=== PATIENT | female | born 1990 | race Asian ===

== ENCOUNTER 2023-07-17 08:00 | Outpatient (CLI) | payer OTHER, SELFPAY ==
--- NOTE | 2023-07-17 08:15 | CRLHL7_ITS ---
For Patients: As a result of the Century Cures Act, medical imaging exams and procedure reports are released immediately into your electronic medical record. You may view this report before your referring provider. If you have questions, please contact your health care provider. INDICATION: First trimester scan, establish dates. COMPARISON: None. TECHNIQUE: Real-time cornelius-scale imaging of the pelvis was performed. FINDINGS: Sonographic imaging demonstrates a single living intrauterine gestation. The embryo demonstrates a regular cardiac rate measuring 167 beats per minute. The embryo`s crown-rump length measurement of 1.9 cm corresponds to a gestational age of 8 weeks 3 days with a sonographic due date of 02/23/2024. There is a normal-appearing yolk sac. There are no gross abnormalities noted within the embryo at this early state of development. The gestational sac has a normal appearance. There is no evidence of a perigestational hemorrhage. The amount of fluid within the sac appears appropriate for gestational age. The cervix is closed. The myometrium appears normal. The ovaries are of normal size. Corpus luteal cyst right ovary. There are no suspicious fluid collections noted in the cul-de-sac. IMPRESSION: Normal first trimester OB ultrasound exam. Gestational age calculated at 8 weeks 3 days with a sonographic due date of 02/23/2024. Dictated by Nick Cabrera MD @ 07/17/2023 10:04:11 AM (Electronically Signed)
== END 2023-07-17 08:01 | disposition home or self-care (01) ==
LOC: US 08:02
PROVIDERS: PCP Nurse Practitioner Family; Visit Provider Advanced Practice Midwife
DX: Z34.91 Encounter for supervision of normal pregnancy, unspecified, first trimester (principal); Z3A.08 8 weeks gestation of pregnancy
CPT/HCPCS: 76817; 86592; 86703; 86704; 86706; 86762; 86787; 86803; 86850; 86900; 86901; 87086; 87340; 87491; 87591

== ENCOUNTER 2023-10-10 08:56 | Outpatient (CLI) | payer OTHER, SELFPAY ==
--- NOTE | 2023-10-10 09:15 | CRLHL7_ITS ---
For Patients: As a result of the Century Cures Act, medical imaging exams and procedure reports are released immediately into your electronic medical record. You may view this report before your referring provider. If you have questions, please contact your health care provider. INDICATION: Evaluate anatomy. COMPARISON: 07/17/2023 TECHNIQUE: Real time cornelius scale imaging of the fetus was performed as well as color Doppler analysis of the umbilical vessels. FINDINGS: Sonographic imaging demonstrates a single living intrauterine gestation. Fetus demonstrates a regular cardiac rate of 157 beats per minute. Fetus has a variable position. The placenta lies left posterior without evidence of placenta previa. Edge of the placenta is located 5.4 cm from the internal cervical os. Amniotic fluid volume appears normal. Single deepest vertical pocket: 4.9 cm. The cervix is closed and measures 4.1 cm in length. The composite ultrasound gestational age is calculated at 20 weeks 5 days with an estimated sonographic due date of 02/22/2024. The estimated weight is 408 grams which lies at the 57th %. The following biometric measurements were obtained: Biparietal diameter: 4.9 cm/20 weeks 6 days 40th% Head circumference: 18.3 cm/20 weeks 4 days 25th% Abdominal circumference: 17.0 cm/22 weeks 0 days 75th% Femur length: 3.3 cm/20 weeks 3 days 23rd% The HC/AC ratio measures: 1.07 range (1.06-1.25) On anatomic survey, there is a normal appearance of the cerebral ventricles, cavum septi pellucidi, cisterna magna and cerebellum. The nose, lips, and facial profile appear normal. The cervical, thoracic and lumbar spine are well visualized and appear normal. There is a normal four-chamber heart view and the left and right ventricular outflow tracts appear normal. The diaphragm and stomach appear normal. The kidneys and bladder also appear normal. There is a normal three-vessel cord and there is an eccentric cord insertion site. The four extremities appear normal. IMPRESSION: Normal OB ultrasound exam with concordance of clinical and sonographic dating. No intrinsic abnormalities noted on anatomic survey. Dictated by Nick Cabrera MD @ 10/10/2023 11:48:47 AM (Electronically Signed)
== END 2023-10-10 08:57 | disposition home or self-care (01) ==
LOC: US 08:57
PROVIDERS: PCP Nurse Practitioner Family; Visit Provider Advanced Practice Midwife
DX: Z34.92 Encounter for supervision of normal pregnancy, unspecified, second trimester (principal); Z3A.20 20 weeks gestation of pregnancy
CPT/HCPCS: 76805

== ENCOUNTER 2023-12-05 10:05 | Outpatient (CLI) | payer OTHER, SELFPAY | END 2023-12-05 10:06 | disposition home or self-care (01) | LOC: NFLDREF 10:06 | PROVIDERS: PCP Nurse Practitioner Family; Visit Provider Advanced Practice Midwife | DX: Z34.83 Encounter for supervision of other normal pregnancy, third trimester (principal) | CPT/HCPCS: 86592 ==

== ENCOUNTER 2023-12-30 16:40 | Outpatient (CLI) | payer OTHER, SELFPAY ==
--- NOTE | 2023-12-30 17:00 | US_ITS ---
Patient: CARRIE MACK Facility:?[facility] Patient ID:?[id number] Site Patient ID:?[id number]. Site :?1990 Study:?US-OB Pelvis OB F/U GROWTH-12/30/2023 6:08:12 PM Ordering Physician:?HEDY TRUJILLO CNM Final Report: OB ULTRASOUND TRANSABDOMINAL LMP: 05/16/2023. GABE by LMP: 02/20/2024. GA: 32w, 4d. Single. INDICATION: Gestational diabetes mellitus Follow-up growth COMPARISON: 10/10/2023. CERVIX: Not visualized. POSITIONING: Vertex. AMNIOTIC FLUID: 7.8 cm. PLACENTA: Technique: Transabdominal. PLACENTA POSITION: Posterior. DOPPLER: heart rate: 141 bpm. Biometry: BPD: 8.4 cm. 33w, 5d, 76 percent. HC: 31.1 cm. 34w, 5d, 71 percent. AC: 28.7 cm. 32w, 5d, 53 percent. FL: 6.0 cm. 31w, 2d, 10 percent. FL/AC ratio: 20.94 percent. HC/AC ratio: 1.08. EFW: 1998 g. Weight: 4 lbs, 6 oz. age by this US: 33w, 1d. GABE by this US: 02/16/2024. Percentile by GABE: 39 percent. IMPRESSION: Estimated weight is at the 39th percentile. KIRA TOMAS M.D. OSCARG:stanley [email or web address] be/Dictated by: Kira Tomas MD @ 12/31/2023 11:00:00 AM Signed by:?Kira Tomas MD @12/31/2023 4:46:00 PM (Electronic Signature)
== END 2023-12-30 16:41 | disposition home or self-care (01) ==
LOC: US 16:41
PROVIDERS: PCP Nurse Practitioner Family; Visit Provider Advanced Practice Midwife
DX: O24.419 Gestational diabetes mellitus in pregnancy, unspecified control (principal); Z3A.32 32 weeks gestation of pregnancy
CPT/HCPCS: 76816

== ENCOUNTER 2024-01-21 00:27 | Outpatient (CLI) | payer OTHER, SELFPAY ==
[2024-01-21 02:09] VITALS: BP 107/59; PULSE 73
[2024-01-21 02:13] VITALS: TEMP 36.8
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
== END 2024-01-21 02:50 | disposition home or self-care (01) ==
LOC: OB OUT 00:29 → OB 00:30
PROVIDERS: PCP Nurse Practitioner Family; Visit Provider Advanced Practice Midwife
DX: O24.419 Gestational diabetes mellitus in pregnancy, unspecified control (principal); Z3A.35 35 weeks gestation of pregnancy
CPT/HCPCS: 59025; G0463

== ENCOUNTER 2024-01-23 10:43 | Outpatient (CLI) | payer OTHER, SELFPAY ==
--- NOTE | 2024-01-23 11:00 | US_ITS ---
Patient: CARRIE MACK Facility:?[facility] Patient ID:?[id number] Site Patient ID:?[id number]. Site :?1990 Study:?US-OB Pelvis growth-01/23/2024 11:21:19 AM Ordering Physician:Dian Aguiar Final Report: INDICATION: gestational diabetes mellitus COMPARISON: 12.30.23 TECHNIQUE: Real time cornelius scale imaging of the fetus was performed. FINDINGS: Sonographic imaging demonstrates a single living intrauterine gestation. Fetus demonstrates a regular cardiac rate of 138 beats per minute. Fetus has a vertex position. The placenta lies posteriorly. Amniotic fluid volume appears normal and there is a single deepest vertical pocket: 6.4 cm. The estimated weight is 3168gm which lies at the 84th %. On the prior OB ultrasound exam dated 12/30/2023 the estimated weight was at the 39th%. BPD 72nd percentile. HC is 68th percentile. AC greater than 97th percentile. FL 8th percentile. The HC/AC ratio measures 0.96 range (0.92-1.05). IMPRESSION: Sonographic gestational age 36 weeks 6 days and sonographic due date of 02/14/2024. Sonographic age 6 days ahead of the clinical age. Estimated weight 84th percentile. Abdominal circumference greater than 97th percentile. Dictated by Nick Cabrera MD @ 01/23/2024 1:10:19 PM Signed by:?Nick Cabrera MD @01/23/2024 1:10:19 PM (Electronic Signature)
== END 2024-01-23 10:44 | disposition home or self-care (01) ==
LOC: US 10:44
PROVIDERS: PCP Nurse Practitioner Family; Visit Provider Advanced Practice Midwife
DX: O24.419 Gestational diabetes mellitus in pregnancy, unspecified control (principal); Z3A.36 36 weeks gestation of pregnancy
CPT/HCPCS: 76816

== ENCOUNTER 2024-01-23 16:15 | Outpatient (CLI) | payer OTHER, SELFPAY ==
[2024-01-24 14:07] LABS: Strep B DNA Probe Negative (Negative)
[2024-01-24 14:50] LABS: Strep B Susceptibility Needed? No
== END 2024-01-23 16:16 | disposition home or self-care (01) ==
LOC: NFLDREF 16:15
PROVIDERS: PCP Nurse Practitioner Family; Visit Provider Advanced Practice Midwife
DX: Z34.93 Encounter for supervision of normal pregnancy, unspecified, third trimester (principal); Z3A.36 36 weeks gestation of pregnancy
CPT/HCPCS: 76816; 87081; 87653

== ENCOUNTER 2024-01-30 14:33 | Outpatient (CLI) | payer OTHER, SELFPAY ==
[2024-01-30 14:44] VITALS: BP 117/81; PULSE 85; PULSE 90; O2SAT 97
[2024-01-30 14:45] VITALS: TEMP 36.6
--- NOTE | 2024-01-30 17:34 | PC.OBNST ---
NST Note NST Note Start: 01/30/24 14:47 Freq: ONCE Status: Active Protocol: Document 01/30/24 17:32 GNOSTICIST (Rec: 01/30/24 17:34 GNOSTICIST [id number]) NST Note 3 Para (# of births) 2 EDC 02/20/24 Gestational Age In Weeks & Days 37 Weeks & 0 Days High Risk Factors Diabetes - Gestational Diet Controlled Patient Presented with Complaint(s) of Other Reactive Yes Appropriate for Gestational Age Yes MAGGIE Velez Date 01/30/24 Reactive Yes Appropriate for Gestational Age Yes MAGGIE Davis Date 01/30/24 OB NST charge Yes Complete NST Note via Write Note Yes The provider's electronic signature indicates the NST is reactive/appropriate for gestational age. *Note to provider: If an addendum is required, open the patient's chart and click on the note under the Nurse/Allied Health tab.
== END 2024-01-30 15:30 | disposition home or self-care (01) ==
LOC: OB OUT 14:35 → OB 14:36
PROVIDERS: PCP Nurse Practitioner Family; Visit Provider Advanced Practice Midwife
DX: O24.419 Gestational diabetes mellitus in pregnancy, unspecified control (principal); Z3A.37 37 weeks gestation of pregnancy
CPT/HCPCS: 59025; G0463

== ENCOUNTER 2024-02-13 07:07 | Inpatient (IN) | payer OTHER, SELFPAY ==
[2024-02-13] VITALS (9 sets, daily range): BP systolic 118–143; BP diastolic 75–85; PULSE 75–89; RESP 14–16; TEMP 36.7–37; BMI 35.0
--- NOTE | 2024-02-13 08:56 | P.LDBA_ITS ---
Documented by User: Tiffanie Lance CNM 02/13/24 10:16 Subjective History of Present Illness Time Seen by Provider: 08:50 Date Seen: 02/13/24 Narrative: Patient is being admitted to Labor and Delivery for IOL due to GDMA1. She is a 33 year old at 39 0/7 weeks gestation. Her full history and physical was dictated by Chanda SAAVEDRA on 01/30/2024. Please see this for details. She has had two previous uncomplicated vaginal births, both with pregnancies with GDM. She has maintained good control of her gdm this . Last US findings below. Specific Issues/Plans : Vee H&P done by Erwin Avila CNM on 01/30/24 1. Gestational Diabetes- Pt accepts dx of GDM for this at 31wks Growth at 33.0 wks: 39% Growth at 36wks: 83%ile, AC 97%ile BID testing currently, continues with diet changes Hx of gestational diabetes X 2. -diet controlled w/ first, insulin w/ second. Encouraged diabetic diet and exercise now. -HgbA1C at NOB: 5.3 -Consider 20 week early GCT: wants to test sugars instead. Normal numbers. OK to stop and begin testing again at 28 -29 wks had spotty testing results, pt to continue and send numbers by portal -additional testing all normal numbers IOL at 39 weeks on 02/12; consent done and sched form filled out 2. 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 Likely somewhat situational, partner deployed shortly after 3. NOB lab results show past infection of Hep B with current immunity. Hep B antigen neg Hep B antibody positive Hep B core positive Covid: vaccinated, not boosted Flu: 07/17 tdap: 12/05/2023 OB - Problem Based A/P Additional Plan (1) Encounter for induction of labor: Status: Acute (2) Gestational diabetes: Status: Acute (3) Supervision of other normal : Status: Acute Plan Glucose checks morning fastings and 2 hr postprandial as assessed at home until in active labor. Then to follow intrapartum glucose monitoring policy when in active labor. Delivery/Labor/Induction Plan Plan: induction Induction method: per misoprostol protocol OB Result Labs Blood Type: AB (+) positive Rubella: immune RPR/VDLR: nonreactive GBS Status: negative HBsAG: negative OB Exam Physical Exam Vital signs: Vitals Reviewed Constitutional:? Alert and oriented x3 HEENT:? Normocephalic, atraumatic Neck:? Supple Lungs:? Clear to auscultation bilaterally Heart:? Regular rate and rhythm, no murmur, rub or gallop Abdomen:? Soft, nontender, and gravid. Vertex by Hero's, confirmed with cervical exam. Extremities:? No edema or erythema Cervix: 1 cm/20%/ballotable/vertex NST: 135 bpm/moderate variability/+accelerations/No decelerations/irregular contractions with some irritability Temp 98.1 F 02/13/24 07:34 Fetus A position: Right Occiput Posterior Documented by User: Morenita Vega CNM 02/13/24 16:11 Subjective History of Present Illness Specific Issues/Plans : Vee H&P done by Erwin Avila CNM on 01/30/24 1. Gestational Diabetes- Pt accepts dx of GDM for this at 31wks Growth at 33.0 wks: 39% Growth at 36wks: 83%ile, AC 97%ile BID testing currently, continues with diet changes Hx of gestational diabetes X 2. -diet controlled w/ first, insulin w/ second. Encouraged diabetic diet and exercise now. -HgbA1C at NOB: 5.3 -Consider 20 week early GCT: wants to test sugars instead. Normal numbers. OK to stop and begin testing again at 28 -29 wks had spotty testing results, pt to continue and send numbers by portal -additional testing all normal numbers IOL at 39 weeks on 02/12; consent done and sched form filled out 2. 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 Likely somewhat situational, partner deployed shortly after 3. NOB lab results show past infection of Hep B with current immunity. Hep B antigen neg Hep B antibody positive Hep B core positive Covid: vaccinated, not boosted Flu: 07/17 tdap: 12/05/2023 OB - Problem Based A/P Additional Plan (1) Encounter for induction of labor: Status: Acute (2) Gestational diabetes: Status: Acute (3) Supervision of other normal : Status: Acute Plan ASSESSMENT:? 33 at 39 0/7 weeks gestation? complicated by:?GDM, Hx of Heb B with immunity Labor type: Induced, not in labor? Category 1 FHR pattern.?? Labor complicated by: None? GBS negative? ? PLAN:? 1. Routine intrapartum cares as ordered. Discussed options and recommend cytotec per protocol every 4 hours. Patient agrees with plan. 2. Monitoring per policy, continuous with induction agent? 3. Planning unmedicated . Desires water . Consent signed. Hep C negative. Candidate for analgesia of choice, if desired.?? 4. Patient encouraged to reposition and ambulate to promote physiologic labor an d .? 5. Glucose checks morning fastings and 2 hr postprandial as assessed at home until in active labor. Then to follow intrapartum glucose monitoring policy when in active labor. 6. Anticipate ? OB Exam Physical Exam Vital signs: Vitals Reviewed Constitutional:? Alert and oriented x3 HEENT:? Normocephalic, atraumatic Neck:? Supple Lungs:? Clear to auscultation bilaterally Heart:? Regular rate and rhythm, no murmur, rub or gallop Abdomen:? Soft, nontender, and gravid. Vertex by Hero's, confirmed with cervical exam. Extremities:? No edema or erythema Cervix: 1 cm/20%/ballotable/vertex NST: 135 bpm/moderate variability/+accelerations/No decelerations/irregular contractions with some irritability Temperature 98.5 F 02/13/24 14:14 Pulse Rate 83 02/13/24 14:14 Blood Pressure 121/75 02/13/24 14:14 Blood Pressure Mean 92 02/13/24 14:14
[2024-02-13] MEDS: miSOPROStoL 25 MCG/0.25 TABLET VAGINAL ×2 (09:33→13:44)
[2024-02-13] MEDS: LACTATED RINGERS 1000 ML 1,000 ML 125 ML IV (21:20)
[2024-02-13] MEDS: OXYTOCIN 30 unit/500 ML in NS 30 UNIT/500 ML BAG IVPB (21:23)
--- NOTE | 2024-02-13 21:32 | PM.OBPNL ---
Subjective Date Seen: 02/13/24 Narrative: Sweta is a 33 yo at 39 0/7 weeks gestation here for IOL for GDM diet controlled. Patient is supported in labor by her partner. Objective Exam: Objective: Constitutional: Alert and oriented x3, moderate distress, coping well Vital signs stable, see nurse documentation Abdomen: gravid, contractions palpate moderate with contractions and soft between Cervix: 3 cm/50%/-3 station/vertex NST: 145 bpm/moderate variability/15x15 accelerations/occasional early decelerations/contractions every 2-5 minutes Vital Signs: Last Vital Signs Temp 98.1 F 02/13/24 17:48 Pulse 83 02/13/24 21:24 BP 128/83 02/13/24 21:24 Plan Plan: ASSESSMENT:? 33 at 39 0/7 weeks gestation? complicated by:?GDM, Hx of Heb B with immunity Labor type: Induced, not in labor? Category 1 FHR pattern.?? Labor complicated by: None? GBS negative? ? PLAN:? 1. Routine intrapartum cares as ordered. Discussed options and recommend cytotec per protocol every 4 hours. Patient agrees with plan. 2. Monitoring per policy, continuous with induction agent? 3. Planning unmedicated . Desires water . Consent signed. Hep C negative. Candidate for analgesia of choice, if desired.?? 4. Patient encouraged to reposition and ambulate to promote physiologic labor and .? 5. Glucose checks 2 hr postprandial as assessed at home until in active labor. Then to follow intrapartum glucose monitoring policy when in active labor. 6. Anticipate ?
[2024-02-14] VITALS (99 sets, daily range): BP systolic 105–149; BP diastolic 58–87; PULSE 71–139; RESP 16; TEMP 36.7–37.4; O2SAT 90–100
[2024-02-14] MEDS: LACTATED RINGERS 1000 ML 1,000 ML 125 ML IV ×3 (05:03→13:35)
--- NOTE | 2024-02-14 07:12 | PM.OBPNL ---
Subjective Time Seen by Provider: 06:00 Date Seen: 02/14/24 Narrative: Sweta is a 33 yo at 39 1/7 weeks gestation here for IOL for GDM diet controlled. Her induction was started with 2 doses of cytotec then IV pitocin. She is feeling painful regular contractions. She desires to discuss AROM. is here for labor support. Objective Exam: Objective: Constitutional: Alert and oriented x3, moderate distress, coping well Vital signs stable, see nurse documentation Abdomen: gravid, contractions palpate strong with contractions and soft between Cervix: 4 cm/60%/-2 station/vertex. AROM of clear fluid NST: 130 bpm/moderate variability/15x15 accelerations/no decelerations/contractions every 3 minutes Vital Signs: Last Vital Signs Temp 98.4 F 02/14/24 05:01 Pulse 74 02/14/24 06:01 Resp 16 02/14/24 05:01 BP 119/77 02/14/24 06:01 Plan Plan: ASSESSMENT:? 33 at 39 1/7 weeks gestation? complicated by:?GDM, Hx of Heb B with immunity Labor type: Induced, active labor Category 1 FHR pattern.?? Labor complicated by: None? GBS negative? ? PLAN:? 1. Routine intrapartum cares as ordered. Discussed options and recommend cytotec per protocol every 4 hours. Patient agrees with plan. 2. Monitoring per policy, continuous with induction agent? 3. Planning unmedicated . Desires water . Consent signed. Hep C negative. Candidate for analgesia of choice, if desired.?? 4. Patient encouraged to reposition and ambulate to promote physiologic labor and .? 5. Glucose checks 2 hr postprandial as assessed at home until in active labor. Then to follow intrapartum glucose monitoring policy when in active labor. 6. Anticipate ?
--- NOTE | 2024-02-14 08:20 | PM.OBPNL ---
Subjective Time Seen by Provider: 08:20 Date Seen: 02/14/24 Narrative: Sweta is laboring and doing well with contractions. She was feeling pushy and had entered the waterbirth tub around 0730. Began to push with some contractions about 0750 then about 15 minutes later wanted to get out of the tub as she felt like she was too buoyant. Began to ask for an epidural as she feels very tired, she got out of the tub into bed and was examined with next contraction found to be . She would like to move forward with and epidural at this time. Objective Exam: VSS, afebrile General Appearance:? Calm, cooperative. ?No acute distress. ? Psychiatric Exam: Alert and oriented, appropriate affect Abdomen: Gravid Ctx: ?Q 3 min apart. ? ? ?Strong FHTs: ?Baseline: 130. ? ? Variability: moderate. ?Accels: -. ? ?Decels: ?early. SVE: Membranes: ?AROM clear Vital Signs: Last Vital Signs Temp 98.1 F 02/14/24 07:18 Pulse 87 02/14/24 07:21 Resp 16 02/14/24 05:01 BP 124/68 02/14/24 07:21 Plan Plan: Assessment:?? at 39.1 weeks gestation?? GBS negative Patient is coping well with challenges of labor.?? Labor type: induced, Active labor? Category 2 FHR pattern.? complicated by: GDM, history of Heb B with immunity Labor complicated by: NA Plan:?? Epidural placement now per pt request Continue with routine intrapartum cares as ordered.?? Patient encouraged to move and change positions to promote physiologic labor and .?? Reassess status once more comfortable Anticipate progress to NVD. ?
[2024-02-14] MEDS: LIDOCAINE 2% (PF) 5 ML VIAL EPIDURAL (08:55)
[2024-02-14] MEDS: ROPIVACAINE 0.2% 100 ml 100 ML 10 MG EPIDURAL (08:55)
--- NOTE | 2024-02-14 09:00 | P.ANBPRC_ITS ---
[facility] Medical History (Updated 02/13/24 @ 09:18 by Tiffanie Lance CNM) History of depression ?Z87.59 - Personal history of other complications of , childbirth and the puerperium (ICD-10) ?Z86.59 - Personal history of other mental and behavioral disorders (ICD-10) Hx gestational diabetes ?Z86.32 - Personal history of gestational diabetes (ICD-10) Surgical History (Updated 01/27/23 @ 08:49 by Monika Blackman APRN, LOULOU) History of wisdom tooth extraction ?K08.409 - Partial loss of teeth, unspecified cause, unspecified class (ICD- 10) Family History (Updated 01/27/23 @ 08:54 by Monika Blackman APRN, LOULOU) Maternal Grandmother Diabetes Father Diabetes Mother Diabetes Social History (Updated 07/17/23 @ 10:23 by Rajni Louise CNM) Narrative: SOCIAL? ? 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 ? 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 ? Partner: Vee, , electronics technician? ? Lives with: Vee, 2 kids? ? Pets: denies? ? Abuse: Denies past Safe at home with current partner ? ? Special Diet: Denies? ? Ok with a blood transfusion: yes? ? Culture or anglican beliefs: Does do a specific diet PP, partner will bring. ? RISK FACTORS? ? Exercise Times/wk: walking and stretches. ? ? Depression/Anxiety: PP depression after first - somewhat situational, partner was deployed just after delivery.? ? Previous Treatments: none Therapy: 2 sessions after first RAJENDRA: 2 PHQ 9: 1? ? Seat Belt Use: Routinely ? Smoking: Denies past/present? ? Alcohol/day: Denies while ? ? Caffeine: occ? ? Drug Use: Denies past/present? ? . 2 children. Works for [employer] No formal exercise. Non-smoker. No alcohol. No illicit drug use. What is your current living situation?: I presently have a place to live Problems where you live: no known problems In the past 12 months, utilities in danger of being shut off: no In past 12 months, lack of transportation kept you from medical appts, meetings, work, or getting things needed for daily living: no In the past 12 mos, have been you worried that your food would run out before you had money to buy more?: never true In the past 12 mos, the food you bought just didn't last and you didn't have money to buy more?: never true Smoking Status: Never smoker How often does anyone, including family, friends and others, physically hurt you : never How often does anyone, including family, friends and others, insult or talk down to you: never How often does anyone, including family, friends and others, threaten you with harm: never How often does anyone, including family, friends and others, scream or curse at you: never Little interest or pleasure in doing things: several days Feeling down, depressed, or hopeless: not at all Meds Home Medications and Allergies Home Medications ?Medication ?Instructions ?Recorded ?Confirmed ?Type vitamin #56-iron 35 mg 1 cap PO QDAY 07/17/23 02/13/24 History and 5 mg-folic acid 1 mg-dha capsule Allergies Allergy/AdvReac Type Severity Reaction Status Date / Time No Known Drug Allergies Allergy Verified 02/13/24 07:46 Results Vital Signs Vital Signs: Last Vital Signs Temp 98.1 F 02/14/24 07:18 Pulse 104 H 02/14/24 08:59 Resp 16 02/14/24 05:01 BP 109/67 02/14/24 08:59 Pulse Ox 100 02/14/24 08:56 Weight: 81.465 kg Height: 152.4 cm Anesthesia Procedures Epidural Insertion Patient Location: OB Start Time: 08:30 Stop Time: 09:05 Start Date: 02/14/24 Stop Date: 02/14/24 Reason for Block: primary anesthetic Patient Position: sitting Performed By: Erik Wharton Preanesthetic Checklist: IV checked, risks and benefits discussed, surgical consent, monitors and equipment checked, pre-op evaluation, timeout performed and anesthesia consent Prep: chlorhexidine gluconate Monitoring: blood pressure monitoring, night monitor, continuous pulse oximetry and heart rate Approach: midline Vertebral Space: lumbar (1-5) Needle Type: Tuohy needle Injection Technique: continuous catheter (catheter) Needle gauge: 17 Needle Length (cm): 10 cm Needle Insertion Depth (cm): 5 Catheter Gauge: 19 Catheter Type: multi-orifice Catheter at skin depth (cm): 10 Test Dose Result: negative and lidocaine 1.5% with epinephrine 1 to 200,000
--- NOTE | 2024-02-14 11:14 | P.OBPN_ITS ---
Subjective Date Seen: 02/14/24 Narrative: ?Sweta is coping well with labor pain/contractions. ?Anai is with her for support. ?She would like to continue with her epidural for comfort and pain management.?She is now comfortable and only feeling some pressure with contractions. Discussed plan going forward, would like to check for dilation and position, if not complete will plan to place IUPC for better assessment of contractions. Pt agrees with the plan. Objective Exam: VSS, afebrile General Appearance:? Calm, cooperative. ?No acute distress. ? Psychiatric Exam: Alert and oriented, appropriate affect Abdomen: Gravid Ctx: ?Q 3-5 min apart. ? ? ?Moderate palpation FHTs: ?Baseline: 140. ? ? Variability: moderate. ?Accels: +. ? ?Decels: ?-. SVE: 9cm/90/-1 Membranes: ?AROM clear Vital Signs: Last Vital Signs Temp 98.1 F 02/14/24 07:18 Pulse 85 02/14/24 11:04 Resp 16 02/14/24 05:01 BP 123/75 02/14/24 11:04 Pulse Ox 90 02/14/24 09:13 Plan Plan: Assessment:?? at 39.1 weeks gestation?? GBS neg Patient is coping well with challenges of labor.?? Labor type: induced, active labor? Category 1 FHR pattern.? complicated by: Diet controlled GDM, Hx Hep B with immunity Labor complicated by: slow progression from 9cm, not complete at this time? Plan:?? IUPC placed for assessment of contraction strength. Continue with routine intrapartum cares as ordered.?? Patient encouraged to move and change positions to promote physiologic labor and .?staff genetic counselor helping with position changes. Epidural now infusing per anesthesia for pain. Increase IV Pitocin per protocol for adequate MVU's. Titrate per patient and response. Anticipate progress to NVD. ?
[2024-02-14 13:49] LABS: Basophils Percent Auto 0.1 % (0.0-3.0); Eosinophils Percent Auto 0.1 % (0.0-7.0); Hematocrit 39.2 % (33.0-51.0); Hemoglobin* 12.6 gm/dL (12.0-16.0); Immature Granulocytes Pct Auto 0.4 %; Mean Corpuscular HGB Conc 32 gm/dL (32-36); Mean Corpuscular Hemoglobin 26 pg (26-34); Mean Corpuscular Volume 82 fL (80-100); Monocytes Percent Auto 5.5 % (0.0-11.0); Neutrophils Percent Auto 85.9 % (42.0-72.0); Platelet Count* 242 K/uL (140-440); RDW Coefficient of Variation % 13.3 % (11.5-15.5); Red Blood Count 4.77 m/uL (4.00-5.20); White Blood Count* 13.92 K/uL (4.50-11.00)
[2024-02-14 13:54] LABS: Slide Review Reflex No
[2024-02-14] MEDS: ACETAMINOPHEN 500 MG TABLET 1000 MG PO (14:57)
--- NOTE | 2024-02-14 15:03 | PM.OBPNL ---
Subjective Time Seen by Provider: 15:05 Date Seen: 02/14/24 Narrative: Sweta has been complete and pushing since 1350. She has strong effort but baby has not made decent with pushing. By vaginal exam baby feels OP, Dr. Watson is requested to come try help turn baby. Will do side-lying release and an inversion to try help change position while waiting for her to arrive. Maternal temp is slightly higher at 99.4 F and Maternal Heart rate is increased in 120-130 range, she is complaining of a head ache. FHR has increased now 160's, still have moderate variability. Encouraged Sweta to rest while waiting for OB provider to arrive. Objective Exam: VSS, afebrile General Appearance:? Calm, cooperative. ?No acute distress. ? Psychiatric Exam: Alert and oriented, appropriate affect Abdomen: Gravid Ctx: ?Q 2-3 min apart. ? ? ? FHTs: ?Baseline: 150. ? ? Variability: moderate. ?Accels: +. ? ?Decels: ?variables. SVE: 10/100/0 Membranes: ?AROM clear Vital Signs: Last Vital Signs Temp 98.8 F 02/14/24 13:15 Pulse 126 H 02/14/24 14:34 Resp 16 02/14/24 05:01 BP 125/64 02/14/24 14:34 Pulse Ox 100 02/14/24 14:58 Contractions Pitocin Rate (mU/min): 15 Assessment Assessment: induction ongoing Station: 0 Amniotic Membrane Status: AROM Status: Category l Plan Plan: Assessment:?? at 39.1 gestation?? GBS neg Patient is coping well with challenges of labor.?? Labor type: induced, Active labor? Category 1 FHR pattern.? complicated by: DC GDM, Hep B infection with immunity Labor complicated by: Slow progression in second stage? Plan:?? consult OB for assessment of position Continue with routine intrapartum cares as ordered.?? Patient encouraged to move and change positions to promote physiologic labor and .?? Epidural infusing for pain management Anticipate progress to NVD. ?
--- NOTE | 2024-02-14 15:40 | P.OBCN_ITS ---
OB - CN: HPI Date of Consult Time Seen by Provider: 15:42 Date Seen: 02/14/24 Patient: [facility] Patient Consult date: 02/14/24 Requesting Physician: Ousmane Avila CNM Primary Care Provider: Monika Blackman APRN, TRAUMA THERAPIST Consult Narrative Narrative: The patient is a 33 year old G 3 P 2 at 39w1d weeks gestation that was admitted to the [facility] on 02/13/24 for induction of labor for GDM A1. is otherwise complicated by a history of GDM and 2 uncomplicated SVDs. Patient was admitted on 02/13/24, s/p Cytotec for cervical ripening with Pitocin and AROM for augmentation. She has had a labor dystocia in the active phase, making slow change but ultimately achieving complete cervical dilation at 1340. After 1 hour of pushing, the consultation was requested by primary provider given suspected OT or OP position. heart rate through the 2nd stage has been primarily category 1. Most recently baseline of 150 beats per minute with moderate variability and accelerations present, decelerations absent. I presented the bedside where Sweta affirms the above history. She notes some ongoing pain with contractions and headache, making it hard to push. We discussed assessment for position and potential interventions, patient agreed to proceed. History History 3 Elective abortions 0 Para 2 Spontaneous abortions 0 Hx # Term Pregnancies 2 Ectopic pregnancies Hx # Pregnancies 0 Multiple births Number of Living Children 2 Past Pregnancies Del. Date GA/Weeks Outcome Route wt Inf Gender Labor Lgth Anesthesia Location Provider Compli 10/27/17 39 live - full term 7 lb 5 oz Male gestational diabetes 06/04/19 39 live - full term 7 lb 5 oz Male gestational diabetes Delivery Date: 10/27/17 Last Updated by: Rajni Louise CNM gestational diabetes, diet controlled Delivery Date: 06/04/19 Last Updated by: Rajni Louise CNM gestational diabetes, insulin controlled Labs Blood type: AB (+) positive Rubella: immune RPR/VDLR: nonreactive GBS status: negative HBsAG: negative OB Labs: Lab Assessment Start: 02/13/24 07:18 Freq: ONCE Status: Complete Protocol: PC.OBGBS Activity Type Activity Date Activity User E-sign Co-sign Detail Recorded Client Recorded Date Recorded By Document 02/13/24 07:30 HCR Desktop 02/13/24 07:46 HCR 02/13/24 07:30 Lab Assessment GBS Status negative GBS Additional Criteria None No Treatment Needed OK Are Labs Available Yes Maternal Blood Type B Maternal RH Factor Positive Evaluate Maternal Rubella Immune Status Immune Hepatitis B Surface Antigen Negative Maternal HIV Status Negative Maternal Syphillis (RPR) Status Negative PFSH PFSH Medical History (Updated 02/13/24 @ 09:18 by Tiffanie Lance CNM) History of depression ?Z87.59 - Personal history of other complications of , childbirth and the puerperium (ICD-10) ?Z86.59 - Personal history of other mental and behavioral disorders (ICD-10) Hx gestational diabetes ?Z86.32 - Personal history of gestational diabetes (ICD-10) Surgical History (Updated 01/27/23 @ 08:49 by Monika Blackman APRN, LOULOU) History of wisdom tooth extraction ?K08.409 - Partial loss of teeth, unspecified cause, unspecified class (ICD- 10) Family History (Updated 01/27/23 @ 08:54 by Monika Blackman APRN, LOULOU) Maternal Grandmother Diabetes Father Diabetes Mother Diabetes Social History (Updated 07/17/23 @ 10:23 by Rajni Louise CNM) Narrative: SOCIAL? ? 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 ? 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 ? Partner: Vee, , microbiological laboratory technician? ? Lives with: Vee, 2 kids? ? Pets: denies? ? Abuse: Denies past Safe at home with current partner ? ? Special Diet: Denies? ? Ok with a blood transfusion: yes? ? Culture or episcopalian beliefs: Does do a specific diet PP, partner will bring. ? RISK FACTORS? ? Exercise Times/wk: walking and stretches. ? ? Depression/Anxiety: PP depression after first - somewhat situational, partner was deployed just after delivery.? ? Previous Treatments: none Therapy: 2 sessions after first RAJENDRA: 2 PHQ 9: 1? ? Seat Belt Use: Routinely ? Smoking: Denies past/present? ? Alcohol/day: Denies while ? ? Caffeine: occ? ? Drug Use: Denies past/present? ? . 2 children. Works for [employer]. No formal exercise. Non-smoker. No alcohol. No illicit drug use. What is your current living situation?: I presently have a place to live Problems where you live: no known problems In the past 12 months, utilities in danger of being shut off: no In past 12 months, lack of transportation kept you from medical appts, meetings, work, or getting things needed for daily living: no In the past 12 mos, have been you worried that your food would run out before you had money to buy more?: never true In the past 12 mos, the food you bought just didn't last and you didn't have money to buy more?: never true Smoking Status: Never smoker How often does anyone, including family, friends and others, physically hurt you : never How often does anyone, including family, friends and others, insult or talk down to you: never How often does anyone, including family, friends and others, threaten you with harm: never How often does anyone, including family, friends and others, scream or curse at you: never Little interest or pleasure in doing things: several days Feeling down, depressed, or hopeless: not at all Meds Home Medications and Allergies Home Medications ?Medication ?Instructions ?Recorded ?Confirmed ?Type vitamin #56-iron 35 mg 1 cap PO QDAY 07/17/23 02/13/24 History and 5 mg-folic acid 1 mg-dha capsule Allergies Allergy/AdvReac Type Severity Reaction Status Date / Time No Known Drug Allergies Allergy Verified 02/13/24 07:46 OB - H&P: Exam Physical Exam: Vital signs: Temp Pulse Resp BP Pulse Ox 99.4 F 109 H 16 116/75 100 02/14/24 14:57 02/14/24 15:35 02/14/24 05:01 02/14/24 15:35 02/14/24 15:38 Narrative: General: Alert and oriented. Breasts are contractions. Abdomen: Gravid. EFW 3600g by [employer]. EFW by last ultrasound on 3168g at the 84%ile with AC >97%ile on 01/22. Cervix: Complete cervical dilation. 0 station. position palpates between ROP and ROT, anterior fontanelle at 2 o'clock. Transabdominal ultrasound: spine noted to maternal right. OB - Results Labs Labs: Short CBC 02/14/24 Range/Units 13:35 WBC 13.92 H (4.50-11.00) K/uL Hgb 12.6 (12.0-16.0) gm/dL Hct 39.2 (33.0-51.0) % Plt Count 242 (140-440) K/uL OB - CN: A/P Assessment and Plan (1) Encounter for induction of labor: Status: Acute (2) Gestational diabetes: Status: Acute (3) Supervision of other normal : Status: Acute Plan Sweta is a 33yo at 39w1d GA ongoing IOL for GDMA1. Labor progress notable for slow progress through the active phase, now complete and pushing for 1 hour without descent. Ob consultation was requested by QUENTIN Romeo given suspected malposition. On my exam, anterior fontanelle palpates at approximately 2 o'clock consistent with suspected ROP position. TAUS confirms spine to the maternal right. We discussed options for management OP, including expected management with cont inued expulsive efforts for a total of 3 hours (multip with epidural) versus manual rotation. We reviewed potential benefit of manual rotation would be to shorten the second stage but risks include that we may not be successful, fetus could convert back to ROP, heart rate changes and cord accident. Sweta notes her energy is low and feels like she can't push any longer. Explained is always an option but I would not medically recommend it at this time. Reviewed risks of including difficulty with extraction (possibly impacted head), bleeding, infection, damage to surrounding structures such as the uterus, tubes, ovaries, bowel, bladder or blood vessels. Sweta and her considered their options further. Upon return to the room, she expresses a desire of manual rotation followed by pushing. Repeat exam was performed, where the head was gently grasped from ROP position and elevated. Clockwise rotation of the head was attempted slowly, where position was easily revised to ROT. A second rotation effort was completed where digital exam and by TAUS direct OA position was confirmed. head was gently guided back into pelvis along with maternal expulsive efforts, ultimately at 0 station. Continuous heart rate monitoring was completed, category 1 throughout. Plan to continue maternal expulsive efforts with primary Ob provider. I will reassess shortly. Recommend trial of at least one hour of pushing before medically indicated delivery, could consider C/S sooner by maternal request.
--- NOTE | 2024-02-14 18:34 | W.PM.VAGDE_ITS ---
OB Procedure Vag Delivery Mother Details Mother Details: The patient is a 33 year-old, 3, Para 2, admitted on 02/13/24 at 39.0 weeks gestation for induction of labor for diet controlled GDM. : 3 Para: 2 Weeks Gestation: 39.1 Admission Date: 02/13/24 Additional Details Amniotic Membrane Status: AROM Amniotic Membrane Rupture Date: 02/14/24 Amniotic Membrane Rupture Time: 05:58 Amniotic Membrane Fluid Description: Clear Analgesia/Anesthesia Type: Epidural Waterbirth: No Pitcoin: Yes Intrapartal Events: Labor Induction Induction Method: per misoprostol protocol and per pitocin protocol Delivery augmentation: rupture of membranes Labor Onset: 06:00 Complete: 13:39 Pushin:50 Heart: heart tones during second stage were Category 2, continuously monitored with occasional variables. Delivery Details Delivery Date: 02/14/24 Delivery Time: 18:10 Route of delivery: Gender: Male Infant Viability: Alive; Heart Rate Present Position at Delivery: OA Delivery Details: 33?y.o?at 39.1 weeks.? Sweta was admitted on 02/13/24 for induction of labor, she was started on Cytotec for cervical ripening and slept overnight. She was then switched to IV Pitocin once she had a more favorable cervix. Was AROM'd this morning at 0558 for clear fluid and then was feeling pushy so entered the waterbirth tub and was pushing spontaneously with some contractions. After a short time she desired to get out of the tub and was requesting an epidural. Prior to placement she was found to be 9 cm. She was progressing slowly and was checked approximately an hour after epidural placement and had not made cervical change. An IUPC was placed for better monitoring of contractions and noted to be inadequate. IV Pitocin was titrated up per protocol to max dose of 15mu/hr then she progressed to complete at 1339. She began pushing at 1350 but was not moving baby after one hour. OB tar and ammonia pump operator was consulted, Dr. Watson came to the bedside and manually turned baby to OA position, see her note for details. Sweta then started pushing again at 1615 and made good progress. ?She pushed in multiple positions effectively, total time of pushing was approximately 3 hours. ?Contactions were spaced out considerably after head was repositioned and needed IV Pitocin which had been turned down during repositioning to be titrated back up to 14 mu/hr done per protocol. ? ? Spontaneous vaginal delivery at 1810 of?a viable?male infant.??Delivered in vertex OA position.??Shoulders delivered easily.? Spontaneous cry noted.?? placed on maternal abdomen.??Cord?was clamped and cut after a 5+ minute delay.??Nose and mouth were bulb suctioned.? Shoulder dystocia: no? Nuchal cord: no? Meconium stained?fluid: no? Water : no? ? ? 7 at 1 minute and 8 at 5 minutes.? Weight is pending. ? Placenta delivered spontaneously and?complete?at 1820 with a?3 vessel?cord.?? Bleeding controlled with fundal massage and?pitocin?for AMTSL.? ? Mother and were stable after delivery.? ? Lacerations:? No tears observed, small abrasions to labia and perineum. Swollen perineal tissue. ? Bleeding?post delivery?was: minimal. ?The fundus was firm to palpation.? Blood loss: 100?mL.? Blood loss measurement type: QBL? ? ? Sponge,?lap?and needles counts are correct.? Mother and were stable after delivery.? 1 Minute Interval Total Score: 7 5 Minute Interval Total Score: 8 Additional Details Shoulder Dystocia: No Placenta Delivery Time: 18:20 Placental Delivery Description: Spontaneous Procedure Done: Global Blood Loss: 100 Laceration: Superficial Blood Loss Measurement Type: QBL Bakri Used: No Sponge/Need Count Correct: Yes Cord Vessel Description: 3 Vessels Event Summary Status: Mother and were stable after delivery. Disposition: floor
[2024-02-14 19:15] LABS: Hematocrit 37.9 % (33.0-51.0); Hemoglobin* 12.3 gm/dL (12.0-16.0); Mean Corpuscular HGB Conc 33 gm/dL (32-36); Mean Corpuscular Hemoglobin 27 pg (26-34); Mean Corpuscular Volume 82 fL (80-100); Platelet Count* 238 K/uL (140-440); Red Blood Count 4.65 m/uL (4.00-5.20); White Blood Count* 19.61 K/uL (4.50-11.00)
[2024-02-14 19:17] LABS: Slide Review Reflex No
[2024-02-14 19:33] LABS: Aspartate Amino Transferase* 21 U/L (12-35); Blood Urea Nitrogen* 12 mg/dL (5-24); Creatinine* 0.7 mg/dL (0.5-1.5); Est. Creatinine Clearance* 82.88; Estimated Glomerular Filt Rate 118 ml/min
[2024-02-14 19:34] LABS: Alanine Aminotransferase* 14 U/L (4-35)
[2024-02-14] MEDS: IBUPROFEN 600 MG TABLET PO (22:00)
[2024-02-15 00:17] VITALS: BP 99/67; PULSE 114; RESP 18; TEMP 37.1; O2SAT 99
[2024-02-15 03:38] VITALS: BP 92/61; PULSE 80; RESP 16; TEMP 36.6; O2SAT 98
[2024-02-15] MEDS: IBUPROFEN 600 MG TABLET PO ×2 (06:21→18:02)
[2024-02-15 07:10] LABS: Glucose Fasting 89 mg/dl (70-95)
--- NOTE | 2024-02-15 07:26 | PM.OBDSVD1 ---
DS: Providers Provider Date Seen: 02/15/24 Date of admission: 02/13/24 07:07 Primary care physician: Monika Blackman, MULTI PURPOSE MACHINE OPERATOR, AUDITING MANAGER Admitting Clinician: Morenita Vega CNM Consults: 02/14/24 15:39 Consult to Physician [CONS] Routine Comment: Consulting Provider: Xiomara Watson Has provider been notified: Yes Attending Physician on discharge: Ousmane Avila CNM Date of Discharge: 02/15/24 DS: Diagnosis Discharge Diagnosis (1) care and examination immediately after delivery: Status: Acute (2) Lactating mother: Status: Acute (3) Gestational [-induced] hypertension without significant proteinuria, complicating childbirth: Status: Acute Exam Narrative: Exam Narrative: VSS, afebrile GENERAL APPEARANCE: ?normal affect, alert, no distress MOOD: ?appropriate HEENT: normocephalic, neck supple, full ROM CHEST: ?Symmetrical chest wall movement. ?Normal respiratory effort. ?Clear to auscultation HEART: ?regular rate and rhythm ABDOMEN: ?soft, non-tender. Uterine fundus is firm, at Umbilicus, Midline and is appropriate for the stage of recovery. ?Bowel sounds present. PERINEUM: ?mild edema of the perineum, there is no tear. EXTREMITIES: ?normal and no edema Const: Vital Signs, click to edit/add: Vital Signs - 24 hr 02/14/24 08:23 02/14/24 08:26 02/14/24 08:36 Temperature Pulse Rate Pulse Rate [Blood Pressure Cuff] Respiratory Rate Blood Pressure Blood Pressure [Ri ght Arm] Pulse Oximetry 100 91 [facility] 02[facility] 08:41 02/14/24 08:46 02/14/24 08:50 Temperature Pulse Rate 103 H Pulse Rate [Blood Pressure Cuff] Respiratory Rate Blood Pressure 144/74 H Blood Pressure [Ri ght Arm] Pulse Oximetry 100 100 [facility] 02/14/24 08:51 02/14/24 08:52 02/14/24 08:54 Temperature Pulse Rate 92 121 H Pulse Rate [Blood Pressure Cuff] Respiratory Rate Blood Pressure 132/69 137/81 Blood Pressure [Ri ght Arm] Pulse Oximetry 100 [facility] 02/14/24 08:56 02/14/24 08:59 02/14/24 09:00 Temperature Pulse Rate 85 104 H 92 Pulse Rate [Blood Pressure Cuff] Respiratory Rate Blood Pressure 107/69 109/67 109/61 Blood Pressure [Ri ght Arm] Pulse Oximetry 100 Oxygen Delivery Co thod 02/14/24 09:01 02/14/24 09:06 02/14/24 09:11 Temperature Pulse Rate 89 Pulse Rate [Blood Pressure Cuff] Respiratory Rate Blood Pressure 109/58 L Blood Pressure [Ri ght Arm] Pulse Oximetry 100 99 97 [facility] 02/14/24 09:13 02/14/24 09:16 02/14/24 09:21 Temperature Pulse Rate 82 85 Pulse Rate [Blood Pressure Cuff] Respiratory Rate Blood Pressure 107/67 105/65 Blood Pressure [Ri ght Arm] Pulse Oximetry 90 [facility] 02/14/24 09:27 02/14/24 09:32 02/14/24 09:49 Temperature Pulse Rate 88 91 85 Pulse Rate [Blood Pressure Cuff] Respiratory Rate Blood Pressure 120/69 135/73 111/71 Blood Pressure [Ri ght Arm] Pulse Oximetry [facility] 02/14/24 10:04 02/14/24 10:19 02/14/24 10:24 Temperature 98.3 F Pulse Rate 102 H 90 Pulse Rate [Blood Pressure Cuff] Respiratory Rate Blood Pressure 110/73 124/65 Blood Pressure [Ri ght Arm] Pulse Oximetry [facility] 02/14/24 10:34 02/14/24 10:50 02/14/24 11:04 Temperature Pulse Rate 78 76 85 Pulse Rate [Blood Pressure Cuff] Respiratory Rate Blood Pressure 120/75 120/74 123/75 Blood Pressure [Ri ght Arm] Pulse Oximetry [facility] 02/14/24 11:20 02/14/24 11:34 02/14/24 11:49 Temperature Pulse Rate 89 102 H 98 Pulse Rate [Blood Pressure Cuff] Respiratory Rate Blood Pressure 112/68 106/66 113/65 Blood Pressure [Ri ght Arm] Pulse Oximetry Oxygen Delivery Co thod 02/14/24 12:00 02/14/24 12:19 02/14/24 12:34 Temperature 98.4 F Pulse Rate 83 94 Pulse Rate [Blood Pressure Cuff] Respiratory Rate Blood Pressure 108/63 108/63 Blood Pressure [Ri ght Arm] Pulse Oximetry [facility] 02/14/24 12:50 02/14/24 13:05 02/14/24 13:15 Temperature 98.8 F Pulse Rate 80 83 Pulse Rate [Blood Pressure Cuff] Respiratory Rate Blood Pressure 106/63 107/62 Blood Pressure [Ri ght Arm] Pulse Oximetry Oxygen Delivery Co thod 02/14/24 13:19 02/14/24 13:49 02/14/24 14:01 Temperature 99.1 F Pulse Rate 83 114 H Pulse Rate [Blood Pressure Cuff] Respiratory Rate Blood Pressure 134/86 123/80 Blood Pressure [Ri ght Arm] Pulse Oximetry [facility] 02/14/24 14:04 02/14/24 14:34 02/14/24 14:48 Temperature Pulse Rate 107 H 126 H Pulse Rate [Blood Pressure Cuff] Respiratory Rate Blood Pressure 149/83 H 125/64 Blood Pressure [Ri ght Arm] Pulse Oximetry 100 [facility] 02/14/24 14:53 02/14/24 14:57 02/14/24 14:58 Temperature 99.4 F Pulse Rate Pulse Rate [Blood Pressure Cuff] Respiratory Rate Blood Pressure Blood Pressure [Ri ght Arm] Pulse Oximetry 100 100 [facility] 02/14/24 15:03 02/14/24 15:04 02/14/24 15:08 Temperature Pulse Rate 127 H Pulse Rate [Blood Pressure Cuff] Respiratory Rate Blood Pressure 122/78 Blood Pressure [Ri ght Arm] Pulse Oximetry 100 100 Oxygen Delivery Co thod 02/14/24 15:13 02/14/24 15:18 02/14/24 15:20 Temperature Pulse Rate 113 H Pulse Rate [Blood Pressure Cuff] Respiratory Rate Blood Pressure 131/77 Blood Pressure [Ri ght Arm] Pulse Oximetry 99 100 [facility] 02/14/24 15:23 02/14/24 15:28 02/14/24 15:33 Temperature Pulse Rate Pulse Rate [Blood Pressure Cuff] Respiratory Rate Blood Pressure Blood Pressure [Ri ght Arm] Pulse Oximetry 100 100 99 Oxygen Delivery Co thod 02/14/24 15:35 02/14/24 15:38 02/14/24 15:49 Temperature Pulse Rate 109 H 102 H Pulse Rate [Blood Pressure Cuff] Respiratory Rate Blood Pressure 116/75 134/87 Blood Pressure [Ri ght Arm] Pulse Oximetry 100 Oxygen Delivery Me thod 02/14/24 15:50 02/14/24 15:50 02/14/24 15:55 Temperature 99.4 F Pulse Rate Pulse Rate [Blood Pressure Cuff] Respiratory Rate Blood Pressure Blood Pressure [Ri ght Arm] Pulse Oximetry 93 93 100 Oxygen Delivery Me thod 02/14/24 16:00 02/14/24 16:04 02/14/24 16:05 Temperature Pulse Rate 91 Pulse Rate [Blood Pressure Cuff] Respiratory Rate Blood Pressure 140/74 H Blood Pressure [Ri ght Arm] Pulse Oximetry 99 100 Oxygen Delivery Co thod 02/14/24 16:10 02/14/24 16:15 02/14/24 16:19 Temperature Pulse Rate 86 Pulse Rate [Blood Pressure Cuff] Respiratory Rate Blood Pressure 124/69 Blood Pressure [Ri ght Arm] Pulse Oximetry 100 100 Oxygen Delivery Co thod 02/14/24 16:20 02/14/24 16:25 02/14/24 16:30 Temperature Pulse Rate Pulse Rate [Blood Pressure Cuff] Respiratory Rate Blood Pressure Blood Pressure [Ri ght Arm] Pulse Oximetry 100 100 99 Oxygen Delivery Co thod 02/14/24 16:35 02/14/24 16:36 02/14/24 16:40 Temperature Pulse Rate 95 Pulse Rate [Blood Pressure Cuff] Respiratory Rate Blood Pressure 120/68 Blood Pressure [Ri ght Arm] Pulse Oximetry 99 100 Oxygen Delivery Co thod 02/14/24 16:45 02/14/24 16:49 02/14/24 16:50 Temperature Pulse Rate 108 H Pulse Rate [Blood Pressure Cuff] Respiratory Rate Blood Pressure 135/70 Blood Pressure [Ri ght Arm] Pulse Oximetry 98 99 Oxygen Delivery Co thod 02/14/24 16:55 02/14/24 17:01 02/14/24 17:04 Temperature 99.1 F Pulse Rate 117 H Pulse Rate [Blood Pressure Cuff] Respiratory Rate Blood Pressure 129/69 Blood Pressure [Ri ght Arm] Pulse Oximetry 99 Oxygen Delivery Co thod 02/14/24 17:19 02/14/24 17:34 02/14/24 17:49 Temperature Pulse Rate 123 H 130 H 111 H Pulse Rate [Blood Pressure Cuff] Respiratory Rate Blood Pressure 128/73 139/76 118/64 Blood Pressure [Ri ght Arm] Pulse Oximetry Oxygen Delivery Co thod 02/14/24 18:04 02/14/24 18:19 02/14/24 18:21 Temperature Pulse Rate 122 H 104 H 108 H Pulse Rate [Blood Pressure Cuff] Respiratory Rate Blood Pressure 129/79 123/60 126/61 Blood Pressure [Ri ght Arm] Pulse Oximetry Oxygen Delivery Me thod 02/14/24 18:36 02/14/24 18:51 02/14/24 19:09 Temperature Pulse Rate 97 85 83 Pulse Rate [Blood Pressure Cuff] Respiratory Rate Blood Pressure 114/60 112/59 L 114/66 Blood Pressure [Ri ght Arm] Pulse Oximetry Oxygen Delivery Me thod 02/14/24 19:21 02/14/24 19:36 02/14/24 19:51 Temperature Pulse Rate 75 84 85 Pulse Rate [Blood Pressure Cuff] Respiratory Rate Blood Pressure 111/68 108/69 112/69 Blood Pressure [Ri ght Arm] Pulse Oximetry Oxygen Delivery Me thod 02/14/24 20:06 02/14/24 20:21 02/15/24 00:17 Temperature 98.8 F Pulse Rate 90 86 Pulse Rate [Blood Pressure Cuff] 114 H Respiratory Rate 18 Blood Pressure 112/67 124/79 Blood Pressure [Ri ght Arm] 99/67 Pulse Oximetry 99 Oxygen Delivery Me thod Room Air 02/15/24 03:38 Temperature 97.8 F Pulse Rate Pulse Rate [Blood Pressure Cuff] 80 Respiratory Rate 16 Blood Pressure Blood Pressure [Ri ght Arm] 92/61 Pulse Oximetry 98 Oxygen Delivery Me thod Room Air Documenting provider has reviewed patient's vital signs: yes OB - DS: Summary Hospital Course Hospital Course: Sweta is a 33 y.o. who was admitted to [facility] for induction of labor for diet controlled GDM. ?She had an uncomplicated NVD.?The patient feels well. ?The pain is well controlled with current medications. ?She has no new complaints. ?She is breast feeding and reports things are going well.? the patient has done well.? Vitals have been stable.? She has remained afebrile.? Has a good appetite, is tolerating a general diet. ?She is voiding without difficulty.? She is passing gas and has not had a bowel movement.? She is ambulating and denies any dizziness.? Has Small amount of rubra lochia. ?She is planning the mini pill for prevention. Peripartum Data delivery method: Vaginal Laceration description: Superficial complications: none Gender: Male Infant Discharge Plan: Home Status at Discharge Functional status at discharge: independent ambulation Overall status at discharge: patient is progressing back to baseline Time Spent with Patient Time attestation: Total time spent providing and/or coordinating discharge services: Time spent: Less than 30 minutes Discharge Plan Discharge Disposition: Home, Self-Care Date of Admission: 02/13/24 07:07 Consulting Providers: Xiomara Watson Primary Care Provider: Monika Blackman Condition: Stable Anticipated Discharge Date/Time: 02/15/24 19:00 Discharge Medications: New docusate sodium 100 mg Capsule 100 mg PO DAILY Qty: 90 1RF ibuprofen 600 mg Tablet 600 mg PO Q6H PRNQty: 60 0RF acetaminophen 500 mg Tablet 1,000 mg PO Q6H PRNQty: 0 0RF Continued PNV #[id number] acid-dha 35 mg iron-5 mg iron-1 mg capsule 1 cap PO QDAY Discontinued (DME) Test Strips Misc See Rx Instructions .MEDSUPPLY Qty: 280 3RF Rx Instructions: Test blood sugar 4 times daily. (DME) lancets Misc See Rx Instructions .MEDSUPPLY Qty: 200 3RF Rx Instructions: Test blood sugar 4 times daily. Discharge Orders: Discharge Order (Routine); Ordered 02/15/24 Ordered By: Ousmane Avila Patient Education: OB High Blood Pressure DC, OB Over the Counter Medication Information, OB Vaginal/Breast Feeding Additional Instructions: Discharge instructions were reviewed with the patient including signs and symptoms of infection and home going medications Nothing vaginally for 6 weeks: no tampons or intercourse Off Work or School for 6 weeks [facility] a [facility]?on 02/18/24. Call with BP greater than or equal to 150/100 2-week visit: discuss feeding concerns, review control options and screen for anxiety/depression. 6-week visit for an annual exam. consultation services are available to all mothers and babies for the first year after delivery.? To make an appointment, please call [phone]. Activity Level: Activity as Tolerated Discharge Diet: Regular Follow Up Appointments: Monika Blackman APRN, AUDITING MANAGER [Primary Care Provider] - [facility] [Provider Group] Forms: [facility] Info Instructions
[2024-02-15 07:44] VITALS: BP 91/58; PULSE 69; RESP 16; TEMP 36.5; O2SAT 95
--- NOTE | 2024-02-15 08:36 | PM.ANPOST ---
Post Anesthesia Note Post Anesthesia Note Patient seen: Inpatient Respiratory Status: adequate Cardiovascular Status: adequate Mental Status: baseline Pain: adequate Temp: baseline Anesthetic awareness: N/A Complications: none Follow care: none
[2024-02-15 09:21] LABS: Glucose 2 Hour 190 mg/dl (70-155)
[2024-02-15 10:07] LABS: Glucose Fasting Check 99 mg/dl (60-115)
[2024-02-15] MEDS: ACETAMINOPHEN 500 MG TABLET 1000 MG PO (12:54)
[2024-02-15] MEDS: DOCUSATE SODIUM 100 MG CAPSULE PO (12:54)
[2024-02-15 12:56] VITALS: BP 96/67; PULSE 83; RESP 16; TEMP 36.6
[2024-02-15 17:55] VITALS: BP 86/56; PULSE 75; RESP 16; TEMP 36.7; O2SAT 97
[2024-02-17 16:59] LABS: Rapid Plasma Reagin (RPR) Non Reactive (Non Reactive)
== END 2024-02-15 20:00 | disposition home or self-care (01) | DRG 807 ==
PROVIDERS: Advanced Practice Midwife; Admitting Provider Advanced Practice Midwife; PCP Nurse Practitioner Family; Visit Provider Advanced Practice Midwife
DX: O24.420 Gestational diabetes mellitus in childbirth, diet controlled (principal); Z37.0 Single live birth; O63.1 Prolonged second stage (of labor); O13.4 Gestational [pregnancy-induced] hypertension without significant proteinuria, complicating childbirth; Z3A.39 39 weeks gestation of pregnancy; Z86.59 Personal history of other mental and behavioral disorders
CPT/HCPCS: 01967; 36415; 59200; 82565; 82947; 82950; 82962; 84450; 84460; 84520; 85025; 85027; 86592; 86850; 86900; 86901; A9270; J2371; J2795; J7120

== ENCOUNTER 2024-08-27 09:56 | Outpatient (CLI) | payer OTHER, SELFPAY ==
--- NOTE | 2024-08-27 10:15 | CRLHL7_ITS ---
For Patients: As a result of the Cures Act, medical imaging exams and procedure reports are released immediately into your electronic medical record. You may view this report before your referring provider. If you have questions, please contact your health care provider. INDICATION: First trimester scan, establish dates. COMPARISON: None. TECHNIQUE: Real-time cornelius-scale imaging of the pelvis was performed. FINDINGS: Sonographic imaging demonstrates a single living intrauterine gestation. The embryo demonstrates a regular cardiac rate measuring 176 beats per minute. The embryo`s crown-rump length measurement of 2.4 cm corresponds to a gestational age of 9 weeks 0 days with a sonographic due date of 04/01/2025. There is a normal-appearing yolk sac. There are no gross abnormalities noted within the embryo at this early state of development. The gestational sac has a normal appearance. There is no evidence of a perigestational hemorrhage. The amount of fluid within the sac appears appropriate for gestational age. The cervix is closed. The myometrium appears normal. Normal left ovary. Right ovary not visualized. There are no suspicious fluid collections noted in the cul-de-sac. IMPRESSION: Single living intrauterine with sonographic gestational age 9 weeks 0 days and a sonographic due date of 04/01/2025. Dictated by Nick Cabrera MD @ 08/27/2024 10:56:27 AM (Electronically Signed)
== END 2024-08-27 09:57 | disposition home or self-care (01) ==
LOC: US 09:56
PROVIDERS: PCP Nurse Practitioner Family; Visit Provider Advanced Practice Midwife
DX: Z34.91 Encounter for supervision of normal pregnancy, unspecified, first trimester (principal); Z3A.09 9 weeks gestation of pregnancy
CPT/HCPCS: 76817

== ENCOUNTER 2024-08-27 10:53 | Outpatient (CLI) | payer OTHER, SELFPAY | END 2024-08-27 10:54 | disposition home or self-care (01) | PROVIDERS: PCP Nurse Practitioner Family; Visit Provider Advanced Practice Midwife | DX: Z34.81 Encounter for supervision of other normal pregnancy, first trimester (principal) | CPT/HCPCS: 82565; 82570; 83020; 83021; 84156; 84450; 84460; 84550; 85660; 86592; 86703; 86704; 86706; 86762; 86787; 86803; 87086; 87340 ==

== ENCOUNTER 2024-09-10 12:10 | Outpatient (CLI) | payer OTHER, SELFPAY | END 2024-09-10 12:11 | disposition home or self-care (01) | LOC: NFLDREF 09-12 04:18 | PROVIDERS: PCP Nurse Practitioner Family; Referring Provider Nurse Practitioner Family; Visit Provider Advanced Practice Midwife | DX: Z34.90 Encounter for supervision of normal pregnancy, unspecified, unspecified trimester (principal); Z87.59 Personal history of other complications of pregnancy, childbirth and the puerperium | CPT/HCPCS: 82570; 84156 ==

== ENCOUNTER 2024-11-12 11:10 | Outpatient (CLI) | payer OTHER, SELFPAY | END 2024-11-12 11:11 | disposition home or self-care (01) | PROVIDERS: PCP Nurse Practitioner Family; Visit Provider Advanced Practice Midwife | DX: Z34.92 Encounter for supervision of normal pregnancy, unspecified, second trimester (principal); Z3A.20 20 weeks gestation of pregnancy | CPT/HCPCS: 76805 ==

== ENCOUNTER 2024-11-16 16:23 | Outpatient (CLI) | payer OTHER, SELFPAY | END 2024-11-16 16:24 | disposition home or self-care (01) | PROVIDERS: PCP Nurse Practitioner Family; Visit Provider Advanced Practice Midwife | DX: Q82.6 Congenital sacral dimple (principal) | CPT/HCPCS: 81511; 82105 ==

== ENCOUNTER 2024-12-10 11:39 | Outpatient (CLI) | payer OTHER, SELFPAY | END 2024-12-10 11:40 | disposition home or self-care (01) | LOC: NFLDREF 11:40 | PROVIDERS: PCP Nurse Practitioner Family; Visit Provider Advanced Practice Midwife | DX: Z34.92 Encounter for supervision of normal pregnancy, unspecified, second trimester (principal); R04.0 Epistaxis; Z3A.24 24 weeks gestation of pregnancy | CPT/HCPCS: 82728 ==

== ENCOUNTER 2025-01-07 11:44 | Outpatient (CLI) | payer OTHER, SELFPAY | END 2025-01-07 11:45 | disposition home or self-care (01) | LOC: NFLDREF 01-13 18:39 | PROVIDERS: PCP Nurse Practitioner Family; Referring Provider Nurse Practitioner Family; Visit Provider Midwife | DX: Z34.83 Encounter for supervision of other normal pregnancy, third trimester (principal) | CPT/HCPCS: 86592 ==

== ENCOUNTER 2025-02-17 11:12 | Outpatient (CLI) | payer OTHER, SELFPAY | END 2025-02-17 11:13 | disposition home or self-care (01) | LOC: NFLDREF 11:13 | PROVIDERS: PCP Nurse Practitioner Family; Visit Provider Advanced Practice Midwife | DX: R04.0 Epistaxis (principal) | CPT/HCPCS: 82728 ==

== ENCOUNTER 2025-02-25 07:15 | Outpatient (CLI) | payer OTHER, SELFPAY ==
--- OUTSIDE RECORDS SUMMARY | 2025-01-19 15:30 | XMS_ITS | Encounter Summary ---
Author Organization [facility] Address [address] [place] [id number] Care Team Providers Care Cake Wringer Name Role Phone Elsewhere, Pcp Primary Care Provider Unavailabl e Reason for Visit * Appointment Request (Routine) - Authorized Specialty Diagnoses / Procedures Referred By Contac t Referred To Contact Otorhinolaryngology Referral ID Status Reason Start Date Expiration Date V isits Requested Visits Authorized [id number] Authorized 12/31/2024 04/02/2026 1 1 Encounter Details Date Type Department Care Team (Latest Contact Info) Description 01/19/2025 3:30 PM CDT Clinical Communication Virtual Review in [place], [place] [address] [place] [address] Social History Tobacco Use Types Packs/Day Years Used Date Smoking Tobacco: Never Smokeless Tobacco: Never Alcohol Use Standard Drinks/Week Comments Never 0 (1 standard drink = 0.6 oz pur e alcohol) Estimated Date of Delivery Comme nts Yes 03/28/2025 Date entered savanna or to episode creation Sex and Gender Information Value Date Recorded Sex Assigned at Female 01/24/2025 1:12 PM CDT Legal Sex Female 1:22 PM SHIP/REC/DOC CONTROL Gender Identity Female 01/24/2025 1:12 PM CDT Sexual Orientation Straight 01/24/2025 1: 12 PM CDT documented as of this encounter Plan of Treatment Upcoming Encounters Date Type Department Care Team ( st Contact Info) Description 04/11/2025 10:15 AM CDT Office Visit Department of Otorhinolaryngology in [place], [place] [address] [place] [phone] Kwame Pugh M.D. [address] [place] [address] documented as of this encounter Visit Diagnoses Not on filedocumented in this encounter Care Teams Cake Wringer Relationship Specialty Start Date End Date Elsewhere, Pcp PCP - General Internal Medicine 09/25/22 02/02/25 documented as of this encounter
--- OUTSIDE RECORDS SUMMARY | 2025-01-24 13:00 | XMS_ITS | Encounter Summary ---
Author Organization [facility] Address [address] [place] [address] Care Team Providers Care Plaster Pattern Caster Name Role Phone Elsewhere, Pcp Primary Care Provider Unavailabl e Reason for Referral * Outpatient (Routine) - Authorized Specialty Diagnoses / Procedures Referred By Liz snyder Referred To Contact Otorhinolaryngology Kwame Pugh M.D. [address] [place] [address] Phone: tel: fax: [facility] Referral ID Status Reason Start Date Expiration Date V isits Requested Visits Authorized [id number] Authorized 01/24/2025 07/26/2026 1 1 Scheduling Instructions 2-3 months Reason for Visit * Outpatient (Routine) - Closed Specialty Diagnoses / Procedures Referred By Liz snyder Referred To Contact Otorhinolaryngology Diagnoses Epistaxis Lesion Intranasal Granuloma Pyogenic Timur, Chantal Shaw, P.A.-C. [address] [place] [phone] Phone: tel: fax: [facility] Referral ID Status Reason Start Date Expiration Date Visits Re quested Visits Authorized [id number] Closed 12/15/2024 06/16/2026 1 1 Encounter Details Date Type Department Care Team (Latest Contact Info) Description 01/24/2025 1:00 PM CDT Comprehensive Visit Department of Otorhinolaryngology in [place], [place] [address] [place] [address] Kwame Pugh M.D. 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 - 01/24/2025 1:00 PM CDT CHIEF COMPLAINT: No chief complaint on file. HPI: Sweta Pierre is a 34 y.o. female who presents with left sided nasal mass and left sided epistaxis She is currently 31 weeks . She began having left-sided nosebleeds at the very end of her 1st trimester. Sometimes the nosebleeds are just spotting, but sometimes they can last up to 10-15 minutes. They resolve with pressure. She was seen in the emergency department for a nosebleed and a mass was seen in her nose. She was then referred to ENT. She was seen by BAR Arellano in the health system. At that time, a mass was seen in her nose and she was diagnosed with a pyogenic granuloma. Since then, she reports that she has nosebleeds wanted to times per week. Again, they resolve with pressure. She has increasing left-sided nasal obstruction, and feels that the mass has grown. She has been using Afrin for nasal obstruction. She is a nonsmoker. No prior nasal surgery. She is not on a blood thinner. No new lumps or bumps inthe neck PAST MEDICAL HISTORY Medical History[1] SURGICAL HISTORY Surgical History[2] ALLERGIES Allergies[3] FAMILY HISTORY Family History[4] SOCIAL HISTORY Social History Socioeconomic History Marital status: Spouse name: Not on file Number of children: Not on file Years of education: Not on file Highest education level: Not on file Occupational History Not on file Tobacco Use Smoking status: Never Smokeless tobacco: Never Vaping Use Vaping status: never used Substance and Sexual Activity Alcohol use: Never Drug use: Not on file Sexual activity: Not on file Other Topics Concern Not on file Social History Narrative Not on file Social Drivers of Health Food Insecurity: Not on file Transportation Needs: Not on file Physical Activity: Not on file Intimate Partner Violence: Not on file Housing Stability: Not on file PHYSICAL EXAM VITAL SIGNS: There were no vitals taken for this visit. General: Awake, alert, oriented. Patient in no apparent distress. Face: Symmetric, No gross facial deformity or lesions. Eyes: Pupils equal, round, reactive to light. Extraocular movements intact without gaze restrictions or nystagmus. Sclera are clear without injection. Ears: No external deformities. Nose: External appearance within normal distribution. On anterior rhinoscopy nasal mucosa pink and moist. Left anterior mass, completely obstructive Neck: Supple, normal range of motion. Trachea midline. No palpable cervical lymphadenopathy or masses bilaterally. Thyroid and parotid glands without palpable masses. Pulmonary: Patient breathing comfortably and quietly on room air. No stridor or respiratory distress. PROCEDURE NOTE: Procedure: Rigid nasal endoscopy Indication: Nasal mass Informed Consent: After explaining the risks, benefits and alternatives of nasal endoscopy, the patient confirmed understanding verbally and did wish to proceed. Findings: After topical anesthesia and decongestion with Lidocaine and Afrin spray, rigid endoscopywas performed using a 0 degree endoscope. Right Inferior turbinates was normal. Right middle turbinate in good position. Right middle meatus free of polyps, purulent drainage, edema, masses. Left nasal cavity completely obstructed by erythematous mass. No active bleeding. There were no complications and the patient tolerated the procedure well. ASSESSMENT & PLAN #1 Epistaxis #2 Lesion Intranasal #3 Granuloma Pyogenic ASSESSMENT/PLAN: Sweta Pierre is a 34-year-old female who is currently 31 weeks who presents with recurrent left-sided epistaxis and a now completely obstructive left-sided mass which is consistent with a pyogenic granuloma. Currently, her symptoms include left-sided nasal obstruction and 1-2 nosebleeds per week. Her nosebleeds have been of indicating resolved with holding pressure on the nose. Wediscussed that these lesions typically do get better after delivery, but given the size of her pyogenic granuloma, she will likely need surgical removal after delivery. We would like to follow up with her around 2 weeks . We also discussed that if she bleeds more severely or if these symptoms become more bothersome to her, we could consider taking out in the operating room prior to delivery. She was wondering about the possibility of a nosebleed during delivery, which is certainly possible. Instructed her to spray copious Afrin and place a nose clamp to hold pressure if she has any acute nosebleeds. All questions were answered to the best of our ability [1] No past medical history on file. [2] No past surgical history on file. [3] No Known Allergies [4] No family history on file. Cosigned by Kwame Pugh M.D. at 01/25/2025 11:31 AM CDT Associated attestation - Kwame Pugh M.D. - 01/25/2025 11:31 AM CDT It was a pleasure to meet Sweta Pierre who is a 31 week female with left nasal mass that developed her on the 2nd trimester. Endoscopy shows vascular lesion arising from the left nasal septum and filling the entire nasal cavity. Right side is clear with clear middle meatus and sphenoethmoidalrecess. Discussed that this is almost certainly a pyogenic granuloma, discussed that it is thin bleeding is manageable we would typically wait until after she delivers to manage this lesion surgically. Of course, we can not be fully certain that the lesion is a pyogenic granuloma without pathology although it appears very consistent with this. If the bleeding becomes more frequent she will let usknow and we will excise the lesion, if possible we will try to wait until after she delivers and then remove the lesion at that point. She understands that she can call at any point if symptoms worsen. Otherwise follow up in 2-3 months. Lyle Pugh MD Rhinology and Skull Base Surgery [place], [place] documented in this encounter Plan of Treatment Upcoming Encounters Date Type Department Care Team (Late st Contact Info) Description 04/11/2025 10:15 AM CDT Office Visit Department of Otorhinolaryngology in [place], [place] [address] [place] [address] Kwame Pugh M.D. [address] [place] [address] Scheduled Referrals Name Type Priority Associated Diagnoses Order Schedule Otorhinolaryngology office visit (clinic) Outpatient Referral Routine Expected: 04/11/2025, Expires: 04/26/2026 documented as of this encounter Visit Diagnoses Diagnosis Epistaxis Lesion Intranasal Granuloma Pyogenic documented in this encounter Care Teams Plaster Pattern Caster Relationship Specialty Start Date End Date Elsewhere, Pcp PCP - General Internal Medicine 09/25/22 02/02/25 documented as of this encounter
--- OUTSIDE RECORDS SUMMARY | 2025-01-24 13:25 | XMS_ITS | Encounter Summary ---
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 [address] [place] [phone] documented as of this encounter Procedures Procedure Name Priority Date/Time Associated Diagnosis Comments OTORHINOLARYNGOLOGY IMAGE EXAM Routine 01/24/2025 1:25 PM CDT documented in this encounter Results * Nasal Endoscopy-Otorhinolaryngology Image Exam (01/24/2025 1:25 PM CDT) 01/24/2025 1:22 PM CDT Narrative IIMS - 01/24/2025 1:46 PM CDT This order has been created and auto-finalized to support the import of images acquired without order. The clinical documentation to support these images can be found on the encounter that produced images. us Provider Not In System IMG NON RAD IMAGING PROCE DURES Final Result IIMS NA documented in this encounter Visit Diagnoses Not on filedocumented in this encounter Care Teams Assembly Person Relationship Specialty Start Date End Date Elsewhere, Pcp PCP - General Internal Medicine 09/25/22 02/02/25 documented as of this encounter
--- OUTSIDE RECORDS SUMMARY | 2025-02-03 05:50 | XMS_ITS | Encounter Summary ---
Author Organization [facility] Address [address] [place] [address] Care Team Providers Care Wire Spinner Name Role Phone None Reported, Pcp Primary Care Provider Unavail able Reason for Referral * Outpatient (Routine) - Authorized Specialty Diagnoses / Procedures Referred By Contac t Referred To Contact Diagnoses 33 Weeks Gestation (HCC) Procedures Miscellaneous FBC Procedures Jaclyn Lynch M.D. [address] [place] [address] Phone: tel: fax: [facility] Referral ID Status Reason Start Date Expiration Date V isits Requested Visits Authorized [id number] Authorized 02/03/2025 05/06/2026 1 1 Reason for Visit * Reason Comments Epistaxis (Nose Bleed) Encounter Details Date Type Department Care Team (Late st Contact Info) Description 02/03/2025 5:50 AM CDT - 02/03/2025 11:28 AM CDT Emergency [facility] Emergency Department [address] [place] [phone] New Guevara M.D. [address] [place] [phone] Epistaxis (Primary Dx); 33 Weeks Gestation (HCC) Discharge Disposition: Home or Self Care Social History Tobacco Use Types Packs/Day Years [...] PM CDT Legal Sex Female 1:[address] V[address]OR Gender Identity Female 01/24/2025 1:12 PM CDT Sexual Orientation Straight 01/24/2025 1: 12 PM CDT documented as of this encounter Last Filed Vital Signs Vital Sign Reading Time Taken Comments Blood Pressure 124/88 02/03/2025 11:25 AM CDT Pulse 100 02/03/2025 11:25 AM CDT Temperature 37 C (98.6 F) 02/03/2025 5:54 AM CDT Respiratory Rate 16 02/03/2025 11:25 AM CDT Oxygen Saturation 96% 02/03/2025 11:25 AM CDT Inhaled Oxygen Concentration - - Weight 84 kg (185 lb 3 oz) 02/03/2025 5:52 AM CD T Height 152.4 cm (5') 02/03/2025 5:52 AM CDT Body Mass Index 36.17 02/03/2025 5:52 AM CDT documented in this encounter Discharge Instructions * Discharge Instructions* Hina Menon M.D. - 02/03/2025 11:20 AM CDT You were seen in the [facility] Emergency Department for nosebleed. You were seen by ENT,who has arranged for an outpatient procedure with you tomorrow. Please return to the ED if you experience further episodes of nosebleed, especially with lightheadedness, difficulty breathing, vomiting, or other worrisome symptoms. This emergency visit to the hospital is not a substitute for comprehensive and ongoing medical care. In most cases, you must let your primary care provider evaluate you again. Call your primary care provider today to advise them of your ED visit and arrange for outpatient follow up. Tell your provider about any new or lasting problems. documented in this encounter Medications at Time of Discharge freestyle 28 gauge lancets 4 (four) times a day. 12/25/2024 FreeStyle Lite Strips 4 test daily. 12/21/2024 multivitamin-iron tablet Take 1 tablet by mouth daily. oxyCODONE (Roxicodone) 5 mg immediate release tabletIndications :Acute Pain Take 1 tablet (5 mg total) by mouth every 3 (three) hours as needed for pain Indication: Acute Pain. 5 tablet 02/04/2025 oxymetazoline (Afrin) 0.05 % nasal sprayIndications: Epistaxis,Lesion Intranasal Administer 2 sprays into each nostril 2 (two) times a day as needed (epistaxis). May apply on tissue to help stop bleeds. Avoid use more than 5 days. 11/30/2024 PNV no.95/ferrous fum/folic ac ( ORAL) Take 1 tablet by mouth daily. sodium chloride ([place]) 0.65 % nasal sprayIndications: Epistaxis,Lesion Intranasal Administer 1 spray into each nostril 4 (four) times a day. 11/30/2024 sodium chloride-sodium bicarbonate (Neilmed Sinus Rinse Complete) nasal rinseIndications: Epistaxis,Lesion Intranasal Administer 1 Application into each nostril 2 (two) times a day. 11/30/2024 documented as of this encounter Consult Notes * Felicity Rosario M.D. - 02/03/2025 9:54 AM CDTAssociated Order(s): IP CONSULT TO OTORHINOLARYNGOLOGY OTORHINOLARYNGOLOGY ED CONSULT Chief Complaint: Epistaxis History of Present Illness: Sweta Pierre is a 34 y.o. female currently 33 weeks presenting to the ED with epistaxis since 4:00 a.m. 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 She was previouslyseen by Dr. Pugh on 01/24/25 for recurrent epistaxis secondary to the mass. At that time, it was discussed that patient would likely require surgical removal of the mass after delivery with the possib ility of excision sooner if bleeding became more severe or consistent. I saw Ms. Pierre in ED. She was not actively bleeding on my arrival. She states she has had 4 episodes of epistaxis since her visit with Dr. Pugh. They have been controlled with pressure and Afrin. However, this most recent one was more difficult to control, leading her to present to the ED. She hasswallowed some blood, but denies difficulty breathing or choking. Past Medical History: Medical History[1] Family History: Family History[2] Physical Exam: Vital Signs: Vitals: 02/03/25 0800 BP: 121/79 Pulse: 105 Resp: Temp: SpO2: 96% General: Awake, alert, oriented, in no acute distress Face: Symmetric. House-Brackmann 1/6 bilaterally. Eyes: EOMI Nose: Normal external appearance. Nasal mucosa pink and moist. On anterior rhinoscopy, large left-sided obstructive mass with minimal oozing of blood. No active epistaxis. No purulence. Neck: Normal range of motion. Trachea is midline. No lymphadenopathy palpable in any of the neck levels on either side. Thyroid was normal in size and there were no palpable nodules. Pulmonary: Non-labored breathing, no wheezing or stridor noted. Cardiac: [place], well-perfused extremities, no signs of cyanosis. Assessment/Plan: Problem List[3] Sweta Pierre is a 34 y.o. female female who is presenting with epistaxis with known left-sided obstructive nasal mass. She is 33 weeks . We discussed that given the repeated epistaxis episodes, that the nasal mass can be removed prior to delivery, and as soon as tomorrow with Dr. Pugh. We would need to consult with her OB team to discuss the operating room plan. Patient can either stay overnight in preparation for OR, or discharge and return tomorrow. I will discuss this with her and let her decide. 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 Pugh 02/04/25 [1] History reviewed. No pertinent past medical history. [2] History reviewed. No pertinent family history. [3] There is no problem list on file for this patient. Cosigned by Waylon Castro M.D., Ph.D. at 02/04/2025 11:51 AM CDT documented in this encounter ED Notes * New Guevara M.D. - 02/03/2025 8:56 AM CDT I have personally seen and examined this patient. I have fully participated in the care of this patient. I have reviewed all clinical information including history, physical exam, orders, and plan. Tk with the note of the resident. 34-year-old female who is approximately 33 weeks presents with a nosebleed out of the leftnostril that has started this morning. She arrived to the ED and a nose clamp was placed. She has been known follow up in the left side of the nose that has been seen by ENT previously. On review of d ocumentation from ENT there is concern this is pyogenic granuloma. When I evaluate the patient, she is hemodynamically stable and the bleeding had been controlled at this time. We will has been Afrin at bedside and discuss with the ENT with regards to potential future interventions that has that has suggested potential operative intervention in the future post delivery however may consider intervention prior to delivery if they become more frequent. ED Course as of 02/04/25 075 Marnie February 03, 2025 0905 CBC and BMP without significant anemia or significant electrolyte derangement. 0943 ENT as with the patient we will plan for operative intervention tomorrow as an outpatient. They request that has to be be consulted for optimization for preoperative care. Final Diagnoses: as of 02/04/25 0753 Epistaxis 33 Weeks Gestation (HCC) New Guevara M.D. 02/04/25752 * Hina Menon M.D. - 02/03/2025 8:37 AM CDT CHIEF COMPLAINT/REASON FOR VISIT Epistaxis (Nose Bleed) ASSESSMENT / PLAN Ms. Pierre is a very pleasant 34 y.o. female who presents to the ED for evaluation of epistaxis thatbegan at approximately 4:00 a.m. this morning and lasted approximately half an hour. Patient is being followed by ENT, has a known polyp in the left naris. Polyp is large and will likely require surgery per patient. Patient has been having more frequent bleeding in the last week. Last prolonged bleed was in November before today. Patient complaining of mild headache. No nausea, no vomiting, no fever, no chills, no dyspnea. Patient does have congestion right now. At the time of interview, the nose is not bleeding. Patient denies any abdominal pain or cramping, vaginal bleeding or abnormal vaginaldischarge, changes in vision, lower extremity edema, or changes in urination. Endorses good movement. Patient is normotensive, tachycardic, and afebrile. On exam, patient is overall well-appearing. Polyp visible in the left nares with fresh blood, but not actively bleeding. No blood in the oral cavity or posterior oropharynx. FHR 130 bpm via doppler. Known pyogenic granuloma. Afrin. Will discuss with ENT as patient's bleeding has become more frequent, though it is currently controlled. ED Course as of 02/03/251749 Marnie February 03, 2025 0846 Hemoglobin: 12.8 1007 Seen by ENT. We will touch base with OB as will ENT to discuss procedure to remove pyogenic granuloma. 1025 Discussed patient with the [place]. [place] [phone]. Will have ENT reach out. 1029 Connected ENT with MFM. 1100 ENT and MFM discussed patient, who will have outpatient intervention tomorrow. Patient appropriate for discharge at this time. All patient questions answered to the best of my ability. 1136 Work note provided. Final Diagnoses: as of 02/03/251749 Epistaxis 33 Weeks Gestation (HCC) Hina Menon M.D. Resident 02/03/251749 * Gabrielle Lagos, R.N. - 02/03/2025 5:52 AM CDT Pt presents for concern of nose bleed out of L nostril that began around 0300 and has not stopped since. Pt states she has had nosebleeds more frequently lately. Normally pt states she can get the blood under control within 15 min. Pt tried using Afrin this evening without much relief. Pt does haveknown polyp on L side of nose. Has been seen by ENT previously. Bleeding is controlled with clamp in place. Of note, pt is also 33 wks . Denies any concerns regarding . Pt endorses normal movement. Gabrielle Lagos R.N. 02/03/25 0559 Gabrielle Lagos R.N. 02/03/25 0600 documented in this encounter Plan of Treatment Upcoming Encounters Date Type Department Care Team (Late st Contact Info) Description 04/11/2025 10:15 AM CDT Office Visit Department of Otorhinolaryngology in [place], [place] [address] [place] [phone] Kwame Pugh M.D. [address] [place] [phone] Scheduled Orders Name Type Priority Associated Diagnoses Orde r Schedule Miscellaneous FBC Procedures OB Routine 33 Weeks Gestation (HCC) Expected: 02/04/2025, Expires: 05/06/2026 documented as of this encounter Procedures Procedure Name Priority Date/Time Associated Diagnosis Comments CBC WITH DIFFERENTIAL, B STAT 02/03/2025 6:05 AM CDT BASIC METABOLIC PANEL, S/P STAT 02/03/2025 6:05 AM CDT documented in this encounter Results * (ABNORMAL) Basic Metabolic Panel (02/03/2025 6:05 AM CDT) Potassium, P 3.9 3.6 - 5.2 mmol/L 02/03/2025 6:24 AM CDT ST[facility] Sodium, P 137 135 - 145 mmol/L 02/03/2025 6:24 AM CDT ST[facility] Chloride, P 105 98 - 107 mmol/L 02/03/2025 6:24 AM CDT ST[facility] Bicarbonate, P 20(L) 22 - 29 mmol/L 02/03/2025 6:24 AM CDT ST[facility] Anion Gap, P 12 7 - 15 02/03/2025 6:24 AM CDT [facility] BUN (Blood Urea Nitrogen), P 9 6 - 21 mg/dL 02/03/2025 6:24 AM CDT ST[facility] Creatinine 0.48(L) 0.59 - 1.04 mg/dL 02/03/2025 6:24 AM CDT [facility] Estimated GFR (eGFR) >90 >=60 mL/min/BSA 02/03/2025 6:24 AM CDT ST[facility] Comment: Estimated GFR calculated using the 2020 CKD_EPI creatinine equation. Calcium, Total, P 8.9 8.6 - 10.0 mg/dL 02/03/2025 6:24 AM CDT ST[facility] Glucose, P 130 70 - 140 mg/dL 02/03/2025 6:24 AM CDT ST[facility] Blood (Blood, Venous) 02/03/2025 6:05 AM CDT 02/03/2025 6:09 AM CDT New Guevara M.D. LAB [place] [address], [facility] [address] [place] [address] * (ABNORMAL) CBC with Differential, Blood (02/03/2025 6:05 AM CDT) Hemoglobin 12.8 11.6 - 15.0 g/dL 02/03/2025 6:11 AM CDT [facility] Hematocrit 38.3 35.5 - 44.9 % 02/03/2025 6:11 AM CDT [facility] Erythrocytes 4.35 3.92 - 5.13 x10(12)/L 02/03/2025 6:11 AM CDT [facility] MCV 88.0 78.2 - 97.9 fL 02/03/2025 6:11 AM CDT [facility] RBC Distrib Width 12.7 12.2 - 16.1 % 02/03/2025 6:11 AM CDT [facility] Platelet Count 247 157 - 371 x10(9)/L 02/03/2025 6:11 AM CDT [facility] Leukocytes 12.1(H) 3.4 - 9.6 x10(9)/L 02/03/2025 6:11 AM CDT [facility] Neutrophils 8.25(H) 1.56 - 6.45 x10(9)/L 02/03/2025 6:11 AM CDT [facility] Lymphocytes 2.69 0.95 - 3.07 x10(9)/L 02/03/2025 6:11 AM CDT [facility] Monocytes 0.98(H) 0.26 - 0.81 x10(9)/L 02/03/2025 6:11 AM CDT [facility] Eosinophils 0.09 0.03 - 0.48 x10(9)/L 02/03/2025 6:11 AM CDT [facility] Basophils 0.07 0.01 - 0.08 x10(9)/L 02/03/2025 6:11 AM CDT [facility] Blood (Blood, Venous) 02/03/2025 6:05 AM CDT 02/03/2025 6:09 AM CDT New Guevara M.D. LAB BLOOD ADD-ON Final Resul t [facility] [address] [place] [address], [facility] STMA [facility] [address] [place] [address] [facility] [address] [place] [address] documented in this encounter Visit Diagnoses Diagnosis Epistaxis- Primary 33 Weeks Gestation (HCC) documented in this encounter Administered Medications Inactive Administered Medications - up to 3 most recent administrations Medication Order MAR Action Action Date Dose Rate Site oxymetazoline 0.05 % nasal spray 2 spray (Afrin) 2 spray, each nostril, Once, On Marnie 02/03/25 at 0847, For 1 dose, Do not use for more than 3 days. Given 02/03/2025 8:49 AM CDT 2 sprays documented in this encounter Active and Recently Administered Medications Times are shown in CDT. Scheduled Medication Order 02/01/2025 02/02/2025 02/03/2025 oxymetazoline 0.05 % nasal spray 2 spray (Afrin) (COMPLETED) 2 spray, each nostril, Once, On Marnie 02/03/25 at 0847, For 1 dose, Do not use for more than 3 days. 0849 (Given - Provid er: Nai Hwang R.N.) documented in this encounter Care Teams Wire Spinner Relationship Specialty Start Date End Date None Reported, Pcp PCP - General Family Medicine 02/03/25 documented as of this encounter
--- OUTSIDE RECORDS SUMMARY | 2025-02-04 06:11 | XMS_ITS | Encounter Summary ---
Author Organization [facility] Address [address] [place] [address] Care Team Providers Care Edi Programmer Analyst Name Role Phone None Reported, Pcp Primary Care Provider Unavail able Reason for Referral * Outpatient (Routine) - Closed Specialty Diagnoses / Procedures Referred By Contac t Referred To Contact Diagnoses 33 Weeks Gestation (HCC) Procedures Miscellaneous FBC Procedures Jaclyn Lynch M.D. [address] [place] [phone] Phone: tel: fax: [facility] Referral ID Status Reason Start Date Expiration Date Visits Re quested Visits Authorized [id number] Closed 02/03/2025 05/06/2026 1 1 Reason for Visit * Reason Comments Other NST prior to procedu re today * Auth/Cert (Routine) Specialty Diagnoses / Procedures Referred By Contac t Referred To Contact Diagnoses Mass Nose Mass Nose [J34.89] Procedures MI EXCISN/DEST INTNASAL LESN INT APPR Left nasal cavity mass excision Kwame Pugh M.D. [address] [place] [phone] Phone: tel: fax: Referral ID Status Reason Start Date Expiration Date Visits Re quested Visits Authorized [id number] 1 1 Encounter Details Date Type Department Care Team (Latest Contact Info) Description 02/04/2025 6:11 AM CDT - 02/04/2025 6:50 AM CDT Hospital Encounter [facility], [facility], [facility], Third Floor [address] [place] [address] Josef Nichols M.D., Ph.D. 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 sodium chloride ([place]) 0.65 % nasal sprayIndications: Epistaxis,Lesion Intranasal Administer 1 spray into each nostril 4 (four) times a day. 11/30/2024 sodium chloride-sodium bicarbonate (Neilmed Sinus Rinse Complete) nasal rinseIndications: Epistaxis,Lesion Intranasal Administer 1 Application into each nostril 2 (two) times a day. 11/30/2024 documented as of this encounter Procedure Notes * Hina Shine R.N. - 02/04/2025 6:50 AM CDTAssociated Order(s): NONSTRESS TEST - ROBB SUBJECTIVE Sweta Pierre, a at 32w4d with an Estimated Date of Delivery: 03/28/25, was seen for a nonstress test. OBJECTIVE Nonstress test findings: Reason for NST: Other Other Reason for NST: NST prior to procedure at [facility] Baseline Rate (BR): 140 bpm Variability: Moderate Acceleration Pattern: 15x15 Deceleration Pattern: None Acoustic Stimulator: No Contractions: Not present Nonstress Test Interpretation: Reactive Duration of NST (minutes): >20 Blood Pressure: 113/73 Heart Rate: 94 ASSESSMENT / PLAN Patient is dismissed to home. To [facility] for procedure. Will return after for another NST Hina Shine R.N. Cosigned by Josef Nichols M.D., Ph.D. at 02/07/2025 8:31 PM CDT Associated attestation - Josef Nichols M.D., Ph.D. - 02/07/2025 8:31 PM CDT An NST was performed for the following indication: Pre/Post surgical. I have reviewed the NST and Iinterpret the tracing as Reactive with a baseline of 135 bpm. Patient is remaining in triage statusfor further evaluation. documented in this encounter Plan of Treatment Upcoming Encounters Date Type Department Care Team (Late st Contact Info) Description 04/11/2025 10:15 AM CDT Office Visit Department of Otorhinolaryngology in [place], [place] [address] [place] [address] Kwame Pugh M.D. [address] [place] [phone] Scheduled Orders Name Type Priority Associated Diagnoses Orde r Schedule Miscellaneous FBC Procedures OB Routine 33 Weeks Gestation (HCC) Once for 1 Occurrences starting 02/04/2025 until 02/04/2025 documented as of this encounter Procedures Procedure Name Priority Date/Time Associated Diagnosis Comments NONSTRESS TEST - ROBB Routine 02/04/2025 6:50 AM CDT documented in this encounter Results * nonstress test - robb (02/04/2025 6:50 AM CDT) Narrative Josef Nichols M.D., Ph.D. - 02/04/2025 6:50 AM CDT Josef Nichols M.D., Ph.D. 02/07/2025 8:31 PM SUBJECTIVE Sweta Pierre, a at 32w4d with an Estimated Date of Delivery: 03/28/25, was seen for a nonstress test. OBJECTIVE Nonstress test findings: Reason for NST: Other Other Reason for NST: NST prior to procedure at [facility] Baseline Rate (BR): 140 bpm Variability: Moderate Acceleration Pattern: 15x15 Deceleration Pattern: None Acoustic Stimulator: No Contractions: Not present Nonstress Test Interpretation: Reactive Duration of NST (minutes): >20 Blood Pressure: 113/73 Heart Rate: 94 ASSESSMENT / PLAN Patient is dismissed to home. To [facility] for procedure. Will return after for another NST Hina Shine R.N. us Josef Nichols M.D., Ph.D. OB GYNE ORDERABLES F inal Result documented in this encounter Visit Diagnoses Diagnosis 33 Weeks Gestation (HCC) documented in this encounter Care Teams Edi Programmer Analyst Relationship Specialty Start Date End Date None Reported, Pcp PCP - General Family Medicine 02/03/25 documented as of this encounter
--- OUTSIDE RECORDS SUMMARY | 2025-02-04 07:04 | XMS_ITS | Encounter Summary ---
Author Organization [facility] Address [address] [place] [id number] Care Team Providers [facility] Name Role Phone None Reported, Pcp Primary Care Provider Unavail able Reason for Visit * Auth/Cert (Routine) Specialty Diagnoses / Procedures Referred By Contac t Referred To Contact Diagnoses Mass Nose Mass Nose [J34.89] Procedures UT EXCISN/DEST INTNASAL LESN INT APPR Left nasal cavity mass excision Kwame Pugh M.D. [address] [place] [phone] Phone: tel: fax: Referral ID Status Reason Start Date Expiration Date Visits Re quested Visits Authorized [id number] 1 1 Encounter Details Date Type Department Care Team (Latest Contact Info) Description 02/04/2025 7:04 AM CDT - 02/04/2025 2:19 PM CDT Hospital Encounter [facility] OR [address] [place] [phone] Kwame Pugh M.D. [address] [place] [phone] Mass Nose Discharge Disposition: Home or Self Care Social [...] PM CDT Legal Sex Female 1:22 PM SOLE [employer]KER Gender Identity Female 01/24/2025 1:12 PM CDT Sexual Orientation Straight 01/24/2025 1: 12 PM CDT documented as of this encounter Last Filed Vital Signs Vital Sign Reading Time Taken Comments Blood Pressure 102/56 02/04/2025 2:00 PM CDT Pulse 105 02/04/2025 2:00 PM CDT Temperature 36.7 C (98.1 F) 02/04/2025 12:57 PM CDT Respiratory Rate 20 02/04/2025 2:00 PM CDT Oxygen Saturation 93% 02/04/2025 2:00 PM CDT Inhaled Oxygen Concentration - - Weight 82.5 kg (181 lb 14.8 oz) 02/04/2025 7:33 AM CDT Height 152.4 cm (5') 02/04/2025 7:33 AM CDT Body Mass Index 35.53 02/04/2025 7:33 AM CDT documented in this encounter Medications at Time [...] 1 tablet by mouth daily. sodium chloride ([place]) 0.65 % nasal sprayIndications: Epistaxis,Lesion Intranasal Administer 1 spray into each nostril 4 (four) times a day. 11/30/2024 sodium chloride-sodium bicarbonate (Neilmed Sinus Rinse Complete) nasal rinseIndications: Epistaxis,Lesion Intranasal Administer 1 Application into each nostril 2 (two) times a day. 11/30/2024 documented as of this encounter OR Notes * Op Note - Kwame Pugh M.D. - 02/04/2025 11:48 AM CDT Pre-op Diagnosis Mass Nose Post-op Diagnosis Mass Nose Musical Therapist A first cook actively participated and was necessary for one or more of the following: opening, exposure and visualization, maintaining hemostasis, wound closure resulting in its safe and expeditious completion. Findings Complications Operative Note Narrative .PATIENT NAME: Sweta Pierre DATE OF SURGERY: 02/04/25 ATTENDING SURGEON: Kwame Pugh MD HR ANALYST SURGEON(S): Jackie Dean MD PRE-OPERATIVE DIAGNOSIS Left nasal mass POST-OPERATIVE DIAGNOSIS: Same PROCEDURES PERFORMED: 1. Excision of left nasal mass ANESTHESIA: GETA. EBL: <10 cc. SPECIMENS: left nasal mass CULTURES: none COMPLICATIONS: None. 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 We had initially planned for observation but she had recurrent epistaxis and option of surgical excision was made. Maternal- Medicine was consulted who agreed with the timing of surgery. heart monitoring was used both before and after the procedure with reassuring results. Discussed the risks and benefits which include bleeding and septal perforation as well as need for postoperative care. She was given opportunity to ask questionsand elected to proceed. Written consent was obtained. FINDINGS: Vascular mass arising from the left superior septum which was fully excised. This was consistent with a pyogenic granuloma and sent for permanent pathology. DESCRIPTION OF PROCEDURE PROCEDURE: After informed consent was given, the patient was placed under satisfactory anesthesia by the anesthesiologist. A formal timeout was completed and the patient identified. The bed was pulled away fromthe anesthesia cart, and the patient was prepped and draped in the usual fashion. The nose was examined with a 0 degree endoscope. The nose was then topically decongested with pledgets moistened withafrin only. The nose was then re-examined and the response to decongestion was noted. There was a pedunculated mass eminating from the anterior superior septum. This stalk was dissectedaway from underlying normal mucosa via bipolar cautery. The bulk of the mass was resected in this manner and the mass was sent for permanent pathology. A small focus of abnormal tissue remained at the septal attachment point. This was dissected away from normal mucosa using a caudal elevator, and the rest of the mass was removed with bipolar cautery. Hemostasis was achieved via topical surgiflow and with cautery. Valsalva was performed. A nasopore was placed at the end of the case. All counts were correct and an orogastric tube was passed. The patient was returned to the anesthesiologist for awakening. The patient was brought to the PACU in excellent condition, there were no intraoperative complications. Lyle Pugh MD Rhinology and Skull Base Surgery [place], [place] documented in this encounter Miscellaneous Notes * Pre-Procedure Note - Jackie Dean M.D. - 02/03/2025 7:08 PM CDT OTORHINOLARYNGOLOGY - HEAD AND NECK SURGERY BRIEFING NOTE Sweat Pierre is a 34 y.o. female who is 33 weeks for whom we plan to form excision of left sided nasal mass d/t persistent epistaxis. ANESTHESIA - ETT: taped off the the left with tape on the lower lip (no tape on upper lip please) - Fio2: per anesthesia - Sedation: TIVA sinus protocol; aim for MAP of 65 - Paralysis: per anesthesia - Pressors: per anesthesia - Abx: ancef - Decadron: 10 mg unless contraindication with - Pt position: supine; please place BP cuff on any limb other than right arm (surgeons lean on right arm during case) - Arm tuck: left arm out - Bed position: 90 degree turn with left arm adjacent to anesthesia machine - Estimated Time: 1-1.5 hours NURSING - Rodrigez: none - Patient postop status/disposition: Outpatient - Meds: 1:1000 epi pledgets - Special equipment: sinus campbell, suction cautery - Closure: posicep x unopened - Other concerns: going monitoring prior to surgery. Padmini [facility] [phone] at end ofcase for post op monitoring Jackie Dean M.D. Dr. Pugh Service [phone] documented in this encounter Plan of Treatment Upcoming Encounters Date Type Department Care Team (Late st Contact Info) Description 04/11/2025 10:15 AM CDT Office Visit Department of Otorhinolaryngology in [place], [place] [address] [place] [phone] Kwame Pugh M.D. [address] [place] [phone] documented as of this encounter Procedures Procedure Name Priority Date/Time Associated Diagnosis Comments ADULT OXYGEN THERAPY Routine 02/04/2025 12:53 PM CDT SURGICAL PATHOLOGY, FROZEN LAB Routine 02/04/2025 12:14 PM CDT Mass Nose EXCISION LESION NOSE 02/04/2025 11:01 AM CDT Mass Nose Case Notes VP COMMUNICATIONS at 7:11- Alone GLUCOSE POCT, B Routine 02/04/2025 10:47 AM CDT documented in this encounter Results * Surgical Pathology, Frozen Lab (02/04/2025 12:14 PM CDT) 02/09/2025 9:54 AM CDT STMA Report electronically signed by Nick abad M.D. I verify that I have examined all relevant slides/materi als for the specimen(s) and rendered or confirmed the diagnosis. 02/09/2025 9:54 AM CDT STMA Gross Description A. Received fresh labeled left nasal mass is a 1.2 x 1.1 x 0.8 cm polypoid portion of pink mucosal tissue. All submitted for permanent sections. Grossed by Daniel Knight, PA([facility]). 02/09/2025 9:54 AM CDT STMA Block Summary A Left nasal mass A1 Nasal mass 02/09/2025 9:54 AM CDT STMA Interpretation FINAL DIAGNOSIS A. 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 Digital imaging was used in the diagnostic assessment of this case. 02/09/2025 9:54 AM CDT STMA Tissue (Nose) 02/04/2025 12: 14 PM CDT us Kwame Puhg M.D. LAB SURG PATH ORDERABLES Final Result Performing Organization Address City/[facility]/ZIP Co de Phone Number [facility] [address] [place] [address], [facility] STMA 200 [facility] [address] [place] [address] * Glucose, POCT (02/04/2025 10:47 AM CDT) Glucose, POCT, B 110 70 - 140 mg/dL 02/04/2025 10:56 AM CDT PCLX Blood 02/04/2025 10:4 7 AM CDT 02/04/2025 10:57 AM CDT us Unknown Provider LAB POCT ORDERABLES-MANUAL Davina l Result Performing Organization Address City/[facility]/ZIP Co de Phone Number [facility] [address] [place] [address], [facility] PCLX [facility] [address] [place] [address] documented in this encounter Visit Diagnoses Diagnosis Mass Nose documented in this encounter Administered Medications Inactive Administered Medications - up to 3 most recent administrations Medication Order MAR Action Action Date Dose Rate Site acetaminophen injection 1,000 mg 1,000 mg, intravenous, at 400 mL/hr, Administer over 15 Minutes, Once as needed, other, If patient has not received in previous 6 hours, Starting on Fri02/04/25 at 1253, For 1 dose, PACU (only), Oral unless RASS less than -1 or nausea/vomiting. Do not use if given in last 6 hours, Restriction Criteria (Pharmacy will review and approve if criteria met): Unable to take or tolerate medications administered via the enteral route or orally (not just NPO) New Bag 02/04/2025 12:57 PM CDT 1,000 mg 400 mL/hr chlorhexidine 0.12 % mouthwash 15 mL (Peridex) 15 mL, swish & spit, Once as needed, Chlorhexidine mouthwash (Peridex) should be given if patient did not complete oral care, if completion is greater than 4 hours prior to surgery or procedure start time and they do not have the opportunity to brush their teeth now (or at this time)., Starting on Fri02/04/25 at 1026, For 1 dose, Pre-Op, Instruct patient to swish entire content of Chlorhexidine 0.12% mouthwash (Peridex) 15 mL cup for 30 seconds, then spit, swish & spit. If patient is at risk for aspiration, apply Chlorhexidine 0.12% mouthwash to a swab and gently swab the patient's teeth and gums. Ensure swab is not oversaturated. EPINEPHrine injection 30 mg (Adrenalin) 30 mg, topical, Once in surgery, other, OR use only - soak pledget prior to nasal administration, Starting on Fri02/04/25 at 0919, For 1 dose, Intra-Op fentaNYL injection 25 mcg (Sublimaze) 25 mcg, intravenous, Every 2 min PRN, moderate pain or score 4-6 of 10, severe pain or score 7-10 of 10, Starting on Fri02/04/25 at 1253, PACU (only), Up to maximum total dose of 200 mcg granisetron (PF) injection 1 mg (KytriL) 1 mg, intravenous, Once as needed, nausea, vomiting, Starting on Fri02/04/25 at 1253, For 1 dose, PACU (only), If patient does not respond to ondansetron or haloperidol. (Order of antiemetic administration - ondansetron then haloperidol or droperidol then granisetron) Given 02/04/2025 12:57 PM CDT 1 mg metoclopramide injection 10 mg (Reglan) 10 mg, intravenous, Once, On Fri02/04/25 at 1045, For 1 dose, Pre-Op Given 02/04/2025 10:48 AM CDT 10 mg metoprolol tablet 12.5 mg (Lopressor) 12.5 mg, oral, Once as needed, if patient did not take their last scheduled dose of beta ally prior to arrival, Starting on Fri02/04/25 at 1026, For 1 dose, Pre-Op, Do not give if patient does not take scheduled beta blockers, if patient is receiving intravenous vasopressors or inotropes, if heart rate is less than 50 beats per minute, if systolic blood pressure is less than 90 mmHg or if diastolic blood pressure is less than 40 mmHg, or if patient has an allergy to metoprolol. metoprolol tablet 12.5 mg (Lopressor) 12.5 mg, oral, Once as needed, if patient did not take their last scheduled dose of beta ally prior to arrival, Starting on Fri02/04/25 at 1026, For 1 dose, Pre-Op, Do not give if patient does not take scheduled beta blockers, if patient is receiving intravenous vasopressors or inotropes, if heart rate is less than 50 beats per minute, if systolic blood pressure is less than 90 mmHg or if diastolic blood pressure is less than 40 mmHg, or if patient has an allergy to metoprolol. sodium chloride 0.9 % injection 10 mL 10 mL, intravenous, As needed, line care, Starting on Fri02/04/25 at 1026, Pre-Op, Peripheral Intravenous Catheter and Rapid Infusion Catheter, prior to blood sampling, post blood transfusion or post blood sampling sodium chloride 0.9 % injection 10 mL 10 mL, intravenous, As needed, line care, Starting on Fri02/04/25 at 1026, Pre-Op, Peripheral Intravenous Catheter and Rapid Infusion Catheter, prior to blood sampling, post blood transfusion or post blood sampling sodium chloride 0.9 % injection 3 mL 3 mL, intravenous, As needed, line care, Starting on Fri02/04/25 at 1026, Pre-Op, Prior to and following infusion and between multiple consecutive infusions: sodium chloride 0.9 % injection sodium chloride 0.9 % injection 3 mL 3 mL, intravenous, Every 12 hours scheduled, First dose on Fri02/04/25 at 2100, Pre-Op, Peripheral Intravenous Catheter and Rapid Infusion Catheter, when no infusion to maintain patency sodium chloride 0.9 % injection 3 mL 3 mL, intravenous, As needed, line care, Starting on Fri02/04/25 at 1026, Pre-Op, Prior to and following infusion and between multiple consecutive infusions: sodium chloride 0.9 % injection sodium chloride 0.9 % injection 3 mL 3 mL, intravenous, Every 12 hours scheduled, First dose on Fri02/04/25 at 2100, Pre-Op, Peripheral Intravenous Catheter and Rapid Infusion Catheter, when no infusion to maintain patency sodium citrate-citric acid solution 30 mL (Cytra-2) 30 mL, oral, Once, On Fri02/04/25 at 1045, For 1 dose, Pre-Op Given 02/04/2025 10:39 AM CDT 30 mL documented in this encounter Active and Recently Administered Medications Times are shown in CDT. Scheduled Medication Order 02/02/2025 02/03/2025 02/04/2025 ceFAZolin injection 2,000 mg (Ancef) (COMPLETED) 2,000 mg (rounded from 2,100 mg = 25 mg/kg 84 kg), intravenous, Once, On Fri02/04/25 at 0945, For 1 dose, Intra-Op, Administer within 1 hour prior to surgical incision For immediate IV push administration, reconstitute vial per IVAG or package insert instructions. See IVAG for administration guidelines., Drug Monitoring Program: Pharmacist to adjust medication dosing based on indication and drug clearance factors., Indications: Prophylaxis, surgical 1144 (Given - Provid er: Bozena Dempsey, CARLOS, FIBRE OPTIC CABLE SPLICER, DNAP) metoclopramide injection 10 mg (Reglan) (COMPLETED) 10 mg, intravenous, Once, On Fri02/04/25 at 1045, For 1 dose, Pre-Op 1048 (Given - Provid er: Mahsa Red R.N.) sodium chloride 0.9 % injection 3 mL 3 mL, intravenous, Every 12 hours scheduled, First dose on Fri02/04/25 at 2100, Pre-Op, Peripheral Intravenous Catheter and Rapid Infusion Catheter, when no infusion to maintain patency sodium chloride 0.9 % injection 3 mL 3 mL, intravenous, Every 12 hours scheduled, First dose on Fri02/04/25 at 2100, Pre-Op, Peripheral Intravenous Catheter and Rapid Infusion Catheter, when no infusion to maintain patency sodium citrate-citric acid solution 30 mL (Cytra-2) (COMPLETED) 30 mL, oral, Once, On Fri02/04/25 at 1045, For 1 dose, Pre-Op 1039 (Given - Provid er: Mahsa Red RPilyN.) PRN Medication Order 02/02/2025 02/03/2025 02/04/2025 acetaminophen injection 1,000 mg (COMPLETED)(Linked Group 1) 1,000 mg, intravenous, at 400 mL/hr, Administer over 15 Minutes, Once as needed, other, If patient has not received in previous 6 hours, Starting on Fri02/04/25 at 1253, For 1 dose, PACU (only), Oral unless RASS less than -1 or nausea/vomiting. Do not use if given in last 6 hours, Restriction Criteria (Pharmacy will review and approve if criteria met): Unable to take or tolerate medications administered via the enteral route or orally (not just NPO) 1257 (New Bag - Prov ider: Christine Staley RPilyN.) chlorhexidine 0.12 % mouthwash 15 mL (Peridex) 15 mL, swish & spit, Once as needed, Chlorhexidine mouthwash (Peridex) should be given if patient did not complete oral care, if completion is greater than 4 hours prior to surgery or procedure start time and they do not have the opportunity to brush their teeth now (or at this time)., Starting on Fri02/04/25 at 1026, For 1 dose, Pre-Op, Instruct patient to swish entire content of Chlorhexidine 0.12% mouthwash (Peridex) 15 mL cup for 30 seconds, then spit, swish & spit. If patient is at risk for aspiration, apply Chlorhexidine 0.12% mouthwash to a swab and gently swab the patient's teeth and gums. Ensure swab is not oversaturated. EPINEPHrine injection 30 mg (Adrenalin) 30 mg, topical, Once in surgery, other, OR use only - soak pledget prior to nasal administration, Starting on Fri02/04/25 at 0919, For 1 dose, Intra-Op fentaNYL injection 25 mcg (Sublimaze) 25 mcg, intravenous, Every 2 min PRN, moderate pain or score 4-6 of 10, severe pain or score 7-10 of 10, Starting on Fri02/04/25 at 1253, PACU (only), Up to maximum total dose of 200 mcg granisetron (PF) injection 1 mg (KytriL) (COMPLETED) 1 mg, intravenous, Once as needed, nausea, vomiting, Starting on Fri02/04/25 at 1253, For 1 dose, PACU (only), If patient does not respond to ondansetron or haloperidol. (Order of antiemetic administration - ondansetron then haloperidol or droperidol then granisetron) 1257 (Given - Provid er: Christine Staley R.N.) metoprolol tablet 12.5 mg (Lopressor) 12.5 mg, oral, Once as needed, if patient did not take their last scheduled dose of beta ally prior to arrival, Starting on Fri02/04/25 at 1026, For 1 dose, Pre-Op, Do not give if patient does not take scheduled beta blockers, if patient is receiving intravenous vasopressors or inotropes, if heart rate is less than 50 beats per minute, if systolic blood pressure is less than 90 mmHg or if diastolic blood pressure is less than 40 mmHg, or if patient has an allergy to metoprolol. metoprolol tablet 12.5 mg (Lopressor) 12.5 mg, oral, Once as needed, if patient did not take their last scheduled dose of beta ally prior to arrival, Starting on Fri02/04/25 at 1026, For 1 dose, Pre-Op, Do not give if patient does not take scheduled beta blockers, if patient is receiving intravenous vasopressors or inotropes, if heart rate is less than 50 beats per minute, if systolic blood pressure is less than 90 mmHg or if diastolic blood pressure is less than 40 mmHg, or if patient has an allergy to metoprolol. oxymetazoline 0.05 % nasal spray (Afrin) (CANCELED) As needed, Starting on Fri02/04/25 at 1205, Intra-Op 1205 (Given - Provid er: Jackie Dean M.D. - Comment: soaked on cottonoids) sodium chloride 0.9 % injection 10 mL 10 mL, intravenous, As needed, line care, Starting on Fri02/04/25 at 1026, Pre-Op, Peripheral Intravenous Catheter and Rapid Infusion Catheter, prior to blood sampling, post blood transfusion or post blood sampling sodium chloride 0.9 % injection 10 mL 10 mL, intravenous, As needed, line care, Starting on Fri02/04/25 at 1026, Pre-Op, Peripheral Intravenous Catheter and Rapid Infusion Catheter, prior to blood sampling, post blood transfusion or post blood sampling sodium chloride 0.9 % injection 3 mL 3 mL, intravenous, As needed, line care, Starting on Fri02/04/25 at 1026, Pre-Op, Prior to and following infusion and between multiple consecutive infusions: sodium chloride 0.9 % injection sodium chloride 0.9 % injection 3 mL 3 mL, intravenous, As needed, line care, Starting on Fri02/04/25 at 1026, Pre-Op, Prior to and following infusion and between multiple consecutive infusions: sodium chloride 0.9 % injection thrombin (recombinant) topical solution (Recothrom) (CANCELED) As needed, Starting on Fri02/04/25 at 1228, Intra-Op 1228 (Given - Provid er: Jackie Dean M.D. - Comment: mixed with 7 cc NaCl and gel foam powder) Linked Groups Order Group 1: acetaminophen tablet 1,000 mg (TylenoL) (COMPLETED) 1,000 mg, oral, Once as needed, other, If patient has not received in the previous 6 hours, Starting on Fri02/04/25 at 1253, For 1 dose, PACU (only), Oral unless RASS less than -1 or nausea/vomiting. Do not use if given in last 6 hours Or acetaminophen injection 1,000 mg (COMPLETED)Jump to med 1,000 mg, intravenous, at 400 mL/hr, Administer over 15 Minutes, Once as needed, other, If patient has not received in previous 6 hours, Starting on Fri02/04/25 at 1253, For 1 dose, PACU (only), Oral unless RASS less than -1 or nausea/vomiting. Do not use if given in last 6 hours, Restriction Criteria (Pharmacy will review and approve if criteria met): Unable to take or tolerate medications administered via the enteral route or orally (not just NPO) documented in this encounter Care Teams Health Center Associate Relationship Specialty Start Date End Date None Reported, Pcp PCP - General Family Medicine 02/03/25 documented as of this encounter
--- OUTSIDE RECORDS SUMMARY | 2025-02-04 10:39 | XMS_ITS | Encounter Summary ---
Author Organization [facility] Address [address] [place] [address] Care Team Providers Care Life Skills Trainer Name Role Phone None Reported, Pcp Primary Care Provider Unavail able Reason for Visit * Auth/Cert (Routine) Specialty Diagnoses / Procedures Referred By Contalana t Referred To Contact Diagnoses Mass Nose Mass Nose [J34.89] Procedures NC EXCISN/DEST INTNASAL LESN INT APPR Left nasal cavity mass excision Kwame Pugh M.D. [address] [place] [phone] Phone: tel: fax: Referral ID Status Reason Start Date Expiration Date Visits Re quested Visits Authorized [id number] 1 1 Encounter Details Date Type Department Care Team ([facility] st Contact Info) Description 02/04/2025 10:39 AM CDT - 02/04/2025 12:34 PM CDT Surgery RST ROMB MAIN OR [address] [place] [phone] Kwame Pugh M.D. 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 sodium chloride ([place]) 0.65 % nasal sprayIndications: Epistaxis,Lesion Intranasal Administer [...] Diagnosis Mass Nose Post-op Diagnosis Mass Nose Psychiatric Technician Assistant A hospital clinic assistant actively participated and was necessary for one or more of the following: opening, exposure and visualization, maintaining hemostasis, wound closure resulting in its safe and expeditious completion. Findings Complications Operative Note Narrative .PATIENT NAME: Sweta Pierre DATE OF SURGERY: 02/04/25 ATTENDING SURGEON: Kwame Pugh MD DESTATICIZER FEEDER SURGEON(S): Jackie Dean MD PRE-OPERATIVE DIAGNOSIS Left [...] Pugh MD Rhinology and Skull Base Surgery [place], [place] documented in this encounter Miscellaneous Notes * Pre-Procedure Note - Jackie Dean M.D. - 02/03/2025 7:08 PM CDT OTORHINOLARYNGOLOGY - HEAD AND NECK SURGERY BRIEFING NOTE Sweta Pierre is a 34 y.o. female [...] concerns: going monitoring prior to surgery. [facility] [phone] at end ofcase for post op monitoring Jackie Dean M.D. Dr. Pugh Service [phone] documented in this encounter Plan of Treatment Upcoming Encounters Date Type Department Care Team (Late st Contact Info) Description 04/11/2025 10:15 AM CDT Office Visit Department of Otorhinolaryngology in [place], [place] [address] [place] [phone] Kwame Pugh M.D. [address] [place] [phone] documented as of this encounter Procedures Procedure Name Priority Date/Time Associated Diagnosis Comments ADULT OXYGEN THERAPY Routine 02/04/2025 12:53 PM CDT SURGICAL PATHOLOGY, [facility] LAB Routine 02/04/2025 12:14 PM CDT Mass Nose EXCISION LESION NOSE 02/04/2025 11:01 AM CDT Mass Nose Case Notes DIE FINISHER FORGING at 7:11- Alone GLUCOSE POCT, B Routine [...] All submitted for permanent sections. Grossed by Oswaldo KnightH.S, PA([facility]). 02/09/2025 9:54 AM CDT STMA Block Summary [...] 02/04/2025 12: 14 PM CDT us Kwame Pugh M.D. LAB SURG PATH ORDERABLES Final Result Performing Organization Address City/[facility]/ZIP Co de Phone Number [facility] 200 [place] [address], [facility] STMA [address] [address] * Glucose, POCT (02/04/2025 10:47 AM CDT) Pathologist [facility] Glucose, POCT, B 110 70 - 140 mg/dL 02/04/2025 10:56 AM CDT PCLX Blood 02/04/2025 10:4 7 AM CDT 02/04/2025 10:57 AM CDT us Unknown Provider LAB POCT ORDERABLES-MANUAL Davina l Result Performing Organization Address City/[facility]/ZIP Co de Phone Number POC [facility] 200 [place] [address], [facility] PCLX [facility] POC 200 [place] [address] documented in this encounter Visit Diagnoses Diagnosis Mass Nose Mass Nose documented in this encounter Administered [...] metoprolol. oxymetazoline 0.05 % nasal spray (Afrin) As needed, Starting on Fri02/04/25 at 1205, Intra-Op Given 02/04/2025 12:05 PM CDT 1 Application Bilateral Nares sodium chloride 0.9 % injection 10 mL [...] Given 02/04/2025 10:39 AM CDT 30 mL thrombin (recombinant) topical solution (Recothrom) As needed, Starting on Fri02/04/25 at 1228, Intra-Op Given 02/04/2025 12:28 PM CDT 2,500 Units Left Nare documented in this encounter Active and Recently [...] 1144 (Given - Provid er: Bozena Dempsey, CUSTOMER ENGINEER, CLEANING ASSOCIATE, DNAP) metoclopramide injection 10 mg (Reglan) (COMPLETED) [...] 1039 (Given - Provid er: Mahsa Red RPilyNPily) PRN Medication Order 02/02/2025 02/03/2025 02/04/2025 acetaminophen [...] NPO) documented in this encounter Care Teams Life Skills Trainer Relationship Specialty Start Date End Date None Reported, Pcp PCP - General Family Medicine 02/03/25 documented as of this encounter
--- OUTSIDE RECORDS SUMMARY | 2025-02-04 11:16 | XMS_ITS | Encounter Summary ---
Author Organization [facility] Address [address] [place] [address] Care Team Providers Care Director Of Investigations Name Role Phone None Reported, Pcp Primary Care Provider Unavail able Reason for Visit * Auth/Cert (Routine) Specialty Diagnoses / Procedures Referred By Contac t Referred To Contact Diagnoses Mass Nose Mass Nose [J34.89] Procedures RI EXCISN/DEST INTNASAL LESN INT APPR Left nasal cavity mass excision Kwame Pugh M.D. [address] [place] [phone] Phone: tel: fax: Referral ID Status Reason Start Date Expiration Date Visits Re quested Visits Authorized [id number] 1 1 Encounter Details Date Type Department Care Team ([facility] st Contact Info) Description 02/04/2025 11:16 AM CDT Anesthesia Event RST ROMB MAIN OR [address] [place] [phone] Mendoza Carballo Jr., M.D. [address] [place] [phone] Rosetta Hernandez M.D. [address] [place] [phone] Anesthesia Record Procedure Summary Procedure Name Responsible Anesthesiologist Anesthesia Start Time Anesthesia Stop Time Left nasal cavity mass excision (Left) Mendoza Carballo Jr., M.D. 02/04/25 1116 02/04/25 1253 Events Date Time Event Comment 02/04/2025 1116 An Start Machine/Equipme nt Checked Infection Precautions Followed Procedure/Site Verified NPO Status Verified Supine Standard ASA Monitors Applied 1130 An Induction 1134 An Intubation 1137 Turnover to Proceduralist 1145 Quick Note Recruitment simeon aths given 1148 Proc Start 1227 Proc Fin 1234 Turnover to ANE Staff 1234 Extubation/Airway Removed 1234 Airway Removal Criteria Met 1241 an stop data 1253 An End I completed my handoff to the receiving staff during which we 1. Identified the patient 2. Identified the responsible provider 3. Reviewed the pertinent medical history 4. Discussed the surgical course 5. Reviewed intra-op anesthesia management and issues during anesthesia 6. Set expectations for post-procedure period 7. Allowed opportunity for questions and acknowledgement of understanding. Meds Name Total fentanyl injection 50 mcg/mL 50 mcg lidocaine 2% (mg) injection 60 mg succinylcholine 20 mg/mL injection 140 m g phenylephrine 100 mcg/mL injection 300 m cg propofol 10 mg/mL infusion 470.25 mg propofol 10 mg/mL injection 150 mg ceFAZolin injection 2,000 mg (Ancef) 2 g remifentaniL 20 mcg/mL in NaCl 0.9% 50 m L infusion (Ultiva) 1.02 mg phenylephrine infusion 80 mcg/mL in NaCl 0.9% 250 mL (premix/CNR) 0.96 mg Lactated Ringers Free Drip 750 mL * Agents No agents on file. * Blood No blood administrations on file. Lines, Drains, and Airways Type Details Placement Removal Wound 02/04/25; N; Incisio n; Nose; Left; excision nasal cavity mass; 4cm nasopore 02/04/25 0000 by Letty Ness R.N. Peripheral IV Placement Date: 01/08 ; Placement Time: 1049; Catheter Size: 20 G; Orientation: Posterior, Right; Location: Hand; Site Prep: Chlorhexidine (Preferred); Technique: Anatomical landmarks; Inserted by: JOSIAH; Insertion Attempts: 1; Removal Date: 02/04/25; Removal Time: 1420 02/04/25 1049 by Adilia Mason 02/04/25 1420 by Christine Staley, R.N. ETT Placement Date: 01/08 ; Placement Time: 1134 (created via procedure documentation); Mask Ventilation: Easy mask; Technique: Video laryngoscopy; Type: Standard ETT; Single Lumen Tube Size: 6.5 mm; Cuffed: Yes; Location: Oral; Grade View: Grade 2A; Insertion Attempts: 1; Placement Verification: Bilateral breath sounds, Positive ETCO2, Symmetrical chest wall movement; Removal Date: 02/04/25; Removal Time: 1234 02/04/25 1134 by Bozena Dempsey APRN, CRNA, DNAP 02/04/25 1234 by Bozena Dempsey APRN, CRNA, DNAP documented in this encounter Social History Tobacco Use Types Packs/Day Years [...] PM CDT 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 Responsible Provider: Mendoza Carballo Jr., M.D. Anesthesia Type: general ASA Status: 2 Anesthesia Type: general Last vitals Vitals Value Taken Time BP Temp Pulse 117 02/04/25 12:55 Resp 22 02/04/25 12:55 SpO2 91 % 02/04/25 12:55 Vitals shown include unfiled device data. Please reference Vitals flowsheet for most recent vital signs. Anesthesia Post Evaluation Patient Disposition: dismissal Cardiovascular status: hemodynamics (HR & BP) acceptable Respiratory status: patent airway with spontaneous effort Temperature: normothermic Oxygen requirements: room air Level of consciousness: awake Pain score: pain adequately controlled and/or at baseline Post Op nausea/vomiting: none Hydration status: euvolemic Notable Events No notable events documented. * Anesthesia Procedure Notes - Bozena Dempsey APRN, CRNA, DNAP - 02/04/2025 11:45 AM CDTAssociated Order(s): Airway Airway Date/Time: 02/04/2025 11:34 AM Performed by: Bozena Dempsey APRN, CRNA, DNAP Authorized by: Mendoza Carballo Jr., M.D. Patient location during procedure: OR / Procedure Area PROCEDURE DETAILS: Mask difficulty assessment: easy mask Final airway type: video laryngoscope Laryngeal Manipulation: no Final best view of glottic structures - Cormack/Lehane Score: grade 2A ETT location: oral VL device: glide scope Howard scope blade size: 3 Tube size: 6.5 ETT distance at teeth/gum: 21 Oral tube type: standard ETT Cuffed: yes Leak Test Performed: no Number of attempt to successful placement: 1 Airway confirmation: bilateral breath sounds, positive ETCO2 and bilateral chest rise Other previous techniques attempted: none PRE PROCEDURE DETAILS: Pre evaluation for airway management: procedure Urgency: elective Preop assessment of probable difficulty: no difficulty anticipated Preoxygenation: bag valve mask SEDATION / ANESTHESIA Anesthesia method: anesthesia POST PROCEDURE DETAILS: Procedure outcome: successful Notable Events: no complications * Anesthesia Preprocedure Evaluation - Mendoza Carballo Jr., M.D. - 02/04/2025 10:45 AM CDT Preprocedure Anesthesia & H&P Assessment Procedure Summary Date/Time: 02/04/25 1039 Procedure: Left nasal cavity mass excision (Left) Diagnosis: Mass Nose [J34.89] Pre-op diagnosis: Mass Nose [J34.89] Location: RM OR 207 ROMB 01 570 / [facility] in [place], [place] Providers: Kwame Pugh M.D. Pertinent components of the patient's history including current problem list, medical history, surgical history, family history, social history, medications and allergies were reviewed. Present illness and pre-op diagnosis were confirmed. The planned surgery / procedure was verified with the patient / legal guardian. The patient's general health condition remains unchanged RELEVANT COMORBID CONDITIONS No relevant active problems OBJECTIVE PHYSICAL EXAMINATION Airway (HEENT) Mallampati: III TM Distance: >3 FB Neck ROM: Full Mouth Opening: >3 cm Cardiovascular Rhythm: Regular Rate: Normal Cardiovascular Assessment: cardiovascular normal Functional Capacity: >4 METS Pulmonary Pulmonary Assessment: Clear General / Constitutional Constitutional Assessment: Overweight General State of Health:: calm ASSESSMENT / PLAN ANESTHESIA PLAN ASA: 2 Anesthesia Plan: general Patient seen and allergies reviewed, anesthesia plan and risks discussed directly with patient /legal guardian or through an public interviewer. Risks/Benefits/Alternatives of Blood transfusion discussed with patient / legal guardian, includingan opportunity to ask questions and/or decline some or all transfusion therapies. The patient / legal guardian consented to the use of all blood products, as deemed medically necessary Approval to Proceed: approved for anesthesia bicitra metoclopramide pre fasting glu heart tones pre obtained documented in this encounter Plan of Treatment Upcoming Encounters Date Type Department Care Team (Late st Contact Info) Description 04/11/2025 10:15 AM CDT Office Visit Department of Otorhinolaryngology in [place], [place] [address] [place] [phone] Kwame Pugh M.D. [address] [place] [phone] documented as of this encounter Procedures Procedure Name Priority Date/Time Associated Diagnosis Comments LDA ANE ENDOTRACHEAL AIRWAY Routine 02/04/2025 11:34 AM CDT documented in this encounter Results * LDA ANE ENDOTRACHEAL AIRWAY (02/04/2025 11:34 AM CDT) Narrative Bozena Dempsey APRN, CRNA, DNAP - 02/04/2025 11:34 AM CDT Bozena Dempsey APRN, CRNA, DNAP 02/04/2025 11:48 AM Airway Date/Time: 02/04/2025 11:34 AM Performed by: Bozena Dempsey APRN, CRNA DNARafiq Authorized by: Mendoza Carballo Jr., M.D. Patient location during procedure: OR / Procedure Area PROCEDURE DETAILS: Mask difficulty assessment: easy mask Final airway type: video laryngoscope Laryngeal Manipulation: no Final best view of glottic structures - Cormack/Lehane Score: grade 2A ETT location: oral VL device: glide scope Howard scope blade size: 3 Tube size: 6.5 ETT distance at teeth/gum: 21 Oral tube type: standard ETT Cuffed: yes Leak Test Performed: no Number of attempt to successful placement: 1 Airway confirmation: bilateral breath sounds, positive ETCO2 and bilateral chest rise Other previous techniques attempted: none PRE PROCEDURE DETAILS: Pre evaluation for airway management: procedure Urgency: elective Preop assessment of probable difficulty: no difficulty anticipated Preoxygenation: bag valve mask SEDATION / ANESTHESIA Anesthesia method: anesthesia POST PROCEDURE DETAILS: Procedure outcome: successful Notable Events: no complications Mendoza Carballo Jr., M.D. ANESTHESIA ORDERABLES Final Result documented in this encounter Visit Diagnoses Not on filedocumented in this encounter Administered Medications Inactive Administered Medications - up to 3 most recent administrations Medication Order MAR Action Action Date Dose Rate Site ceFAZolin injection 2,000 mg (Ancef) 2,000 mg (rounded from 2,100 mg = [...] indication and drug clearance factors., Indications: Prophylaxis, surgicalIndications:Proph ylaxis, surgical Given 02/04/2025 11:44 AM CDT 2 g fentaNYL injection (Sublimaze) intravenous, As needed, Starting on Fri02/04/25 at 1130, Anesthesia Intra-op Given 02/04/2025 11:30 AM CDT 50 mcg Lactated Ringer's intravenous, Continuous Infusion: Per Instructions PRN, Starting on Fri02/04/25 at 1123, Anesthesia Intra-op New Bag 02/04/2025 11:23 AM CDT lidocaine (PF) (cardiac) injection intravenous, As needed, Starting on Fri02/04/25 at 1130, Anesthesia Intra-op Given 02/04/2025 11:30 AM CDT 60 mg phenylephrine 80 mcg/mL in NaCl 0.9% 250 mL infusion intravenous, Continuous Infusion: Per Instructions PRN, Starting on Fri02/04/25 at 1158, Anesthesia Intra-op New Bag 02/04/2025 11:58 AM CDT 0.4 mcg/kg/min 24.75 mL/hr phenylephrine injection intravenous, As needed, Starting on Fri02/04/25 at 1158, Anesthesia Intra-op Given 02/04/2025 12:21 PM CDT 100 mcg Given 02/04/2025 11:58 AM CDT 200 mcg propofol 10 mg/mL infusion (Diprivan) intravenous, Continuous Infusion: Per Instructions PRN, Starting on Fri02/04/25 at 1130, Anesthesia Intra-op New Bag 02/04/2025 11:30 AM CDT 100 mcg/kg/min 49.5 mL/hr propofoL injection (Diprivan) intravenous, As needed, Starting on Fri02/04/25 at 1130, Anesthesia Intra-op Given 02/04/2025 11:30 AM CDT 150 mg remifentaniL 20 mcg/mL in NaCl 0.9% 50 mL infusion (Ultiva) intravenous, Continuous Infusion: Per Instructions PRN, Starting on Fri02/04/25 at 1130, Anesthesia Intra-op New Bag 02/04/2025 11:30 AM CDT 0.2 mcg/kg/min 49.5 mL/hr succinylcholine (PF) injection (Anectine) intravenous, As needed, Starting on Fri02/04/25 at 1131, Anesthesia Intra-op Given 02/04/2025 11:31 AM CDT 140 mg documented in this encounter Care Teams Director Of Investigations Relationship Specialty Start Date End Date None Reported, Pcp PCP - General Family Medicine 02/03/25 documented as of this encounter
--- OUTSIDE RECORDS SUMMARY | 2025-02-04 14:55 | XMS_ITS | Encounter Summary ---
Author Organization [facility] Address [address] [place] [address] Care Team Providers Care Mill Crane Operator Name Role Phone None Reported, Pcp Primary Care Provider Unavail able Reason for Visit * Auth/Cert (Routine) Specialty Diagnoses / Procedures Referred By Liz t Referred To Contact Diagnoses Mass Nose Mass Nose [J34.89] Procedures [place] EXCISN/DEST INTNASAL LESN INT APPR Left nasal cavity mass excision Kwame Pugh M.D. [address] [place] [address] Phone: tel: fax: Referral ID Status Reason Start Date Expiration Date Visits Re quested Visits Authorized [id number] 1 1 Encounter Details Date Type Department Care Team (Latest Contact Info) Description 02/04/2025 2:55 PM CDT - 02/04/2025 3:35 PM CDT Hospital Encounter [facility], Third Floor [address] [place] [address] Paip Whitt M.D. 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 sodium chloride ([place]) 0.65 % nasal sprayIndications: Epistaxis,Lesion Intranasal Administer 1 spray into each nostril 4 (four) times a day. 11/30/2024 sodium chloride-sodium bicarbonate (Neilmed Sinus Rinse Complete) nasal rinseIndications: Epistaxis,Lesion Intranasal Administer 1 Application into each nostril 2 (two) times a day. 11/30/2024 documented as of this encounter Procedure Notes * Isatu Kahn RPilyN. - 02/04/2025 3:35 PM CDTAssociated Order(s): NONSTRESS TEST - ROBB SUBJECTIVE Sweta Pierre, a at 32 w 4 d with an Estimated Date of Delivery: 03/28/25, was seen for a nonstress test. OBJECTIVE Nonstress test findings: Reason for NST: Pre/Post surgical Baseline Rate (BR): 135 bpm Variability: Moderate Acceleration Pattern: 15x15 Deceleration Pattern: None Acoustic Stimulator: No Contractions: Not present Nonstress Test Interpretation: Reactive Duration of NST (minutes): > 20 ASSESSMENT / PLAN Patient is dismissed to home. Manny Kahn R.N. Cosigned by Papi Whitt M.D. at 02/04/2025 4:02 PM CDT Associated attestation - Papi Whitt M.D. - 02/04/2025 4:02 PM CDT OB Charge Machine Operator An NST was performed for the following indication: 32+ weeks gestation; s/p excision of nasal mass.I have reviewed the NST and I interpret the tracing as Reactive with a baseline of 135 bpm. Patientis discharged to home. Papi Whitt MD documented in this encounter Plan of Treatment Upcoming Encounters Date Type Department Care Team (Late st Contact Info) Description 04/11/2025 10:15 AM CDT Office Visit Department of Otorhinolaryngology in [place], [place] [address] [place] [phone] Kwame Pugh M.D. [address] [place] [address] documented as of this encounter Procedures Procedure Name Priority Date/Time Associated Diagnosis Comments NONSTRESS TEST - ROBB Routine 02/04/2025 3:35 PM CDT documented in this encounter Results * nonstress test - robb (02/04/2025 3:35 PM CDT) Narrative Paip Whitt M.D. - 02/04/2025 3:35 PM CDT Papi Whitt M.D. 02/04/2025 4:02 PM SUBJECTIVE Sweta Pierre, a at 32 w 4 d with an Estimated Date of Delivery: 03/28/25, was seen for a nonstress test. OBJECTIVE Nonstress test findings: Reason for NST: Pre/Post surgical Baseline Rate (BR): 135 bpm Variability: Moderate Acceleration Pattern: 15x15 Deceleration Pattern: None Acoustic Stimulator: No Contractions: Not present Nonstress Test Interpretation: Reactive Duration of NST (minutes): > 20 ASSESSMENT / PLAN Patient is dismissed to home. Manny Kahn R.N. Papi Whitt M.D. OB GYNE ORDERABLES Final Resu lt documented in this encounter Visit Diagnoses Diagnosis 32 Weeks Gestation (HCC) [Z3A.32]- Primary documented in this encounter Care Teams Mill Crane Operator Relationship Specialty Start Date End Date None Reported, Pcp PCP - General Family Medicine 02/03/25 documented as of this encounter
--- OUTSIDE RECORDS SUMMARY | 2025-02-21 11:30 | XMS_ITS | Encounter Summary ---
Author Organization [facility] Address [address] [place] [phone] Care Team Providers Care Chain Testing Machine Operator Name Role Phone None Reported, Pcp Primary Care Provider Unavail able Reason for Visit * Outpatient (Routine) - Closed Specialty Diagnoses / Procedures Referred By Liz t Referred To Contact Otorhinolaryngology Kwame Pugh M.D. [address] [place] [phone] Phone: tel: fax: [facility] Referral ID Status Reason Start Date Expiration Date Visits Re quested Visits Authorized [id number] Closed 02/08/2025 08/10/2026 1 1 Encounter Details Date Type Department Care Team (Latest Contact Info) Description 02/21/2025 11:30 AM CDT Office Visit Department of Otorhinolaryngology in [place], [place] [address] [place] [phone] Kwame Pugh M.D. [address] [place] [phone] Granuloma Pyogenic (Primary Dx) Social History Tobacco Use Types Packs/Day Years Used Date Smoking Tobacco: Never Smokeless Tobacco: Never Alcohol Use Standard Drinks/Week Comments Not Currently 0 (1 standard drink = 0.6 oz pure alcohol) Once every couple months for social gathering [facility] Utilities Answer Date Recorded In the past 12 months has [employer], gas, oil, or water Browsy threatened to shut off services in your home? No 02/20/2025 Hunger Vital Sign Answer Date Recorded Within the past 12 months, y ou worried that your food would run out before you got the money to buy more. Never true 02/21/20 25 Within the past 12 months, t he food you bought just didn't last and you didn't have money to get more. Never true 02/20/2025 PRAPARE - Transportation Answer Date Re corded In the past 12 months, has l ack of transportation kept you from medical appointments or from getting medications? No 02/06 In the past 12 months, has l ack of transportation kept you from meetings, work, or from getting things needed for daily living? No 02/20/2025 Housing Stability Answer Date Recorded What is your living situation today? 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 - 02/21/2025 11:30 AM CDT SUBJECTIVE HISTORY OF PRESENT ILLNESS Sweta Pierre is a 34 y.o. female, who comes to the clinic today for a postoperative visit. Surgical history: resection of pyogenic granuloma in OR Was struck by her youngest child in the nose, thankfully no obvious change in nasal appearance, minimal bleeding. Otherwise doing well. OBJECTIVE PHYSICAL EXAMINATION General: Patient doing well overall and is in no apparent distress. Psychiatric: Pleasant affect and answers questions appropriately. Head and Face: Symmetric facial movements. Eyes: Pupils equal, round, reactive. Extraocular movements intact, without gaze restrictions or nystagmus. No epiphora. Nose: Anterior rhinoscopy revealed small crust anteriorly at excision site. Septum intact. Pathology 02.04.25 A. 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 ASSESSMENT / PLAN Pyogenic granuloma s/p excision Doing well post op week 2, small crusting over excision site. Suggest vasoline to anterior septum while healing. No further sinonasal precautions, has follow up with me in April - can cancel prior if doing well. She will call with any issues in the meantime. Lyle Pugh MD Rhinology and Skull Base Surgery [place], [place] Cosigned by Kwame Pugh M.D. at 02/21/2025 12:26 PM CDT documented in this encounter Plan of Treatment Upcoming Encounters Date Type Department Care Team (Late st Contact Info) Description 04/11/2025 10:15 AM CDT Office Visit Department of Otorhinolaryngology in [place], [place] [address] [place] [phone] Kwame Pugh M.D. [address] [place] [phone] documented as of this encounter Visit Diagnoses Diagnosis Granuloma Pyogenic- Primary documented in this encounter Care Teams Chain Testing Machine Operator Relationship Specialty Start Date End Date None Reported, Pcp PCP - General Family Medicine 02/03/25 documented as of this encounter
--- OUTSIDE RECORDS SUMMARY | 2025-02-21 18:20 | XMS_ITS | Encounter Summary ---
Author Organization [facility] Address [address] [place] [address] Care Team Providers Care Furrier Designer Name Role Phone None Reported, Pcp Primary Care Provider Unavail able Encounter Details Date Type Department Care Team (Latest Contact Info) Description 02/21/2025 6:20 PM CDT Ancillary Procedure Department of Otorhinolaryngology Social History Tobacco Use Types Packs/Day Years Used Date Smoking Tobacco: Never Smokeless Tobacco: Never Alcohol Use Standard Drinks/Week Comments Not Currently 0 (1 standard drink = 0.6 oz pure alcohol) Once every couple months for social gathering [facility] Utilities Answer Date Recorded In the past 12 months has e electric, gas, oil, or water [employer] threatened to shut off services in your [...] your living situation today? 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 [address] [place] [phone] documented as of this encounter Procedures Procedure Name Priority Date/Time Associated Diagnosis Comments OTORHINOLARYNGOLOGY IMAGE EXAM Routine 02/21/2025 11:35 AM CDT documented in this encounter Results * Nasal Endoscopy-Otorhinolaryngology Image Exam (02/21/2025 11:35 AM CDT) Narrative [facility] - 02/21/2025 11:35 AM CDT This order has been created and auto-finalized to support the import of images acquired without order. The clinical documentation to support these images can be found on the encounter that produced images. us Provider Not In System IMG NON RAD IMAGING PROCE DURES Final Result [facility] NA documented in this encounter Visit Diagnoses Not on filedocumented in this encounter Care Teams Furrier Designer Relationship Specialty Start Date End Date None Reported, Pcp PCP - General Family Medicine 02/03/25 documented as of this encounter
--- NOTE | 2025-02-25 07:15 | CRLHL7_ITS ---
For Patients: As a result of the Century Cures Act, medical imaging exams and procedure reports are released immediately into your electronic medical record. You may view this report before your referring provider. If you have questions, please contact your health care provider. OB ULTRASOUND LMP: 06/21/2024. GABE by LMP: 03/28/2025. GA: 35 w, 4 d. Single. INDICATION: GDMA1. TECHNIQUE: Real time grayscale imaging of the fetus was performed. Transabdominal. CERVIX: Not visualized. POSITIONING: Vertex. AMNIOTIC FLUID: 4.3 cm. SDP (N: greater than 2 x 1 cm) PLACENTA: Technique: Transabdominal. PLACENTA POSITION: Fundal, posterior. DOPPLER: heart rate: 134 bpm. BIOMETRY: BPD: 8.3 cm. 33 w, 3 d, 7 percent. HC: 31.3 cm. 35 w, 0 d, 10 percent. AC: 33.5 cm. 37 w, 3 d, 95 percent. FL: 6.4 cm. 32 w, 6 d, <3 percent. FL/AC ratio: 18.96 percent. HC/AC ratio: 0.93. EFW: 2715 g. Weight: 6 lbs, 0 oz. age by this US: 34 w, 5 d. GABE by this US: 04/03/2025. Percentile by GABE: 49.4 percent. IMPRESSION: 1. Sonographic gestational age 34 weeks 5 days and sonographic due date 04/03/2025. Sonographic age is 6 days behind the clinical age. 2. Estimated weight 49th percentile. Abdominal circumference 95th percentile. Femur length less than 3rd percentile. Nick Cabrera M.D. Diagnostic Radiologist [employer] [email or web address] NAFISA/atul pollard/Dictated by: Nick Cabrera MD @ 02/25/2025 8:24:00 AM (Electronically Signed)
--- OUTSIDE RECORDS SUMMARY | 2025-02-26 00:59 | XMS_ITS | Encounter Summary ---
Author Organization [facility] Address [address] [place] [address] Care Team Providers Care Pbx Mechanic Name Role Phone None Reported, Pcp Primary Care Provider Unavail able Reason for Referral * Outpatient (Routine) - Closed Specialty Diagnoses / Procedures Referred By Contalana t Referred To Contact Otorhinolaryngology Kwame Pugh M.D. [address] [place] [phone] Phone: tel: fax: [facility] Referral ID Status Reason Start Date Expiration Date Visits Re quested Visits Authorized [id number] Closed 02/08/2025 08/10/2026 1 1 Encounter Details Date Type Department Care Team (Late st Contact Info) Description 02/08/2025 Orders Only Department of Otorhinolaryngology in [place], [place] [address] [place] [phone] Lianne Varela R.N. [address] [place] [phone] Social History Tobacco Use Types Packs/Day Years Used Date Smoking Tobacco: Never Smokeless Tobacco: Never Alcohol Use Standard Drinks/Week Comments Never 0 (1 standard drink = 0.6 oz pur e alcohol) [facility] Utilities Answer Date Recorded In the past 12 months has e electric, gas, oil, or water company threatened to shut off services in your [...] your living situation today? 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 [address] [place] [phone] Scheduled Referrals Name Type Priority Associated Diagnoses Order Schedule Otorhinolaryngology Post Op (clinic) Outpatient Referral Routine Expected: 02/22/2025, Expires: 05/11/2026 documented as of this encounter Visit Diagnoses Not on filedocumented in this encounter Care Teams Pbx Mechanic Relationship Specialty Start Date End Date None Reported, Pcp PCP - General Family Medicine 02/03/25 documented as of this encounter
--- OUTSIDE RECORDS SUMMARY | 2025-02-26 00:59 | XMS_ITS | Encounter Summary ---
Author Organization [facility] Address [address] [place] [address] Care Team Providers Care Bottoming Room Inspector Name Role Phone None Reported, Pcp Primary Care Provider Unavail able Reason for Visit * Reason Onset Date Comments Order Request 02/07/2025 Encounter Details Date Type Department Care Team (Latest Contact Info) Description 02/07/2025 Clinical Communication Department of Otorhinolaryngology in [place], [place] [address] [place] [phone] Kwame Pugh M.D. 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 [address] [place] [phone] documented as of this encounter Visit Diagnoses Not on filedocumented in this encounter Care Teams Bottoming Room Inspector Relationship Specialty Start Date End Date None Reported, Pcp PCP - General Family Medicine 02/03/25 documented as of this encounter
--- OUTSIDE RECORDS SUMMARY | 2025-02-26 00:59 | XMS_ITS | Encounter Summary ---
Author Organization [facility] Address [address] [place] [address] Care Team Providers Care Safety Leader Name Role Phone None Reported, Pcp Primary Care Provider Unavail able Encounter Details Date Type Department Care Team (Latest Contact Info) Description 02/09/2025 Results Follow-Up Department of Otorhinolaryngology in [place], [place] [address] [place] [phone] Kwame Pugh M.D. 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 [address] [place] [phone] documented as of this encounter Visit Diagnoses Not on filedocumented in this encounter Care Teams Safety Leader Relationship Specialty Start Date End Date None Reported, Pcp PCP - General Family Medicine 02/03/25 documented as of this encounter
--- OUTSIDE RECORDS SUMMARY | 2025-02-26 00:59 | XMS_ITS | Encounter Summary ---
Author Organization [facility] Address [address] [place] [address] Care Team Providers Care Semiconductor Engineer Name Role Phone None Reported, Pcp Primary Care Provider Unavail able Encounter Details Date Type Department Care Team (Latest Contact Info) Description 02/16/2025 Clinical Communication Department of Otorhinolaryngology in [place], [place] [address] [place] [phone] Kwame Pugh M.D. 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 - 02/16/2025 1:56 PM CDT PLAN The following information was provided: Called patient and she states that it has stopped bleeding completely. If she dabs her nose there is slight blood-tinge to her mucus. Discussed that unless it is bleeding heavily or she is concerned,we can wait to see her on Friday as scheduled. Patient agreeable to plan, she will call if anythingchanges. Information/Education: patient/caller able to teach back The following references were used: provider Dr. Pugh * Telephone Encounter - Michelle Delgado - 02/16/2025 12:32 PM CDT The patient calls. Her little lucia head-butted her on the nose about 20 minutes ago. She felt a little shift/snap with impact and her rubbing it softly and noted a small amount of dripping of blood. It's not a heavy bleed, but is catching a few spots. No pain with the hit. She is scheduled for PO appt on 02/21/2025. She requests a call back at [phone] Pugh: 02/04/2025 Mass Excision, Nasal Mass Cavity Mass Excision) documented in this encounter Plan of Treatment Upcoming Encounters Date Type Department Care Team (Late st Contact Info) Description 04/11/2025 10:15 AM CDT Office Visit Department of Otorhinolaryngology in [place], [place] [address] [place] [phone] Kwame Pugh M.D. [address] [place] [phone] documented as of this encounter Visit Diagnoses Not on filedocumented in this encounter Care Teams Semiconductor Engineer Relationship Specialty Start Date End Date None Reported, Pcp PCP - General Family Medicine 02/03/25 documented as of this encounter
--- OUTSIDE RECORDS SUMMARY | 2025-02-26 00:59 | XMS_ITS | Clinical Summary ---
Author Organization [facility] Address [address] [place] [address] Care Team Providers Care University Counselor Name Role Phone None Reported, Pcp Primary Care Provider Unavail able Source Comments Patient records contain information from all sites at [facility]. For routine questions regarding patient records, call [phone] during business hours, M-F 8:00 AM - 5:00 PM Central Time. Record requests for emergency care only can be directed to [phone] at any time.[facility] Allergies No known active allergies Medications PNV no.95/ferrous fum/folic ac ( ORAL) Take 1 tablet by mouth daily. Active oxymetazoline (Afrin) 0.05 % nasal sprayIndications :Epistaxis,Lesio n Intranasal Administer 2 sprays into each nostril 2 (two) times a day as needed (epistaxis). May apply on tissue to help stop bleeds. Avoid use more than 5 days. 5 Active sodium chloride ([place]) 0.65 % nasal sprayIndications :Epistaxis,Lesio n Intranasal Administer 1 spray into each nostril 4 (four) times a day. 5 Active sodium chloride-sodium bicarbonate (Neilmed Sinus Rinse Complete) nasal rinseIndications :Epistaxis,Lesio n Intranasal Administer 1 Application into each nostril 2 (two) times a day. 5 Active FreeStyle Lite Strips 4 test daily. 5 Active freestyle 28 gauge lancets 4 (four) times a day. 5 Active multivitamin-iro n tablet Take 1 tablet by mouth daily. Active oxyCODONE (Roxicodone) 5 mg immediate release tabletIndication s:Acute Pain Take 1 tablet (5 mg total) by mouth every 3 (three) hours as needed for pain Indication: Acute Pain. 5 tablet 5 Active Active Problems Estimated Date of Delivery Comme nts Yes 03/28/2025 Date entered savanna or to episode creation No known active problems Encounters Date Type Department Care Team Description 02/21/2025 6:20 PM CDT Ancillary Procedure Department of Otorhinolaryngology 02/21/2025 11:30 AM CDT Office Visit Department of Otorhinolaryngology in [place], [place] [address] [place] [address] Kwame Pugh M.D. Granuloma Pyogenic (Primary Dx) 02/16/2025 Clinical Communication Department of Otorhinolaryngology in [place], [place] [address] [place] [address] Kwame Pugh M.D. 02/09/2025 Results Follow-Up Department of Otorhinolaryngology in [place], [place] [address] [place] [address] Kwame Pugh M.D. Surgical Pathology, Frozen Lab 02/08/2025 Orders Only Department of Otorhinolaryngology in [place], [place] [address] [place] [address] Lianne Varela R.N. 02/07/2025 Clinical Communication Department of Otorhinolaryngology in [place], [place] [address] [place] [address] Kwame Pugh M.D. Order Request 02/04/2025 2:55 PM CDT - 02/04/2025 3:35 PM CDT Hospital Encounter [facility], [facility], Third Floor [address] [place] [address] Papi Whitt M.D. 32 Weeks Gestation (HCC) [Z3A.32] (Primary Dx) Discharge Disposition: Home or Self Care 02/04/2025 11:16 AM CDT Anesthesia Event [facility] [address] [place] [phone] Mendoza Carballo Jr., M.D. Harrison, Tracy E, M.D. 02/04/2025 10:39 AM CDT - 02/04/2025 12:34 PM CDT Surgery [facility] [address] [place] [phone] Kwame Pugh M.D. Left nasal cavity mass excision 02/04/2025 7:04 AM CDT - 02/04/2025 2:19 PM CDT Hospital Encounter [facility] [address] [place] [phone] Kwame Pugh M.D. Mass Nose Discharge Disposition: Home or Self Care 02/04/2025 6:11 AM CDT - 02/04/2025 6:50 AM CDT Hospital Encounter [facility], Third Floor [address] [place] [address] Josef Nichols M.D., Ph.D. 33 Weeks Gestation (HCC) Discharge Disposition: Home or Self Care 02/03/2025 5:50 AM CDT - 02/03/2025 11:28 AM CDT Emergency [facility] Emergency Department [address] [place] [phone] New Guevara M.D. Epistaxis (Primary Dx); 33 Weeks Gestation (HCC) Discharge Disposition: Home or Self Care 02/03/2025 Clinical Communication [facility], Third Floor [address] [place] [address] Blue Mcmillan R.N., RNC-OB 02/02/2025 Clinical Communication Department of Otorhinolaryngology in [place], [place] [address] [place] [address] Kwame Pugh M.D. Epistaxis (Nose Bleed) 01/24/2025 1:25 PM CDT Ancillary Procedure Department of Otorhinolaryngology 01/24/2025 1:00 PM CDT Comprehensive Visit Department of Otorhinolaryngology in [place], [place] [address] [place] [address] Kwame Pugh M.D. Epistaxis; Lesion Intranasal; Granuloma Pyogenic 01/19/2025 3:30 PM CDT Clinical Communication Virtual Review in [place], [place] [address] [place] [address] 12/15/2024 1:00 PM CDT Office Visit Department of Otorhinolaryngology in [place], [place] [address] [place] [address] Chantal Ding P.A.-C. Granuloma Pyogenic (Primary Dx); Epistaxis; Lesion Intranasal 12/01/2024 Clinical Communication Department of Otorhinolaryngology in [address] [address] Basil Ponce M.D. 11/30/2024 12:40 PM CDT Ancillary Procedure Department of Otorhinolaryngology 11/30/2024 11:50 AM CDT Ancillary Procedure Department of Otorhinolaryngology 11/30/2024 11:30 AM CDT Comprehensive Visit Department of Otorhinolaryngology in [address] [address] Basil Ponce M.D. Epistaxis (Primary Dx); Lesion Intranasal Discharge Disposition: Home or Self Care 11/30/2024 4:28 AM CDT - 11/30/2024 6:18 AM CDT [facility] [address] [place] [phone] Basil Mauricio P.A.-C., P.A. Epistaxis (Primary Dx) Discharge Disposition: Home or Self Care 11/30/2024 1:15 AM CDT Ancillary Procedure Department of Otorhinolaryngology 11/30/2024 Clinical Communication Department of Otorhinolaryngology in [address] [address] Basil Ponce M.D. 11/30/2024 Clinical Communication Department of Otorhinolaryngology in [place], [place] JESUS [address] Basil Ponce M.D. Follow-up (ED follow up) from Last 3 Months Immunizations Immunization Administration Dates Next Due Tdap 03/25/2019 Social History Tobacco Use Types Packs/Day Years Used Date Smoking Tobacco: Never Smokeless Tobacco: Never Tobacco Cessation:Counseling Given: Not Answered Alcohol Use Standard Drinks/Week Comments Not Currently 0 (1 standard drink = 0.6 oz pure alcohol) Once every couple months for social gathering [facility] Utilities Answer Date Recorded In the past 12 months has th e electric, gas, oil, or water company threatened to shut off services in your home? No 02/20/2025 Hunger Vital Sign Answer Date Recorded Within the past 12 months, y ou worried that your food would run out before you got the money to buy more. Never true 02/21/20 Within the past 12 months, t he [...] your living situation today? 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 [address] [place] [phone] Health Maintenance Due Date Last Done Comments Cervical/Vaginal Cancer Screening 1991 HIV Screening 1991 Hepatitis C Screening 1991 Hepatitis B Vaccines (1 of 3 - 19+ 3-dose series) 2010 COVID-19 Vaccine ( - 2023- season) 2024 01/25/2021, 01/04/2021 Influenza Vaccine (#1) 2024 , 07/04/2022, 06/23/2018, Additional history exists Depression Screening (Annual PHQ-2) 09/08/2024 DTaP,Tdap,and Td Vaccines (6 - Td or Tdap) 01/21/2035 01/21/2025, 12/05/2023, 03/25/2019, Additional history exists Hepatitis B Screening Discontinued 12/24/2018 Tdap vaccine - (27-36 weeks) Completed 01/21/2025, 12/05/2023, 03/25/2019, Additional history exists HPV Vaccines Aged Out No longer eligi ble based on patient's age to complete this topic IPV Vaccines Aged Out No longer eligi ble based on patient's age to complete this topic Pneumococcal vaccine (0-49 years) Aged Out No longer eligible based on patient's age to complete this topic RSV vaccine - (32-36 weeks) or 60+ years (No Doses Required) Completed Procedures Procedure Name Priority Date/Time Associated Diagnosis Comments OTORHINOLARYNGOLOGY IMAGE EXAM Routine 02/21/2025 11:35 AM CDT NONSTRESS TEST - ALANIS Routine 02/04/2025 3:35 PM CDT ADULT OXYGEN THERAPY Routine 02/04/2025 12:53 PM CDT SURGICAL PATHOLOGY, [facility]EN LAB Routine 02/04/2025 12:14 PM CDT Mass Nose LDA ANE ENDOTRACHEAL AIRWAY Routine 02/04/2025 11:34 AM CDT EXCISION LESION NOSE 02/04/2025 11:01 AM CDT Mass Nose Case Notes BUSINESS 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 at 7:11- Alone GLUCOSE POCT, B Routine 02/04/2025 10:47 AM CDT NONSTRESS TEST - ALANIS Routine 02/04/2025 6:50 AM CDT BASIC METABOLIC PANEL, S/P STAT 02/03/2025 6:05 AM CDT CBC WITH DIFFERENTIAL, B STAT 025 6:05 AM CDT OTORHINOLARYNGOLOGY IMAGE EXAM Routine 01/24/2025 1:25 PM CDT OTORHINOLARYNGOLOGY IMAGE EXAM Routine 11/30/2024 12:40 PM CDT OTORHINOLARYNGOLOGY IMAGE EXAM Routine 11/30/2024 11:50 AM CDT EPISTAXIS MANAGEMENT Routine 11/30/2024 5:53 AM CDT OTORHINOLARYNGOLOGY IMAGE EXAM Routine 11/30/2024 1:15 AM CDT from Last 3 Months Results * Nasal Endoscopy-Otorhinolaryngology Image Exam (02/21/2025 11:35 AM CDT) Only the most recent of5 resultswithin the time period is included. Narrative IIMS - 02/21/2025 11:35 AM CDT This order has been created and auto-finalized to support the import of images acquired without order. The clinical documentation to support these images can be found on the encounter that produced images. us Provider Not In System IMG NON RAD IMAGING PROCE DURES Final Result IIUT NA * nonstress test - alanis (02/04/2025 3:35 PM CDT) Narrative Papi Whitt M.D. - 02/04/2025 3:35 PM CDT [...] M.D. OB GYNE ORDERABLES Final Resu lt * Surgical Pathology, Frozen Lab (02/04/2025 12:14 [...] for permanent sections. Grossed by Daniel Knight, BAR([facility]). 02/09/2025 9:54 AM CDT STMA Block Summary [...] PATH ORDERABLES Final Result Performing Organization Address City/State/[facility] Co de Phone Number [facility] [address] [place] [address], [facility] ST[facility] [address] [place] [address] * LDA ANE ENDOTRACHEAL AIRWAY (02/04/2025 11:34 [...] ETT location: oral VL device: glide scope [place] scope blade size: 3 Tube size: 6.5 [...] Procedure outcome: successful Notable Events: no complications us Mendoza Carballo Jr., M.D. ANESTHESIA ORDERABLES Final Result * Glucose, POCT (02/04/2025 10:47 AM CDT) Glucose, POCT, B 110 70 - 140 mg/dL 02/04/2025 10:56 AM CDT PCLX Blood 02/04/2025 10:4 7 AM CDT 02/04/2025 10:57 AM CDT us Unknown Provider LAB POCT ORDERABLES-MANUAL Davina l Result POC [facility] [address] [place] [address], [facility] P[facility] [address] [place] [address] * nonstress test - alanis (02/04/2025 6:50 AM CDT) Narrative Josef Nichols M.D., Ph.D. - 02/04/2025 6:50 AM CDT Josef Nichols M.D., Ph.D. 02/07/2025 8:31 PM SUBJECTIVE Sweta Pierre, a at 32w4d with an Estimated Date of Delivery: 03/28/25, was seen for a nonstress test. OBJECTIVE Nonstress test findings: Reason for NST: Other Other Reason for NST: NST prior to procedure at [facility] Baseline Rate (BR): 140 bpm Variability: Moderate Acceleration Pattern: 15x15 Deceleration Pattern: None Acoustic Stimulator: No Contractions: Not present Nonstress Test Interpretation: Reactive Duration of NST (minutes): >20 Blood Pressure: 113/73 Heart Rate: 94 ASSESSMENT / PLAN Patient is dismissed to home. To [facility] for procedure. Will return after for another NST Hina Shine R.N. Josef Nichols M.D., Ph.D. OB GYNE ORDERABLES F inal Result * (ABNORMAL) CBC with Differential, Blood (02/03/2025 [...] 6:05 AM CDT 02/03/2025 6:09 AM CDT us New Guevara M.D. LAB BLOOD ADD-ON Final Resul t [facility] [address] [place] [address], [facility] ST[facility] [address] [place] [address] [facility] [address] [place] [address] * (ABNORMAL) Basic Metabolic Panel (02/03/2025 6:05 [...] 6:05 AM CDT 02/03/2025 6:09 AM CDT us New Guevara M.D. LAB BLOOD ADD-ON Final Resul t [facility] [address] [place] [address], [facility] [address] [place] [address] * Epistaxis Management (11/30/2024 5:53 AM CDT) Narrative Basil Mauricio P.A.-C., P.A. - 11/30/2024 5:53 AM CDT Basil Mauricio P.A.-C., P.A. 11/30/2024 5:54 AM Epistaxis Management Performed by: Basil Mauricio P.A.-C., PFausto Authorized by: Basil Mauricio P.A.-C., P.APily PROCEDURE DETAILS Treatment method: nasal clamp and nasal balloon Treatment complexity: complex Subsequent visit: no CONSENT Consent obtained: verbal Consent given by: patient The benefits, risks and alternatives to the procedure and the potential need for sedation or anesthesia as well as the names, roles, and responsibilities of healthcare team members performing significant interventional tasks were discussed with the patient and/or decision maker. UNIV[employer]AL [employer]OL All relevant documentation and testing were reviewed and available. All required blood products, implants, devices and or special equipment were made available as applicable. Pre-procedure verification was conducted and the correct site was marked if required. A fire risk and smoke assessment were done as applicable. The procedural time-out to verify correct patient, correct side/site, and procedure was conducted prior to performing the procedure and confirmed in a procedural pause. PRE-PROCEDURE DETAILS Indications: nose bleed Treatment site: left septum SEDATION / ANESTHESIA Anesthesia method: none POST-PROCEDURE DETAILS Assessment: bleeding stopped Procedure completed successfully: yes Complications: no immediate complication Basil Mauricio P.A.-C., P.A. PROCEDURE/MINOR ACOSTA RGICAL ORDERABLES Final Result from Last 3 Months Insurance [place] [id number] [employer] Care Teams University Counselor Relationship Specialty Start Date End Date None Reported, Pcp PCP - General Family Medicine 02/03/25
--- OUTSIDE RECORDS SUMMARY | 2025-02-26 01:00 | XMS_ITS | Encounter Summary ---
Author Organization [facility] Address [address] [place] [id number] Care Team Providers Care Ordering Box Operator Name Role Phone None Reported, Pcp Primary Care Provider Unavail able Reason for Visit * Reason Onset Date Comments Epistaxis (Nose Bleed) 02/02/2025 Encounter Details Date Type Department Care Team (Latest Contact Info) Description 02/02/2025 Clinical Communication Department of Otorhinolaryngology in [place], [place] [address] [place] [phone] Kwame Pugh M.D. 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 Pugh and last night had one. It has mostly stopped but is a trickle with mucus and some blood. NOS. [facility] [phone]. documented in this encounter Plan of Treatment Upcoming Encounters Date Type Department Care Team (Late st Contact Info) Description 04/11/2025 10:15 AM CDT Office Visit Department of Otorhinolaryngology in [place], [place] [address] [place] [address] Kwame Pugh M.D. [address] [place] [address] documented as of this encounter Visit Diagnoses Not on filedocumented in this encounter Care Teams Ordering Box Operator Relationship Specialty Start Date End Date None Reported, Pcp PCP - General Family Medicine 02/03/25 documented as of this encounter
--- OUTSIDE RECORDS SUMMARY | 2025-02-26 01:00 | XMS_ITS | Clinical Summary ---
Author Organization [place] Address [address] [place] [address] Care Team Providers Care Application Integrator Name Role Phone Monika Blackman NP Primary Care Provider [phone] Encounters Date Type Department Care Team Description 12/24/2024 10:45 AM CDT Office Visit [facility] [address] [place] [address] Анна Vizcaino MD Nashif, Sereen, MD Obesity affecting , antepartum, unspecified obesity type (Primary Dx) 12/24/2024 9:51 AM CDT - 12/24/2024 11:59 PM CDT Hospital Encounter [facility] [address] [place] [address] Анна Vizcaino MD Nashif, Sereen, MD Encounter for follow-up ultrasound of anatomy; Gestational diabetes mellitus (GDM) in second trimester, gestational diabetes method of control unspecified Discharge Disposition: Home or Self Care 12/24/2024 Travel 12/03/2024 11:30 AM CDT Office Visit [facility] [address] [place] [phone] Анна Vizcaino MD Obesity in (Primary Dx); Encounter for follow-up ultrasound of anatomy; Gestational diabetes mellitus (GDM) in second trimester, gestational diabetes method of control unspecified; BMI 33.0-33.9,adult 12/03/2024 10:47 AM CDT - 12/03/2024 11:59 PM CDT Hospital Encounter [facility] [address] [place] [address] Анна Vizcaino MD related condition, antepartum Discharge Disposition: Home or Self Care 12/03/2024 Travel 12/01/2024 Travel from Last 3 Months Social History Tobacco Use Types Packs/Day Years Used Date Smoking Tobacco: Never Assessed Estimated Date of Delivery Comme nts Yes 03/28/2025 Based on last me nstrual period of 06/21/2024 Sex and Gender Information Value Date Recorded Sex Assigned at Not on file Legal Sex Female 8:10 AM CDT Gender Identity Not on file Sexual Orientation Not on file Plan of Treatment Health Maintenance Due Date Last Done Comments ADVANCE CARE PLANNING 1990 ANNUAL REVIEW OF HM ORDERS 1991 YEARLY PREVENTIVE VISIT 1994 HEPATITIS B VACCINE (1 of 3 - 19+ 3-dose series) 2010 PAP 2012 COVID-19 VACCINE (1 - 2023-2 5 season) 2024 MATERNAL SCREENING DISCUSSION 08/30/2024 PHQ-2 (once per calendar year) 2024 OBGCT (OB) 12/06/2024 TDAP VACCINE () 12/27/2024 GROUP B STREP SCREENING 02/28/2025 INFLUENZA VACCINE (Season Ended) 2025 07/17/2023, 07/04/2022 DTAP/TDAP/TD VACCINE (3 - Td or Tdap) 12/04/2033 12/05/2023, 03/25/2019 ZOSTER VACCINE (1 of 2) 2041 HEPATITIS C SCREENING Completed 12/24/2018 HIV SCREENING Completed 12/24/2018 HPV VACCINE Aged Out No longer eligi ble based on patient's age to complete this topic MENINGITIS VACCINE Aged Out No longer eligible based on patient's age to complete this topic PNEUMOCOCCAL VACCINE: PEDIATRICS (0 to 5 YEARS) AND AT-RISK PATIENTS (6 to 49 YEARS) Aged Out No longer eligible b ased on patient's age to complete this topic RSV VACCINE (No Doses Required) Completed Procedures Procedure Name Priority Date/Time Associated Diagnosis Comments [facility] F/U Routine 12/24/2024 11:04 AM CDT Encounter for follow-up ultrasound of anatomy Gestational diabetes mellitus (GDM) in second trimester, gestational diabetes method of control unspecified [facility] COMPREHENSIVE SINGLE Routine 12/03/2024 11:54 AM CDT related condition, antepartum from Last 3 Months Results * [facility] Comprehensive Single F/U (12/24/2024 11:04 AM CDT) Anatomical Region Laterality Modality Ultrasound 12/24/2024 10:1 8 AM CDT Impressions 12/24/2024 12:35 PM CDT IMPRESSION ----- 1. Burch at 26w 4d gestational age. 2. The remaining anatomic survey was completed, no anomalies commonly detected by ultrasound were identified within the limits of ultrasound. 3. Growth parameters and estimated weight were appropriate for gestational age. 4. The amniotic fluid volume appeared normal. Narrative 12/24/2024 12:35 PM CDT Comp Follow Up ----- Pat. Name: SWETA PIERRE Study Date: 12/24/2024 10:18am Pat. NO: [id number] Referring MD: RANJAN VEGA Site: Ibm Bpm Architect: Nelda Nick RDMS : 1990 Age: 34 ----- INDICATION ----- History of Gestational Diabetes BMI 33 History of Gestational Hypertension in prior Short interval Follow up suboptimal anatomy METHOD ----- Transabdominal ultrasound examination. View: Sufficient ----- Burch . Number of fetuses: 1 DATING ----- Date Details Gest. age GABE LMP 06/21/2024 26 w + 4 d 03/28/2025 Previous U/S 08/27/2024 GA, GA 9 w + 0 d 26 w + 0 d 04/01/2025 U/S 12/24/2024 based upon AC, BPD, Femur, HC 26 w + 5 d 03/27/2025 Assigned dating based on the LMP, selected on 12/24/2024 26 w + 4 d 03/28/2025 GENERAL EVALUATION ----- Cardiac activity present. FHR 146 bpm. movements: present. Presentation: cephalic Placenta: Posterior, No Previa, > 2 cm from internal os Umbilical cord: previously studied Amniotic fluid: Amount of AF: normal. MVP 9.4 cm. GWENDOLYN 23.0 cm. Q1 9.4 cm, Q2 7.5 cm, Q3 1.5 cm, Q4 4.7 cm BIOMETRY ----- BPD 66.3 mm 26w 5d Hadlock OFD 91.0 mm 27w 0d Nicolaides HC 251.1 mm 27w 2d Hadlock Cerebellum tr 29.5 mm 26w 2d Nicolaides AC 233.6 mm 27w 5d 76% Hadlock Femur 45.8 mm 25w 1d Hadlock Weight Calculation: EFW 975 g 44% Hadlock EFW (lb,oz) 2 lb 2 oz EFW by Hadlock ([id number]) Head / Face / Neck Biometry: Health And Wellness Manager 7.9 mm CM 5.5 mm Nasal bone 9.7 mm ANATOMY ----- The following structures appear normal: Head / Neck Cranium. Head size. Head shape. Lateral ventricles. Midline falx. Cavum septi pellucidi. Cerebellum. Cisterna magna. Thalami. Face Lips. Profile. Nose. Maxilla. Lens. Heart / Thorax 4-chamber view. RVOT view. LVOT view. 3-vessel view. 2-yfrzzz-mgpsdzl view. Ductal arch view. Diaphragm. Abdomen Stomach. Kidneys. Bladder. Spine Cervical spine. Thoracic spine. Lumbar spine. Sacral spine. MATERNAL STRUCTURES ----- Cervix Suboptimal Right Ovary Not examined Left Ovary Not examined RECOMMENDATION ----- Thank-you for referring your patient for ultrasound assessment. Further ultrasounds as clinically indicated. Return to primary provider for continued care. If you have questions regarding today's evaluation or if we can be of further service, please contact the [facility]. anomalies may be present but not detected Procedure Note Graham Chin MD - 12/24/2024 Comp Follow Up ----- Pat. Name: SWETA PIERRE Study Date: 12/24/2024 10:18am Pat. NO: [id number] Referring MD: RANJAN VEGA Site: Ibm Bpm Architect: Nelda Nick RDMS : 1990 Age: 34 ----- INDICATION ----- History of Gestational Diabetes BMI 33 History of Gestational Hypertension in prior Short interval Follow up suboptimal anatomy METHOD ----- Transabdominal ultrasound examination. View: Sufficient ----- Burch . Number of fetuses: 1 DATING ----- DateDetailsGest. age GABE LMP w + 4 d 03/28/2025 Previous U/S 08/27/2024 GA, GA9 w + 0 d26 w + 0 d 04/01/2025 U/S 12/24/2024ased upon AC, BPD, Femur, HC26 w + 5 d 03/27/2025 Assigned dating based on the LMP, selected on w + 4 d 03/28/2025 GENERAL EVALUATION ----- Cardiac activity present. FHR 146 bpm. movements: present.Presentation: cephalic Placenta: Posterior, No Previa, > 2 cm from internal os Umbilical cord: previously studied Amniotic fluid: Amount of AF: normal. MVP 9.4 cm. GWENDOLYN 23.0 cm. Q1 9.4 cm,Q2 7.5 cm, Q3 1.5 cm, Q4 4.7 cm BIOMETRY ----- BPD 66.3mm 26w 5dHadlock OFD 91.0mm 27w 0dNicolaides HC 251.1mm 27w 2dHadlock Cerebellum tr 29.5mm 26w 2dNicolaides AC 233.6mm 27w 5d 76%Hadlock Femur 45.8mm 25w 1dHadlock Weight Calculation: EFW 975g 44%Hadlock EFW (lb,oz) 2 lb 2oz EFW by Hadlock([id number]) Head / Face / Neck Biometry: Health And Wellness Manager 7.9mm CM 5.5mm Nasal bone 9.7mm ANATOMY ----- The following structures appear normal: Head / Neck Cranium. Head size. Head shape.Lateral ventricles. Midline falx. Cavum septi pellucidi. Cerebellum.Cisterna magna. Thalami. Face Lips. Profile. Nose. Maxilla.Lens. Heart / Thorax 4-chamber view. RVOT view. LVOT view.3-vessel view. 5-cqttha-znaxgzj view. Ductal arch view. Diaphragm. Abdomen Stomach. Kidneys. Bladder. Spine Cervical spine. Thoracic spine.Lumbar spine. Sacral spine. MATERNAL STRUCTURES ----- Cervix Suboptimal Right Ovary Not examined Left Ovary Not examined RECOMMENDATION ----- Thank-you for referring your patient for ultrasound assessment. Further ultrasounds as clinically indicated. Return to primary provider for continued care. If you have questions regarding today's evaluation or if we can be offurther service, please contact the [facility]. anomalies may be present but not detected IMPRESSION ----- 1. Burch at 26w 4d gestational age. 2. The remaining anatomic survey was completed, no anomaliescommonly detected by ultrasound were identified within the limits ofprenatal ultrasound. 3. Growth parameters and estimated weight were appropriate forgestational age. 4. The amniotic fluid volume appeared normal. us Анна Vizcaino MD Gwendolyn [facility] ORDERABLES Edited Res ult - Final * [facility] Comprehensive Single (12/03/2024 11:54 AM CDT) Anatomical Region Laterality Modality Ultrasound 12/03/2024 10:5 1 AM CDT Impressions 12/03/2024 12:37 PM CDT IMPRESSION ----- 1. Burch at 23w 4d gestational age. 2. No anomalies commonly detected by ultrasound were identified in the detailed anatomic survey within the limits of ultrasound, however some views were suboptimal, as described above. The lateral ventricles appear prominent, however, measure within normal limits. There is no evidence of open neural tube defect. 3. Growth parameters and estimated weight were consistent with gestational age predicted by assigned GABE. 4. The amniotic fluid volume appeared normal. 5. On transabdominal imaging the cervix appeared long and closed. Narrative 12/03/2024 12:37 PM CDT Comprehensive ----- Pat. Name: SWETA PIERRE Study Date: 12/03/2024 10:51am Pat. NO: [id number] Referring MD: RANJAN VEGA Site: Ibm Bpm Architect: Jesu Zelaya : 1990 Age: 34 ----- INDICATION ----- Suspected sacral dimple on outside ultrasound History of Gestational Diabetes BMI 33 History of Gestational Hypertension in prior Short interval METHOD ----- Transabdominal ultrasound examination. View: Suboptimal view: limited by position ----- Burch . Number of fetuses: 1 DATING ----- Date Details Gest. age GABE LMP 06/21/2024 23 w + 4 d 03/28/2025 Previous U/S 08/27/2024 GA, GA 9 w + 0 d 23 w + 0 d 04/01/2025 U/S 12/03/2024 based upon AC, BPD, Femur, HC 24 w + 1 d 03/24/2025 Assigned dating based on the LMP, selected on 12/03/2024 23 w + 4 d 03/28/2025 GENERAL EVALUATION ----- Cardiac activity present. FHR 153 bpm. movements: present. Presentation: Variable Placenta: Posterior, No Previa, > 2 cm from internal os Umbilical cord: 3 vessel cord Amniotic fluid: Amount of AF: normal. MVP 6.3 cm BIOMETRY ----- BPD 57.7 mm 23w 5d Hadlock OFD 80.9 mm 24w 3d Nicolaides HC 222.1 mm 24w 2d Hadlock Cerebellum tr 25.1 mm 23w 1d Nicolaides AC 202.9 mm 24w 6d 81% Hadlock Femur 41.2 mm 23w 3d Hadlock Humerus 38.9 mm 23w 6d Nicki Weight Calculation: EFW 672 g 71% Hadlock EFW (lb,oz) 1 lb 8 oz EFW by Hadlock ([id number]) Head / Face / Neck Biometry: Health And Wellness Manager 9.8 mm CM 4.7 mm ANATOMY ----- The following structures appear normal: Head / Neck Cranium. Head size. Head shape. Lateral ventricles. Choroid plexus. Midline falx. Cavum septi pellucidi. Cerebellum. Cisterna magna. Parenchyma. Thalami. Vermis. Neck. Face Orbits. Heart / Thorax LVOT view. 6-iaiwgt-dworanq view. Situs. Aortic arch view. Bicaval view. Superior vena cava. Inferior vena cava. Cardiac position. Cardiac size. Cardiac rhythm. Right lung. Left lung. Diaphragm. Abdomen Abdom. wall. Cord insertion. Stomach. Kidneys. Bladder. Liver. Bowel. Genitals. Spine Cervical spine. Thoracic spine. Lumbar spine. Sacral spine. Extremities / Skeleton Arms. Right arm. Right hand. Left arm. Left hand. Legs. Right leg. Right foot. Left leg. Left foot. The following structures could not be adequately visualized: Heart / Thorax 4-chamber view. RVOT view. 3-vessel view. Ductal arch view. The following structures could not be visualized: Face Lips. Profile. Nose. Maxilla. Mandible. Lens. MATERNAL STRUCTURES ----- Cervix Visualized Appearance: Appears Closed Approach - Transabdominal: Cervical length 38.6 mm Right Ovary Visualized Left Ovary Visualized RECOMMENDATION ----- Thank-you for referring your patient for ultrasound assessment. I discussed the findings on today's ultrasound with the patient. I reviewed the limitations of ultrasound both in detecting aneuploidy and structural abnormalities. Ultrasound can routinely detect 80-90% of structural abnormalities. She has not had genetic screening. MSAFP returned within normal limits. We reviewed that the spine appears within normal limits on ultrasound today. We discussed that open neural tube defects are readily detected on ultrasound when present, however, there are limitations in ultrasound ability to detect more subtle closed neural tube defects. While none are suspected today, it will be important for the to have a thorough physical exam at time if . Additionally, we reviewed that the lateral ventricles appear somewhat prominent on ultrasound today, however, are currently within normal limits. We will plan to reassess suboptimally visualized anatomy and repeat assessment of the lateral ventricles with MFM in 3 weeks. Return to primary provider for continued care. If you have questions regarding today's evaluation or if we can be of further service, please contact the [facility]. I spent a total of 15 minutes (excluding the ultrasound interpretation) on the date of this encounter including preparing to see the patient (reviewing medical records/tests), in direct [id number]-[id number] contact with the patient counseling and discussing the plan of care, documenting the visit in the electronic medical record, and communicating with other health long term care administrator and/or care coordination. Procedure Note Анна Vizcaino MD - 12/03/2024 Comprehensive ----- Pat. Name: SWETA PIERRE Study Date: 12/03/2024 10:51am Pat. NO: [id number] Referring MD: RANJAN VEGA Site: Ibm Bpm Architect: Jesu Zelaya RDMS : 1990 Age: 34 ----- INDICATION ----- Suspected sacral dimple on outside ultrasound History of Gestational Diabetes BMI 33 History of Gestational Hypertension in prior Short interval METHOD ----- Transabdominal ultrasound examination. View: Suboptimal view: limited byfetal position ----- Burch . Number of fetuses: 1 DATING ----- DateDetailsGest. age GABE LMP w + 4 d 03/28/2025 Previous U/S 08/27/2024 GA, GA9 w + 0 d23 w + 0 d 04/01/2025 U/S 5based upon AC, BPD, Femur, HC24 w + 1 d 03/24/2025 Assigned dating based on the LMP, selected on w + 4 d 03/28/2025 GENERAL EVALUATION ----- Cardiac activity present. FHR 153 bpm. movements: present.Presentation: Variable Placenta: Posterior, No Previa, > 2 cm from internal os Umbilical cord: 3 vessel cord Amniotic fluid: Amount of AF: normal. MVP 6.3 cm BIOMETRY ----- BPD 57.7mm 23w 5dHadlock OFD 80.9mm 24w 3dNicolaides HC 222.1mm 24w 2dHadlock Cerebellum tr 25.1mm 23w 1dNicolaides AC 202.9mm 24w 6d 81%Hadlock Femur 41.2mm 23w 3dHadlock Humerus 38.9mm 23w 6dJeanty Weight Calculation: EFW 672g 71%Hadlock EFW (lb,oz) 1 lb 8oz EFW by Hadlock([id number]) Head / Face / Neck Biometry: Health And Wellness Manager 9.8mm CM 4.7mm ANATOMY ----- The following structures appear normal: Head / Neck Cranium. Head size. Head shape.Lateral ventricles. Choroid plexus. Midline falx. Cavum septi pellucidi.Cerebellum. Cisterna magna. Parenchyma. Thalami. Vermis. Neck. Face Orbits. Heart / Thorax LVOT view. 1-nmksiq-lxlqoaw view.Situs. Aortic arch view. Bicaval view. Superior vena cava. Inferior venacava. Cardiac position. Cardiac size. Cardiac rhythm. Right lung. Left lung.Diaphragm. Abdomen Abdom. wall. Cord insertion. Stomach.Kidneys. Bladder. Liver. Bowel. Genitals. Spine Cervical spine. Thoracic spine.Lumbar spine. Sacral spine. Extremities / Skeleton Arms. Right arm. Right hand. Left arm.Left hand. Legs. Right leg. Right foot. Left leg. Left foot. The following structures could not be adequately visualized: Heart / Thorax 4-chamber view. RVOT view. 3-vesselview. Ductal arch view. The following structures could not be visualized: Face Lips. Profile. Nose. Maxilla.Mandible. Lens. MATERNAL STRUCTURES ----- Cervix Visualized Appearance: Appears Closed Approach - Transabdominal:Cervical length 38.6 mm Right Ovary Visualized Left Ovary Visualized RECOMMENDATION ----- Thank-you for referring your patient for ultrasound assessment. I discussed the findings on today's ultrasound with the patient. Ireviewed the limitations of ultrasound both in detecting aneuploidy andstructural abnormalities. Ultrasound can routinely detect 80-90% of structural abnormalities. She has not hadgenetic screening. MSAFP returned within normal limits. We reviewed that the spine appears within normal limits onultrasound today. We discussed that open neural tube defects are readilydetected on ultrasound when present, however, there are limitations in ultrasound ability to detectmore subtle closed neural tube defects. While none are suspected today, itwill be important for the to have a thorough physical exam at time if . Additionally,we reviewed that the lateral ventricles appear somewhat prominent onultrasound today, however, are currently within normal limits. We will plan to reassess suboptimallyvisualized anatomy and [facility] Return to primary provider for continued care. If you have questions regarding today's evaluation or if we can be offurther service, please contact the [facility]. I spent a total of 15 minutes (excluding the ultrasound interpretation) onthe date of this encounter including preparing to see the patient(reviewing medical records/tests), in direct [id number] contact with the patient counseling and discussingthe plan of care, documenting the visit in the electronic medical record,and communicating with other health long term care administrator and/or care coordination. IMPRESSION ----- 1. Burch at 23w 4d gestational age. 2. No anomalies commonly detected by ultrasound were identified inthe detailed anatomic survey within the limits of prenatalultrasound, however some views were suboptimal, as described above. The lateral ventricles appearprominent, however, measure within normal limits. There is no evidence ofopen neural tube defect. 3. Growth parameters and estimated weight were consistent withgestational age predicted by assigned GABE. 4. The amniotic fluid volume appeared normal. 5. On transabdominal imaging the cervix appeared long and closed. Ranjan Vega APRN, CNM [facility] ORDERABLES Edit ed Result - Final from Last 3 Months Insurance [employer] [facility] Care Teams Application Integrator Relationship Specialty Start Date End Date Monika Blackman NP [address] [address] PCP - General 11/16/24
--- OUTSIDE RECORDS SUMMARY | 2025-02-26 01:00 | XMS_ITS | Encounter Summary ---
Author Organization [facility] Address [address] [place] [address] Care Team Providers Care Manager Fast Food Name Role Phone None Reported, Pcp Primary Care Provider Unavail able Reason for Referral * Outpatient (Routine) - Closed Specialty Diagnoses / Procedures Referred By Contac t Referred To Contact Diagnoses 33 Weeks Gestation (HCC) Procedures Miscellaneous FBC Procedures Jaclyn Lynch M.D. 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 [address] [place] [address] Scheduled Orders Name Type Priority Associated Diagnoses Orde r Schedule Miscellaneous FBC Procedures OB Routine 33 Weeks Gestation (HCC) Expected: 02/04/2025, Expires: 05/06/2026 documented as of this encounter Visit Diagnoses Diagnosis 33 Weeks Gestation (HCC)- Primary documented in this encounter Care Teams Manager Fast Food Relationship Specialty Start Date End Date None Reported, Pcp PCP - General Family Medicine 02/03/25 documented as of this encounter
== END 2025-02-25 07:16 | disposition home or self-care (01) ==
LOC: US 07:15
PROVIDERS: PCP Nurse Practitioner Family; Visit Provider Advanced Practice Midwife
DX: O24.410 Gestational diabetes mellitus in pregnancy, diet controlled (principal); O36.5930 Maternal care for other known or suspected poor fetal growth, third trimester, not applicable or unspecified; Z3A.35 35 weeks gestation of pregnancy
CPT/HCPCS: 76816

== ENCOUNTER 2025-02-25 08:48 | Outpatient (CLI) | payer OTHER, SELFPAY | END 2025-02-25 08:49 | disposition home or self-care (01) | LOC: NFLDREF 03-02 00:51 | PROVIDERS: PCP Nurse Practitioner Family; Referring Provider Nurse Practitioner Family; Visit Provider Obstetrics & Gynecology | DX: Z34.83 Encounter for supervision of other normal pregnancy, third trimester (principal) | CPT/HCPCS: 87081; 87653 ==

== ENCOUNTER 2025-03-14 14:45 | Outpatient (CLI) | payer OTHER, SELFPAY ==
--- NOTE | 2025-03-14 14:45 | CRLHL7_ITS ---
For Patients: As a result of the Cures Act, medical imaging exams and procedure reports are released immediately into your electronic medical record. You may view this report before your referring provider. If you have questions, please contact your health care provider. INDICATION: Decreased movement. TECHNIQUE: Transabdominal OB pelvis ultrasound for biophysical profile. COMPARISON: 02/25/2025. FINDINGS: Single living intrauterine in transverse orientation with heart rate of 161 beats per minute. Single deepest pocket of amniotic fluid is within normal limits at 4.2 cm. Posterior fundal placenta is otherwise unremarkable in appearance. tone: 2/2 movement: 2/2 breathin/2 Amniotic fluid volume: 2/2 IMPRESSION: Single living intrauterine with biophysical profile of 6/8. Dictated by Sae Tripathi MD @ 03/14/2025 4:34:59 PM Dictated by: Sae Tripatih MD @ 03/14/2025 16:35:43 (Electronically Signed)
== END 2025-03-14 14:46 | disposition home or self-care (01) ==
LOC: US 14:45
PROVIDERS: PCP Nurse Practitioner Family; Visit Provider Obstetrics & Gynecology
DX: O36.8130 Decreased fetal movements, third trimester, not applicable or unspecified (principal)
CPT/HCPCS: 76819

== ENCOUNTER 2025-03-14 17:50 | Outpatient (CLI) | payer OTHER, SELFPAY ==
[2025-03-14 17:56] VITALS: PULSE 91; RESP 16; TEMP 36.8; O2SAT 97
[2025-03-14 17:59] VITALS: BP 108/76; PULSE 88
[2025-03-14 18:01] VITALS: PULSE 94; O2SAT 96
[2025-03-14 18:06] VITALS: PULSE 96; O2SAT 96
[2025-03-14 18:11] VITALS: PULSE 87; O2SAT 97
--- NOTE | 2025-03-14 18:38 | PM.OBLDTN ---
OB - Triage/Final Diagnosis Visit Information Time Seen by Provider: 18:38 Narrative: The patient is a [] year old [] para [] at [] weeks gestation by [], who presents with []. [] Evaluation Vital signs: Vital Signs - 24 hr 03/14/25 17:56 03/14/25 17:59 03/14/25 18:01 Temperature 98.2 F Pulse Rate 88 Respiratory Rate 16 Blood Pressure 108/76 Pulse Oximetry 97 96 03/14/25 18:06 03/14/25 18:11 Temperature Pulse Rate Respiratory Rate Blood Pressure Pulse Oximetry 96 97
--- NOTE | 2025-03-14 18:39 | PC.OBNST ---
NST Note NST Note Start: 03/14/25 17:52 Freq: ONCE Status: Active Protocol: Document 03/14/25 18:35 VMM (Rec: 03/14/25 18:38 VMM Desktop) NST Note 4 Para (# of births) 3 EDC 03/28/25 Gestational Age In 38 Weeks & 0 Days Weeks & Days High Risk Factors Diabetes - Gestational Insulin Other Complaints Patient was seen per Dr. Sy's request for position in clinic. Reactive Yes Appropriate for Yes Gestational Age MAGGIE Tinoco RN Date 03/14/25 Reactive Yes Appropriate for Yes Gestational Age MAGIGE Vega CNM Date 03/14/25 OB NST charge Yes Complete NST Note Yes via Write Note The provider's electronic signature indicates the NST is reactive/appropriate for gestational age. *Note to provider: If an addendum is required, open the patient's chart and click on the note under the Nurse/Allied Health tab.
--- NOTE | 2025-05-01 15:59 | PC.OBNST ---
NST Note NST Note Start: 03/14/25 17:52 Freq: ONCE Status: Discharge Protocol: Document 03/14/25 18:35 VMM (Rec: 03/14/25 18:38 VMM Desktop) NST Note 4 Para (# of births) 3 EDC 03/28/25 Gestational Age In 38 Weeks & 0 Days Weeks & Days High Risk Factors Diabetes - Gestational Insulin Other Complaints Patient was seen per Dr. Sy's request for position in clinic. Reactive Yes Appropriate for Yes Gestational Age MAGGIE Tinoco RN Date 03/14/25 Reactive Yes Appropriate for Yes Gestational Age MAGGIE Vega CNM Date 03/14/25 OB NST charge Yes Complete NST Note Yes via Write Note The provider's electronic signature indicates the NST is reactive/appropriate for gestational age. *Note to provider: If an addendum is required, open the patient's chart and click on the note under the Nurse/Allied Health tab.
== END 2025-03-14 18:44 | disposition home or self-care (01) ==
LOC: OB OUT 17:51 → OB 17:52
PROVIDERS: PCP Nurse Practitioner Family; Visit Provider Obstetrics & Gynecology
DX: O24.419 Gestational diabetes mellitus in pregnancy, unspecified control (principal); O99.013 Anemia complicating pregnancy, third trimester; O36.8130 Decreased fetal movements, third trimester, not applicable or unspecified; Z3A.38 38 weeks gestation of pregnancy
CPT/HCPCS: 59025; 76815; G0463

== ENCOUNTER 2025-03-17 17:41 | Inpatient (IN) | payer OTHER, SELFPAY ==
[2025-03-17 17:58] VITALS: PULSE 112; TEMP 36.6; O2SAT 97
[2025-03-17 17:59] VITALS: BP 121/77; PULSE 108
[2025-03-17 18:03] VITALS: PULSE 110; O2SAT 97
[2025-03-17 18:08] VITALS: PULSE 111; O2SAT 96; BMI 35.8
--- NOTE | 2025-03-17 19:28 | W.PM.LDBA ---
Subjective History of Present Illness Time Seen by Provider: 18:30 Date Seen: 03/17/25 Narrative: Sweta is being admitted to Labor and Delivery for induction of labor due to poorly controlled GDM A2 her cervix was dilated to 1 cm/50%/-3 on 03/14/2025. She is a 34 year old at 38w3d weeks gestation. Her full history and physical was dictated by Dr. Sy on 03/14/2025. Please see this for details. She has been having some sporadic contractions today and felt crampy and nauseated on and off the last 2 days. Has noticed normal movement. On 03/14/2025 the fetus was in transverse presentation so has a variable lie. If she is doing cervical ripening tonight I would err on the side of using Cytotec there than a Cook catheter as I do not want to push the vertex out of the pelvis that would result in malpresentation the patient states understanding. Admission blood sugar: 169 1 hour after eating a croissant. Specific Issues/Plans : Vee H&P: Dr. Sy on 03/14/25 # GDMA1 (insulin with 2nd, others diet controlled) --> Uncontrolled GDMA2, limited time to start insulin. Has repeat US w/MFM at 26wks.---26w Lev 2 with normal findings. [place] 44%ile A1C-5.8 Nutrition referral offered but declines. Working on implementing dietary changes. Was only checking sugars twice daily at time of MD visit on 02/25. Recommended QID sugar testing and follow up upon return from her vacation. This will determine IOL and delivery team recommendations. Growth US every 4 weeks starting at 28 weeks. Growth scheduled for 35 week visit. Patient has not been seen since 02/25/25 Will start insulin 4u NPH 03/14/25, declined as she will be induced this week Delivery recommend at 38th week due to presumably uncontrolled GDMA2 for several weeks, no surveillance testing prior to 38 weeks Delivery schedule cervical ripening on 03/17 PM # Unstable lie??? BPP on 03/14 reported transverse position Repeat US on L&D by Dr. Sy after was cephalic. Thus, ECV no indicated Please confirm presentation prior to starting IOL # Low ferritin. Will start PO iron at 24wks r/t her epistaxis. IV iron infusion prior auth initiated 02/18. # Close spaced -4 months. Delivered 02/14/24. # Hx GHTN, dx in labor last . Baseline labs WNL, 24 hour urine 0.09 # PP depression [id number] (feels it was situational). # Hep B immunity present with past infection, no active infection Hep B antigen neg Hep B antibody positive Hep B core positive # Suspected sacral dimple on US. Resolved. Level 2 US: Not identified on MFM US but recommend through exam at time of . AFP: negative Genetic screening: undecided # Prominent lateral ventricles in MFM US on 12/03/24. RESOLVED Repeat in 3 weeks with MFM-12/24/24- normal findings # Persistent epistaxis. Surgery to remove polyp 02/03. Ultrasounds: 02/25/25: cephalic, SDP 4.3 cm, EFW 49.4%, AC 95%, BPD 7%, HC 10%, FL<3%. OB - Problem Based A/P Additional Plan (1) GDM, class A2: Status: Acute Plan 1. Discharge home and return at 6am for pitocin and AROM when able. 2. Dr. Watson to assume care at 7am on 03/18/25. OB Exam Physical Exam Vital signs: Temp Pulse BP Pulse Ox 97.9 F 108 H 121/77 96 03/17/25 17:58 03/17/25 17:59 03/17/25 17:59 03/17/25 18:08 Narrative: General: Pleasant, woman in no acute distress. Vital signs: Included in her electronic medical record. Heart: Regular rate and rhythm without gallop, rub or murmur. Chest: Clear to auscultation bilaterally. Abdomen: Gravid nontender and nondistended with normal bowel sounds throughout. Presentation: Vertex by Hero's maneuvers and bedside ultrasound an image was printed for the patient's chart. EFM: Baseline: 130 bpm. Accelerations: Present. Decelerations: Absent. Moderate variability. Reactive. [place]: Q 12-15 minute SVE: 5 cm/60%/-3/mid/soft. Cruz score: 8 Extremities: No pain, edema or varicosities.
== END 2025-03-17 19:37 | disposition home or self-care (01) | DRG 833 ==
PROVIDERS: Admitting Provider Obstetrics & Gynecology; PCP Nurse Practitioner Family; Visit Provider Obstetrics & Gynecology
DX: O24.419 Gestational diabetes mellitus in pregnancy, unspecified control (principal); Z3A.38 38 weeks gestation of pregnancy
CPT/HCPCS: 85025; 86592; 86850; 86900; 86901

== ENCOUNTER 2025-03-18 06:24 | Inpatient (IN) | payer OTHER, SELFPAY ==
[2025-03-18] VITALS (198 sets, daily range): BP systolic 95–175; BP diastolic 54–90; PULSE 72–165; RESP 16–20; TEMP 36.7–37; O2SAT 87–100; BMI 35.8
--- NOTE | 2025-03-18 06:49 | W.PM.LDBA ---
Subjective History of Present Illness Time Seen by Provider: 06:49 Date Seen: 03/18/25 Narrative: Sweta is being admitted to Labor and Delivery for induction of labor due to poorly controlled GDM A2 she was going to be started on insulin but because she is so far along in the it was decided to schedule an induction of labor. She is a 34 year old at 38 and 4/7 weeks gestation. Her full history and physical was dictated by Dr. Sy on 03/14/25. Please see this for details. She was seen yesterday evening to be admitted for cervical ripening but was noted to have a favorable cervical exam so was discharged home and readmitted this morning for IV Pitocin and AROM. She has had contractions overnight but nothing particularly painful. Have been somewhat regular every 5-7 minutes. Reports normal movement. Denies having leaking fluid or vaginal bleeding. Specific Issues/Plans : Candacee H&P: Dr. Sy on 03/14/25 # GDMA1 (insulin with 2nd, others diet controlled) --> Uncontrolled GDMA2, limited time to start insulin. Has repeat US w/MFM at 26wks.---26w Lev 2 with normal findings. [place] 44%ile A1C-5.8 Nutrition referral offered but declines. Working on implementing dietary changes. Was only checking sugars twice daily at time of MD visit on 02/25. Recommended QID sugar testing and follow up upon return from her vacation. This will determine IOL and delivery team recommendations. Growth US every 4 weeks starting at 28 weeks. Growth scheduled for 35 week visit. Patient has not been seen since 02/25/25 Will start insulin 4u NPH 03/14/25, declined as she will be induced this week Delivery recommend at 38th week due to presumably uncontrolled GDMA2 for several weeks, no surveillance testing prior to 38 weeks Delivery schedule cervical ripening on 03/17 PM # Unstable lie??? BPP on 03/14 reported transverse position Repeat US on L&D by Dr. Sy after was cephalic. Thus, ECV no indicated Please confirm presentation prior to starting IOL # Low ferritin. Will start PO iron at 24wks r/t her epistaxis. IV iron infusion prior auth initiated 02/18. # Close spaced -4 months. Delivered 02/14/24. # Hx GHTN, dx in labor last . Baseline labs WNL, 24 hour urine 0.09 # PP depression [id number] (feels it was situational). # Hep B immunity present with past infection, no active infection Hep B antigen neg Hep B antibody positive Hep B core positive # Suspected sacral dimple on US. Resolved. Level 2 US: Not identified on [facility] US but recommend through exam at time of . AFP: negative Genetic screening: undecided # Prominent lateral ventricles in MFM US on 12/03/24. RESOLVED Repeat in 3 weeks with [facility]-12/24/24- normal findings # Persistent epistaxis. Surgery to remove polyp 02/03. Ultrasounds: 02/25/25: cephalic, SDP 4.3 cm, EFW 49.4%, AC 95%, BPD 7%, HC 10%, FL<3%. OB - Problem Based A/P Additional Plan (1) Encounter for induction of labor: Status: Acute Plan 1. Admission BS = 115 (fasting) 2. Start Pitocin per labor induction protocol 3. GBS negative. 4. Blood type AB+ 5. AROM when able. 6. Dr. Watson will be assuming care at 7Am today. OB Exam Physical Exam Narrative: General: Pleasant, woman in no acute distress. Vital signs: Included in her electronic medical record. Heart: Regular rate and rhythm without gallop, rub or murmur. Chest: Clear to auscultation bilaterally. Abdomen: Gravid nontender and nondistended with normal bowel sounds throughout. Presentation: Vertex by Hero's maneuvers and bedside ultrasound an image was printed for the patient's chart. EFM: Baseline: 130 bpm. Accelerations: Present. Decelerations: Absent. Moderate variability. Reactive. [place]: Q 12-15 minute SVE: 6 cm/70%/-3/mid/soft. Cruz score: 8 Extremities: No pain, edema or varicosities.
[2025-03-18 06:50] LABS: Hematocrit 42.4 % (33.0-51.0); Hemoglobin* 13.4 gm/dL (12.0-16.0); Immature Granulocytes Abs Auto 0.21 K/uL (0.00-0.30); Immature Granulocytes Pct Auto 2.2 %; Lymphocytes Absolute Auto 2.27 K/uL (0.90-2.90); Mean Corpuscular HGB Conc 32 gm/dL (32-36); Mean Corpuscular Hemoglobin 26 pg (26-34); Mean Corpuscular Volume 84 fL (80-100); RDW Coefficient of Variation % 14.2 % (11.5-15.5); Red Blood Count 5.08 m/uL (4.00-5.20); White Blood Count* 9.50 K/uL (4.50-11.00)
[2025-03-18 06:51] LABS: Slide Review Reflex No
--- NOTE | 2025-03-18 07:44 | P.OBHP_ITS ---
OB - H&P: HPI Labor/Induction History of Present Illness Date Seen: 03/18/25 Chief complaint: maternity Narrative: The patient is a 34 year old 4 para 3 at 38 weeks gestation by LMP, who presents for IOL in the setting of suboptimally controlled GDMA2 (declined insulin). is otherwise complicated by unstable lie, low ferritin, close interval , history of gHTN, suspected anomalies on US (normal level 2 - see details in plan). Her complete H&P was completed by Dr. Sy on 03/14/25. Please see this for complete details. Patient presented last night for IOL, where she was found to be 5-6cm dilated. She was discharged to return this morning. She notes irregular contractions at home, nothing regular/painful. No vaginal bleeding or leaking of fluids. Endorses active movement. Checked on admission by Dr. Garcia, /- 3. Specific Issues/Plans : Vee H&P: Dr. Sy on 03/14/25 # GDMA1 (insulin with 2nd, others diet controlled) --> Uncontrolled GDMA2, limited time to start insulin. Has repeat US w/MFM at 26wks.---26w Lev 2 with normal findings. [place] 44%ile A1C-5.8 Nutrition referral offered but declines. Working on implementing dietary changes. Was only checking sugars twice daily at time of MD visit on 02/25. Recommended QID sugar testing and follow up upon return from her vacation. This will determine IOL and delivery team recommendations. Growth US every 4 weeks starting at 28 weeks. Growth scheduled for 35 week visit. Patient has not been seen since 02/25/25 Will start insulin 4u NPH 03/14/25, declined as she will be induced this week Delivery recommend at 38th week due to presumably uncontrolled GDMA2 for several weeks, no surveillance testing prior to 38 weeks Delivery schedule cervical ripening on 03/17 PM # Unstable lie??? BPP on 03/14 reported transverse position Repeat US on L&D by Dr. Sy after was cephalic. Thus, ECV no indicated Please confirm presentation prior to starting IOL # Low ferritin. Will start PO iron at 24wks r/t her epistaxis. IV iron infusion prior auth initiated 02/18. # Close spaced -4 months. Delivered 02/14/24. # Hx GHTN, dx in labor last . Baseline labs WNL, 24 hour urine 0.09 # PP depression [id number] (feels it was situational). # Hep B immunity present with past infection, no active infection Hep B antigen neg Hep B antibody positive Hep B core positive # Suspected sacral dimple on US. Resolved. Level 2 US: Not identified on [facility] US but recommend through exam at time of . AFP: negative Genetic screening: undecided # Prominent lateral ventricles in [facility] US on 12/03/24. RESOLVED Repeat in 3 weeks with M-12/24/24- normal findings # Persistent epistaxis. Surgery to remove polyp 02/03. Ultrasounds: 02/25/25: cephalic, SDP 4.3 cm, EFW 49.4%, AC 95%, BPD 7%, HC 10%, FL<3%. Meds Home Medications and Allergies Home Medications ?Medication ?Instructions ?Recorded ?Confirmed ?Type vitamin #56-iron 35 mg 1 cap PO QDAY 07/17/23 03/18/25 History and 5 mg-folic acid 1 mg-dha capsule blood sugar diagnostic (FreeStyle #10 ea 04/06/2403/08 History Lite Strips) lancets 28 gauge (FreeStyle #100 ea 04/06/24 03/18/25 History Lancets) lancets #360 ea 12/10/24 03/18/25 Rx Test Strips #360 ea 12/13/24 03/18/25 Rx ferrous sulfate 325 mg (65 mg 325 mg PO QDAY 02/17/25 03/18/25 History iron) tablet (FeroSul) Allergies Allergy/AdvReac Type Severity Reaction Status Date / Time No Known Drug Allergies Allergy Verified 03/14/25 17:58 OB - H&P: Exam Physical Exam: Vital signs: Temp Pulse Resp BP 98.1 F 99 16 114/68 03/18/25 07:20 03/18/25 07:44 03/18/25 06:23 03/18/25 07:44 Narrative: General: Alert and oriented, in no acute distress Psych: Appropriate mood and affect Abdomen: Gravid. Cephalic confirmed by US. Cervix: 6/70/-3 per NDP FHR: Category 1. Baseline 140bpm, moderate variability, accelerations present and no decelerations. [place]: Irregular contractions OB - Results Labs Labs: Short CBC 03/18/25 Range/Units 06:40 WBC 9.50 (4.50-11.00) K/uL Hgb 13.4 (12.0-16.0) gm/dL Hct 42.4 (33.0-51.0) % Plt Count 274 (140-440) K/uL OB - Problem Based A/P Additional Plan (1) Encounter for induction of labor: Status: Acute Plan Sweta Pierre is a 34 year old 4 para 3 at 38w4d GA admitted for IOL in the setting of uncontrolled GDMA2 (declined insulin). is otherwise complicated by unstable lie, low ferritin, close interval , history of gHTN, suspected anomalies on US (normal level 2 - see details in plan). on admission, cervix is 6/70/-[address] Garcia. I performed a bedside ultrasound, cephalic presentation confirmed. - Start induction of labor with Pitocin, plan to titrate 2 milliunits per minute Q 30 minutes - Anticipate amniotomy as next step in induction - Anticipate next exam in about 4 hours, sooner as clinically indicated - Blood type AB-positive - GBS negative - EFW by US on 02/25/2025 was 2715g at 49%ile with AC at 95%ile. - Pain control per patient preference/anesthesia, undecided between unmedicated vs epidural - Counseled she is high risk for shoulder dystocia in the setting of uncontrolled GDMA2. Discussed potential interventions that could be required if shoulder dystocia occurs. Counseled on risks including cord compression, hypoxia, neurologic compromise, brachial plexus injury and demise in catastrophic events. Plan to deliver with bed broken down in the event of shoulder, team aware of risk. Patient expressed understanding and is agreeable to plan
[2025-03-18] MEDS: LACTATED RINGERS 1000 ML 1,000 ML 125 ML IV ×4 (08:15→20:20)
[2025-03-18] MEDS: OXYTOCIN 30 unit/500 ML in NS 30 UNIT/500 ML BAG IVPB (08:15)
[2025-03-18] MEDS: LIDOCAINE 2% (PF) 5 ML VIAL EPIDURAL (11:18)
[2025-03-18] MEDS: ROPIVACAINE 0.2 % PF 10 ML INJ 20 MG EPIDURAL (11:18)
[2025-03-18] MEDS: ROPIVACAINE 0.2% 100 ml 100 ML 10 MG EPIDURAL (11:21)
--- NOTE | 2025-03-18 11:25 | P.ANBPRC_ITS ---
[facility] Medical History (Updated 03/18/25 @ 06:52 by Janessa Garcia MD) Gestational hypertension ?O13.9 - Gestational [-induced] hypertension without significant proteinuria, unspecified trimester (ICD-10) History of depression ?Z87.59 - Personal history of other complications of , childbirth and the puerperium (ICD-10) ?Z86.59 - Personal history of other mental and behavioral disorders (ICD-10) Hx gestational diabetes ?Z86.32 - Personal history of gestational diabetes (ICD-10) Surgical History History of wisdom tooth extraction ?K08.409 - Partial loss of teeth, unspecified cause, unspecified class (ICD- 10) Family History (Updated 04/19/24 @ 23:19 by Nick Vizcaino MD) Maternal Grandmother No problems noted. Father Diabetes Mother No problems noted. Paternal Grandmother Diabetes Social History (Updated 08/27/24 @ 11:11 by Dian Vega CNM) Narrative: SOCIAL? ? Education: high school, has [employer]y license? ? 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 ? Partner: Vee, , video game repair technician? ? Lives with: Anai, 3 boys? ? Pets: denies? ? Abuse: Denies past Safe at home with current partner ? ? Special Diet: Denies? ? Ok with a blood transfusion: yes? ? Culture or congregational beliefs: Does do a specific diet PP, partner will bring. ? RISK FACTORS? ? Exercise Times/wk: walking occasionally ? ? Depression/Anxiety: PP depression after first - somewhat situational, partner was deployed just after delivery.? ? Previous Treatments: none Therapy: 2 sessions after first Seat Belt Use: Routinely ? Smoking: Denies past/present? ? Alcohol/day: Denies while ? ? Caffeine: occ? ? Drug Use: Denies past/present? ? . 3 children. Works for [employer]. No formal exercise. Non-smoker. No alcohol. No illicit drug use. What is your current living situation?: I presently have a place to live Problems where you live: no known problems In the past 12 months, utilities in danger of being shut off: no In past 12 months, lack of transportation kept you from medical appts, meetings, work, or getting things needed for daily living: no In the past 12 mos, have been you worried that your food would run out before you had money to buy more?: never true In the past 12 mos, the food you bought just didn't last and you didn't have money to buy more?: never true Smoking Status: Never smoker How often does anyone, including family, friends and others, physically hurt you : never How often does anyone, including family, friends and others, insult or talk down to you: never How often does anyone, including family, friends and others, threaten you with harm: never How often does anyone, including family, friends and others, scream or curse at you: never Meds Home Medications and Allergies Home Medications ?Medication ?Instructions ?Recorded ?Confirmed ?Type vitamin #56-iron 35 mg 1 cap PO QDAY 07/17/23 03/18/25 History and 5 mg-folic acid 1 mg-dha capsule blood sugar diagnostic (FreeStyle #10 ea 04/06/2403/08 History Lite Strips) lancets 28 gauge (FreeStyle #100 ea 04/06/24 03/18/25 History Lancets) lancets #360 ea 12/10/24 03/18/25 Rx Test Strips #360 ea 12/13/24 03/18/25 Rx ferrous sulfate 325 mg (65 mg 325 mg PO QDAY 02/17/25 03/18/25 History iron) tablet (FeroSul) Allergies Allergy/AdvReac Type Severity Reaction Status Date / Time No Known Drug Allergies Allergy Verified 03/14/25 17:58 Results Labs Labs: Laboratory Results - last 24 hr 03/18/25 06:40 WBC 9.50 RBC 5.08 Hgb 13.4 Hct 42.4 MCV 84 MCH 26 MCHC 32 RDW Coeff of Joe 14.2 Plt Count 274 Neut % (Auto) 65.8 Lymph % (Auto) 23.9 [place] % (Auto) 7.1 Eos % (Auto) 0.5 Baso % (Auto) 0.5 Neut # (Auto) 6.25 Lymph # (Auto) 2.27 [place] # (Auto) 0.70 Eos # (Auto) 0.05 Baso # (Auto) 0.05 Abs Immat Gran (auto) 0.21 Imm/Tot Granulo (auto) 2.2 Blood Type AB Positive Antibody Screen NEGATIVE Vital Signs Vital Signs: Last Vital Signs Temp 98.4 F 03/18/25 10:47 Pulse 92 03/18/25 11:23 Resp 20 03/18/25 10:47 BP 112/66 03/18/25 11:23 Pulse Ox 97 03/18/25 11:24 Weight: 83.189 kg Height: 152.4 cm Anesthesia Procedures Epidural Insertion Patient Location: OB Start Time: : Stop Time: Start Date: 03/18/25 Stop Date: 03/18/25 Reason for Block: procedure for pain Patient Position: sitting Performed By: Michael Hernández Preanesthetic Checklist: IV checked, risks and benefits discussed, surgical consent, monitors and equipment checked, pre-op evaluation, timeout performed and anesthesia consent Prep: chlorhexidine gluconate Monitoring: blood pressure monitoring, continuous pulse oximetry and heart rate Approach: midline Vertebral Space: lumbar (1-5) Epidural Technique: ELENI air Needle Type: Tuohy needle Injection Technique: continuous catheter Needle gauge: 17 Needle Length (cm): 10 cm Needle Insertion Depth (cm): 7 Catheter Gauge: 19 Catheter Type: multi-orifice Catheter at skin depth (cm): 13 Test Dose Result: negative and lidocaine 1.5% with epinephrine 1 to 200,000
[2025-03-18] MEDS: ONDANSETRON 2 MG/ML inj 4 MG IV (11:53)
[2025-03-18] MEDS: PHENYLEPHRINE 100 MCG/ML SYRINGE IVP ×4 (11:59→13:29)
--- NOTE | 2025-03-18 14:17 | P.OBPN_ITS ---
Subjective Time Seen by Provider: 14:00 Date Seen: 03/18/25 Narrative: Delayed documentation due to patient cares: 1100: Sweta is a 34 year old 4 para 3 at 38 weeks gestation by LMP admitted for IOL in the setting of suboptimally controlled GDMA2 (declined insulin). is otherwise complicated by unstable lie, low ferritin, close interval , history of gHTN, suspected anomalies on US (normal level 2 - see details in plan). She is now on pitocin 10mu/min, inge q2-3 minutes. Feeling comfortable still. Agreeable to cervical exam. On repeat exam, cervix is 6/70/-2 and head is well applied to cervix. Discussed next step of likely AROM. Patient desires epidural first, thus we will notify RAND SEWER. 1330: When I returned to the bedside to perform AROM, I could not readily palpate the head. Bedside TAUS confirmed oblique presentation, head to maternal right pelvis. Pitocin was stopped. On Hero's, the baby was noted to be very mobile. I applied slight pressure to the head from maternal right, where it would move freely to the midline. Catheter was then placed, where vertex presentation was again noted with these efforts on TAUS. Repeat cervical exam was 6/70/ballotable. We discussed potential next steps, where I am reassured that baby readily converted to vertex with slight pressure and bladder decompression. Still, I am concerned about the potential for malpresentation as her IOL continues given unstable presentation. Recommend AROM as next step in her IOL, where I did student assistance counselor her she will be at increased risk of cord prolapse given high station. Recommend proceeding with amniotomy despite this risk as I am concern for potentially emergent in the setting of variable presentation, potential for SROM and cord prolapse. Patient expressed understanding and verbal consent was obtained. Spoke with OR teams to ensure immediate availability of OR staff prior to performing amniotomy. Amniotomy was performed at 1344, where a small hole was made in the amniotic sac and fluid was gradually expelled. As vertex descended, digitally extended the amniotomy site. vertex was well applied at 6.5/80/-1 at completion of this exam. No cord prolapse identified. Category 1 FHR tracing. - s/p AROM at 1344, plan to restart pitocin at half dose - 6mu/min - Anticipate exam in 2 hours, sooner as clinically indicated. - Will have low threshold to complete TAUS if any concerns arise in the future for malpresentation - Blood type AB-positive - GBS negative - EFW by US on 02/25/2025 was 2715g at 49%ile with AC at 95%ile. - Blood glucose monitoring and SSI per protocol Objective Vital Signs: Last Vital Signs Temp 98.2 F 03/18/25 13:31 Pulse 83 03/18/25 14:10 Resp 16 03/18/25 12:36 BP 107/67 03/18/25 14:10 Pulse Ox 96 03/18/25 14:15
--- NOTE | 2025-03-18 18:51 | P.OBPN_ITS ---
Subjective Time Seen by Provider: 18:30 Date Seen: 03/18/25 Narrative: Sweta is a 34 year old 4 para 3 at 38 weeks gestation by LMP admitted for IOL in the setting of suboptimally controlled GDMA2 (declined insulin). is otherwise complicated by unstable lie, low ferritin, close interval , history of gHTN, suspected anomalies on US (normal level 2 - see details in plan). Intrapartum course has been notable for conversion from vertex to oblique, where with gentle pressure the fetus could be converted back to vertex. AROM was performed at 1344, uncomplicated. Pitocin was turned off at 1423, due to a variable prolonged deceleration. status rapidly recovered. At 1600, repeat exam failed to demonstrate cervical change were an IUPC was placed and pitocin titration was resumed. There has been an intermittent 2 FHR tracing for periods of minimal variability or intermittent/recurrent variable decelerations. Overall, the FHR tracing has remained reassuring with a normal baseline, moderate variability and regular accelerations. I presented to the bedside for repeat exam in the setting of variable decelerations and to assess labor progress in the active phase. Pitocin was reduced from 6mu/min to 3 mu/min in the setting of recurrent variable de celerations, bolus started. FHR did recover again to baseline of 140bpm with moderate variability. Cervix was checked and again is unchanged at 6/80/-1. Slight edema is felt anteriorly. MVUs have not been adequate, though pitocin titration has been limited by FHR tracing. Patient inquired about the possibility of . Explained that I am concerned about her abnormal labor course, which would be defined as a labor dystocia in the active phase. I did explain that she would not meet criteria for arrest of dilation unless there was no change in 6 hours with inadequate contractions. Though she was 5-6 cm on presentation, I would not consider this in our time line for as she was clinically not in active labor (minimal pain). Explained if her cervix remains unchanged at 1945 this would represent arrest of dilation where I would recommend . Certainly, this could be required sooner if heart rate is nonreassuring. Though intermittently category 2, overall there is a normal baseline, moderate variability and accelerations present. The sometimes recurrent variables decelerations respond well to position changes. Certainly, I explained if Sweta is no longer c omfortable continuing her induction we could certainly proceed to a sooner. She and her discussed their options privately. Ultimately, she would like to proceed with continued induction at this time and repeat examination at 1945. If unchanged, she would be agreeable to a primary . Plan to reassess at that time. All questions answered. Objective Vital Signs: Last Vital Signs Temp 98.2 F 03/18/25 16:25 Pulse 83 03/18/25 18:39 Resp 16 03/18/25 16:25 BP 119/73 03/18/25 18:39 Pulse Ox 99 03/18/25 18:47 Plan Plan: - s/p AROM at 1344, plan to restart pitocin at half dose - 6mu/min - Anticipate exam in 2 hours, sooner as clinically indicated. - Will have low threshold to complete TAUS if any concerns arise in the future for malpresentation - Blood type AB-positive - GBS negative - EFW by US on 02/25/2025 was 2715g at 49%ile with AC at 95%ile. - Blood glucose monitoring and SSI per protocol
--- NOTE | 2025-03-18 21:05 | PM.OBPNL ---
Subjective Time Seen by Provider: 19:45 Date Seen: 03/18/25 Narrative: Sweta is a 34 year old 4 para 3 at 38 weeks gestation by LMP admitted for IOL in the setting of suboptimally controlled GDMA2 (declined insulin). is otherwise complicated by unstable lie, low ferritin, close interval , history of gHTN, suspected anomalies on US (normal level 2 - see details in plan). Patient is due for routine cervical check. Also reporting pressure for about the last 30 minutes. Objective Exam: General: Alert and oriented, in no acute distress Psych: Appropriate mood and affect Abdomen: Gravid. Cephalic confirmed by US. Cervix: FHR: Category 1-2. Baseline 140bpm, moderate variability, accelerations absent recently with repetitive early decelerations. Rarely, late deceleration timing. [place]: Sameer q2-4 minutes Vital Signs: Last Vital Signs Temp 98.1 F 03/18/25 18:33 Pulse 87 03/18/25 20:55 Resp 18 03/18/25 18:33 BP 118/57 L 03/18/25 20:55 Pulse Ox 98 03/18/25 20:58 Plan Plan: - Cervix has demonstrated change after labor dystocia in the active phase - now . - Prolonged deceleration occurred at 2004, where FSE was applied. FHR was noted to recover to baseline of 130bpm with moderate variability. Pitocin was stopped. IVF bolus started and maternal repositioning continued throughout. - Patient noted urge to push, where we tried to push past her remaining cervix without success. Expulsive efforts paused for 15 minutes. - On repeat exam, patient was anterior lip and successfully pushed past remaining cervix at 2020 - representing start of second stage. Continue maternal expulsive efforts. - Blood type AB-positive - GBS negative - EFW by US on 02/25/2025 was 2715g at 49%ile with AC at 95%ile. - Blood glucose monitoring and SSI per protocol
--- NOTE | 2025-03-18 21:12 | W.PM.VAGDEL1 ---
Procedure Procedure Done: Global Procedure Details: Normal spontaneous vaginal delivery Events: GDMA2, Labor Induction and Other (Variable presentation, history of gHTN) Intrapartal Events: Labor Induction Delivery augmentation: rupture of membranes Delivery monitor: internal FHT Route of delivery: Laceration description: None Estimated blood loss (mL): 150 Anesthesia type: Epidural Disposition: floor Complications: None Narrative: Sweta is a 34 yo at 38w2d GA admitted for induction of labor in the setting of uncontrolled GDM A2. is complicated by unstable lie, close interval , history of gestational hypertension, low ferritin, suspected anomaly on ultrasound. heart tones on admission were category 1. Her labor was induced with Pitocin and epidural was utilized for pain management. Status of bag of conner: AROM occurred intrapartum. heart tones during active labor were category 1 and 2. She was complete at 2020 and started pushing at 2020. She made excellent descent throughout the second stage of labor, and had a normal spontaneous vaginal delivery at 2031. heart tones during second stage of labor were category 2 for recurrent variable decelerations, with initially rapid return to baseline then more gradual return to baseline. This was tolerated as baby did recovery to baseline of 120bpm with moderate variability and delivery was imminent. Baby delivered OA, restituted STEVEN and the anterior and posterior shoulders delivered without difficulty. Nuchal cord: absent. The cord was clamped and cut after delayed cord clamping. Active management of the third stage occurred with IV pitocin and gentle cord traction and the placenta delivered spontaneous and intact at 2053. Cord gases sent: no Cord blood sent for ABO: no details: - Liveborn male fetus at 2031 - weight: pending at time of documentation - APGARs were 8 and 9 at 1 and 5 minutes respectively Perineum and vagina were inspected, and the following lacerations were noted: none. No repair was required. Excellent uterine tone was noted. Excellent hemostasis was noted. The following counts were correct: sponges, needles, instruments. Mother and in stable condition following the . [place] Infant Infant Gender: Male presentation: vertex Placental Delivery Description: Spontaneous Cord Description: 3 Vessels
[2025-03-18] MEDS: IBUPROFEN 600 MG TABLET PO (23:25)
[2025-03-19 00:16] VITALS: BP 113/72; PULSE 85; RESP 18; TEMP 37; O2SAT 94
[2025-03-19 04:00] VITALS: BP 102/69; PULSE 82; RESP 16; TEMP 36.7; O2SAT 95
[2025-03-19 07:47] VITALS: BP 104/73; PULSE 76; RESP 16; TEMP 36.7; O2SAT 97
[2025-03-19 07:58] LABS: Hemoglobin* 11.7 gm/dL (12.0-16.0)
[2025-03-19] MEDS: IBUPROFEN 600 MG TABLET PO ×2 (08:01→18:36)
[2025-03-19] MEDS: DOCUSATE SODIUM 100 MG CAPSULE PO (08:01)
--- NOTE | 2025-03-19 10:16 | P.DS_ITS ---
DS: Providers Provider Time Seen by Provider: 09:00 Date Seen: 03/19/25 Date of admission: 03/18/25 06:24 Primary care physician: Monika Blackman APRN, SUSTAINABLE COMMUNITIES DESIGNER Admitting Clinician: Janessa Garcia MD Attending Physician on discharge: Janessa Garcia MD Date of Discharge: 03/19/25 DS: Diagnosis Discharge Diagnosis (1) (normal spontaneous vaginal delivery): Status: Acute Exam Narrative: Exam Narrative: GENERAL APPEARANCE: Pleasant, , well-groomed woman in no acute distress. VITAL SIGNS: as noted in nursing notes HEAD: Normocephalic, atraumatic. THYROID: no masses, nodularity, tenderness or enlargement. LUNGS: Clear to auscultation bilaterally without wheezes, rales or rhonchi. HEART: Regular rate and rhythm with normal S1 and S2. No gallop, rub or murmur. ABDOMEN: Gravid. Soft, nontender, nondistended, with normal bowels sounds throughout. Fundus firm umbilicus in the midline. EXTREMITIES: No cyanosis, clubbing, or edema. No varicosities. NEUROLOGIC: Normal gait and balance. Normal deep tendon reflexes at bilateral patella 2+/2, equal without clonus. PSYCHIATRIC: alert and oriented x3. Normal speech pattern, eye contact and affect. SKIN: Warm, dry, and well perfused. Good turgor. No lesions, nodules or rashes. Const: Vital Signs, click to edit/add: Vital Signs - 24 hr 03/18/25 10:45 03/18/25 10:46 03/18/25 10:47 Temperature 98.4 F Pulse Rate 94 Pulse Rate [Pulse Oximeter] Respiratory Rate 20 Blood Pressure 120/75 Blood Pressure [Le ft Arm] Blood Pressure [Ri ght Arm] Pulse Oximetry 95 Oxygen Delivery Me thod 03/18/25 11:08 03/18/25 11:09 03/18/25 11:14 Temperature Pulse Rate 93 Pulse Rate [Pulse Oximeter] Respiratory Rate Blood Pressure 121/85 Blood Pressure [Le ft Arm] Blood Pressure [Ri ght Arm] Pulse Oximetry 98 98 Oxygen Delivery Me thod 03/18/25 11:19 03/18/25 11:23 03/18/25 11:24 Temperature Pulse Rate 92 Pulse Rate [Pulse Oximeter] Respiratory Rate Blood Pressure 112/66 Blood Pressure [Le ft Arm] Blood Pressure [Ri ght Arm] Pulse Oximetry 98 97 Oxygen Delivery Me thod 03/18/25 11:25 03/18/25 11:28 03/18/25 11:29 Temperature Pulse Rate 105 H 105 H Pulse Rate [Pulse Oximeter] Respiratory Rate Blood Pressure 108/66 119/70 Blood Pressure [Le ft Arm] Blood Pressure [Ri ght Arm] Pulse Oximetry 97 Oxygen Delivery Me thod 03/18/25 11:30 03/18/25 11:32 03/18/25 11:34 Temperature Pulse Rate 100 113 H 107 H Pulse Rate [Pulse Oximeter] Respiratory Rate Blood Pressure 107/59 L 103/60 106/60 Blood Pressure [Le ft Arm] Blood Pressure [Ri ght Arm] Pulse Oximetry 97 Oxygen Delivery Me thod 03/18/25 11:36 03/18/25 11:38 03/18/25 11:39 Temperature Pulse Rate 105 H 96 Pulse Rate [Pulse Oximeter] Respiratory Rate Blood Pressure 101/58 L 101/60 Blood Pressure [Le ft Arm] Blood Pressure [Ri ght Arm] Pulse Oximetry 97 Oxygen Delivery Me thod 03/18/25 11:40 03/18/25 11:42 03/18/25 11:44 Temperature Pulse Rate 96 105 H 98 Pulse Rate [Pulse Oximeter] Respiratory Rate Blood Pressure 103/57 L 102/61 104/59 L Blood Pressure [Le ft Arm] Blood Pressure [Ri ght Arm] Pulse Oximetry 97 Oxygen Delivery Me thod 03/18/25 11:46 03/18/25 11:48 03/18/25 11:49 Temperature Pulse Rate 99 101 H Pulse Rate [Pulse Oximeter] Respiratory Rate Blood Pressure 103/59 L 102/60 Blood Pressure [Le ft Arm] Blood Pressure [Ri ght Arm] Pulse Oximetry 96 Oxygen Delivery Me thod 03/18/25 11:50 03/18/25 11:52 03/18/25 11:54 Temperature Pulse Rate 102 H 96 107 H Pulse Rate [Pulse Oximeter] Respiratory Rate Blood Pressure 103/60 104/60 103/60 Blood Pressure [Le ft Arm] Blood Pressure [Ri ght Arm] Pulse Oximetry 96 Oxygen Delivery Me thod 03/18/25 11:56 03/18/25 11:58 03/18/25 11:59 Temperature Pulse Rate 93 100 Pulse Rate [Pulse Oximeter] Respiratory Rate Blood Pressure 104/57 L 102/57 L Blood Pressure [Le ft Arm] Blood Pressure [Ri ght Arm] Pulse Oximetry 97 Oxygen Delivery Me thod 03/18/25 12:00 03/18/25 12:02 03/18/25 12:04 Temperature Pulse Rate 99 88 96 Pulse Rate [Pulse Oximeter] Respiratory Rate Blood Pressure 114/67 111/64 109/64 Blood Pressure [Le ft Arm] Blood Pressure [Ri ght Arm] Pulse Oximetry 96 Oxygen Delivery Me thod 03/18/25 12:06 03/18/25 12:08 03/18/25 12:09 Temperature Pulse Rate 100 103 H Pulse Rate [Pulse Oximeter] Respiratory Rate Blood Pressure 104/63 105/63 Blood Pressure [Le ft Arm] Blood Pressure [Ri ght Arm] Pulse Oximetry 97 Oxygen Delivery Me thod 03/18/25 12:10 03/18/25 12:14 03/18/25 12:17 Temperature Pulse Rate 93 77 Pulse Rate [Pulse Oximeter] Respiratory Rate Blood Pressure 108/65 99/61 Blood Pressure [Le ft Arm] Blood Pressure [Ri ght Arm] Pulse Oximetry 97 Oxygen Delivery Me thod 03/18/25 12:19 03/18/25 12:21 03/18/25 12:24 Temperature Pulse Rate 75 76 Pulse Rate [Pulse Oximeter] Respiratory Rate Blood Pressure 107/63 107/65 Blood Pressure [Le ft Arm] Blood Pressure [Ri ght Arm] Pulse Oximetry 97 96 Oxygen Delivery Me thod 03/18/25 12:26 03/18/25 12:29 03/18/25 12:31 Temperature Pulse Rate 83 72 Pulse Rate [Pulse Oximeter] Respiratory Rate Blood Pressure 99/64 98/54 L Blood Pressure [Le ft Arm] Blood Pressure [Ri ght Arm] Pulse Oximetry 98 Oxygen Delivery Me thod 03/18/25 12:35 03/18/25 12:36 03/18/25 12:40 Temperature 98.3 F Pulse Rate 77 Pulse Rate [Pulse Oximeter] Respiratory Rate 16 Blood Pressure 114/72 Blood Pressure [Le ft Arm] Blood Pressure [Ri ght Arm] Pulse Oximetry 97 98 Oxygen Delivery Me thod 03/18/25 12:41 03/18/25 12:45 03/18/25 12:47 Temperature Pulse Rate 82 80 Pulse Rate [Pulse Oximeter] Respiratory Rate Blood Pressure 118/70 112/70 Blood Pressure [Le ft Arm] Blood Pressure [Ri ght Arm] Pulse Oximetry 97 Oxygen Delivery Me thod 03/18/25 12:50 03/18/25 12:51 03/18/25 12:55 Temperature Pulse Rate 78 Pulse Rate [Pulse Oximeter] Respiratory Rate Blood Pressure 119/76 Blood Pressure [Le ft Arm] Blood Pressure [Ri ght Arm] Pulse Oximetry 98 96 Oxygen Delivery Me thod 03/18/25 12:56 03/18/25 13:00 03/18/25 13:01 Temperature Pulse Rate 81 84 Pulse Rate [Pulse Oximeter] Respiratory Rate Blood Pressure 116/76 116/76 Blood Pressure [Le ft Arm] Blood Pressure [Ri ght Arm] Pulse Oximetry 97 Oxygen Delivery Me thod 03/18/25 13:05 03/18/25 13:06 03/18/25 13:10 Temperature Pulse Rate 88 Pulse Rate [Pulse Oximeter] Respiratory Rate Blood Pressure 117/81 Blood Pressure [Le ft Arm] Blood Pressure [Ri ght Arm] Pulse Oximetry 96 96 Oxygen Delivery Me thod 03/18/25 13:11 03/18/25 13:15 03/18/25 13:16 Temperature Pulse Rate 91 92 Pulse Rate [Pulse Oximeter] Respiratory Rate Blood Pressure 109/70 97/58 L Blood Pressure [Le ft Arm] Blood Pressure [Ri ght Arm] Pulse Oximetry 96 Oxygen Delivery Me thod 03/18/25 13:20 03/18/25 13:21 03/18/25 13:25 Temperature Pulse Rate 94 Pulse Rate [Pulse Oximeter] Respiratory Rate Blood Pressure 95/56 L Blood Pressure [Le ft Arm] Blood Pressure [Ri ght Arm] Pulse Oximetry 96 96 Oxygen Delivery Me thod 03/18/25 13:26 03/18/25 13:30 03/18/25 13:30 Temperature Pulse Rate 91 Pulse Rate [Pulse Oximeter] Respiratory Rate Blood Pressure 98/56 L Blood Pressure [Le ft Arm] Blood Pressure [Ri ght Arm] Pulse Oximetry 95 94 Oxygen Delivery Me thod 03/18/25 13:31 03/18/25 13:32 03/18/25 13:35 Temperature 98.2 F Pulse Rate 79 Pulse Rate [Pulse Oximeter] Respiratory Rate Blood Pressure 106/58 L Blood Pressure [Le ft Arm] Blood Pressure [Ri ght Arm] Pulse Oximetry 96 Oxygen Delivery Me thod 03/18/25 13:36 03/18/25 13:40 03/18/25 13:45 Temperature Pulse Rate 80 Pulse Rate [Pulse Oximeter] Respiratory Rate Blood Pressure 103/58 L Blood Pressure [Le ft Arm] Blood Pressure [Ri ght Arm] Pulse Oximetry 96 96 Oxygen Delivery Me thod 03/18/25 13:46 03/18/25 13:50 03/18/25 13:53 Temperature Pulse Rate 81 80 Pulse Rate [Pulse Oximeter] Respiratory Rate Blood Pressure 125/78 119/70 Blood Pressure [Le ft Arm] Blood Pressure [Ri ght Arm] Pulse Oximetry 97 Oxygen Delivery Me thod 03/18/25 13:55 03/18/25 14:00 03/18/25 14:05 Temperature Pulse Rate Pulse Rate [Pulse Oximeter] Respiratory Rate Blood Pressure Blood Pressure [Le ft Arm] Blood Pressure [Ri ght Arm] Pulse Oximetry 97 97 97 Oxygen Delivery Me thod 03/18/25 14:10 03/18/25 14:11 03/18/25 14:15 Temperature Pulse Rate 83 Pulse Rate [Pulse Oximeter] Respiratory Rate Blood Pressure 107/67 Blood Pressure [Le ft Arm] Blood Pressure [Ri ght Arm] Pulse Oximetry 95 93 96 Oxygen Delivery Me thod 03/18/25 14:20 03/18/25 14:24 03/18/25 14:25 Temperature Pulse Rate 100 Pulse Rate [Pulse Oximeter] Respiratory Rate Blood Pressure 118/73 Blood Pressure [Le ft Arm] Blood Pressure [Ri ght Arm] Pulse Oximetry 95 97 Oxygen Delivery Me thod 03/18/25 14:25 03/18/25 14:30 03/18/25 14:32 Temperature 98.2 F Pulse Rate Pulse Rate [Pulse Oximeter] Respiratory Rate 18 Blood Pressure Blood Pressure [Le ft Arm] Blood Pressure [Ri ght Arm] Pulse Oximetry 94 95 93 Oxygen Delivery Me thod 03/18/25 14:35 03/18/25 14:39 03/18/25 14:40 Temperature Pulse Rate 104 H Pulse Rate [Pulse Oximeter] Respiratory Rate Blood Pressure 112/62 Blood Pressure [Le ft Arm] Blood Pressure [Ri ght Arm] Pulse Oximetry 96 96 Oxygen Delivery Me thod 03/18/25 14:45 03/18/25 14:47 03/18/25 14:50 Temperature Pulse Rate Pulse Rate [Pulse Oximeter] Respiratory Rate Blood Pressure Blood Pressure [Le ft Arm] Blood Pressure [Ri ght Arm] Pulse Oximetry 97 87 L 95 Oxygen Delivery Me thod 03/18/25 14:54 03/18/25 14:55 03/18/25 15:00 Temperature Pulse Rate 83 Pulse Rate [Pulse Oximeter] Respiratory Rate Blood Pressure 117/69 Blood Pressure [Le ft Arm] Blood Pressure [Ri ght Arm] Pulse Oximetry 95 95 Oxygen Delivery Me thod 03/18/25 15:05 03/18/25 15:08 03/18/25 15:10 Temperature Pulse Rate 88 Pulse Rate [Pulse Oximeter] Respiratory Rate Blood Pressure 112/67 Blood Pressure [Le ft Arm] Blood Pressure [Ri ght Arm] Pulse Oximetry 95 95 Oxygen Delivery Me thod 03/18/25 15:15 03/18/25 15:20 03/18/25 15:20 Temperature Pulse Rate Pulse Rate [Pulse Oximeter] Respiratory Rate Blood Pressure Blood Pressure [Le ft Arm] Blood Pressure [Ri ght Arm] Pulse Oximetry 96 95 94 Oxygen Delivery Me thod 03/18/25 15:23 03/18/25 15:25 03/18/25 15:28 Temperature Pulse Rate 86 Pulse Rate [Pulse Oximeter] Respiratory Rate Blood Pressure 114/67 Blood Pressure [Le ft Arm] Blood Pressure [Ri ght Arm] Pulse Oximetry 95 94 Oxygen Delivery Me thod 03/18/25 15:30 03/18/25 15:32 03/18/25 15:33 Temperature 98.3 F Pulse Rate Pulse Rate [Pulse Oximeter] Respiratory Rate Blood Pressure Blood Pressure [Le ft Arm] Blood Pressure [Ri ght Arm] Pulse Oximetry 96 93 Oxygen Delivery Me thod 03/18/25 15:35 03/18/25 15:38 03/18/25 15:40 Temperature Pulse Rate 94 Pulse Rate [Pulse Oximeter] Respiratory Rate Blood Pressure 118/71 Blood Pressure [Le ft Arm] Blood Pressure [Ri ght Arm] Pulse Oximetry 97 95 Oxygen Delivery Me thod 03/18/25 15:45 03/18/25 15:49 03/18/25 15:50 Temperature Pulse Rate Pulse Rate [Pulse Oximeter] Respiratory Rate Blood Pressure Blood Pressure [Le ft Arm] Blood Pressure [Ri ght Arm] Pulse Oximetry 96 94 95 Oxygen Delivery Me thod 03/18/25 15:54 03/18/25 15:55 03/18/25 15:56 Temperature Pulse Rate 89 Pulse Rate [Pulse Oximeter] Respiratory Rate Blood Pressure 116/76 Blood Pressure [Le ft Arm] Blood Pressure [Ri ght Arm] Pulse Oximetry 95 94 Oxygen Delivery Me thod 03/18/25 16:00 03/18/25 16:03 03/18/25 16:05 Temperature Pulse Rate Pulse Rate [Pulse Oximeter] Respiratory Rate Blood Pressure Blood Pressure [Le ft Arm] Blood Pressure [Ri ght Arm] Pulse Oximetry 94 94 97 Oxygen Delivery Me thod 03/18/25 16:10 03/18/25 16:15 03/18/25 16:24 Temperature Pulse Rate 104 H Pulse Rate [Pulse Oximeter] Respiratory Rate Blood Pressure 117/70 Blood Pressure [Le ft Arm] Blood Pressure [Ri ght Arm] Pulse Oximetry 96 96 Oxygen Delivery Me thod 03/18/25 16:25 03/18/25 16:39 03/18/25 16:53 Temperature 98.2 F Pulse Rate 101 H 111 H Pulse Rate [Pulse Oximeter] Respiratory Rate 16 Blood Pressure 103/59 L 105/67 Blood Pressure [Le ft Arm] Blood Pressure [Ri ght Arm] Pulse Oximetry Oxygen Delivery Ma thod 03/18/25 17:10 03/18/25 17:24 03/18/25 17:39 Temperature Pulse Rate 92 96 133 H Pulse Rate [Pulse Oximeter] Respiratory Rate Blood Pressure 108/66 127/75 175/70 H Blood Pressure [Le ft Arm] Blood Pressure [Ri ght Arm] Pulse Oximetry Oxygen Delivery Ma thod 03/18/25 17:41 03/18/25 17:42 03/18/25 17:47 Temperature Pulse Rate 99 Pulse Rate [Pulse Oximeter] Respiratory Rate Blood Pressure 133/72 Blood Pressure [Le ft Arm] Blood Pressure [Ri ght Arm] Pulse Oximetry 94 96 96 Oxygen Delivery Ma thod 03/18/25 17:48 03/18/25 17:52 03/18/25 17:54 Temperature Pulse Rate 106 H Pulse Rate [Pulse Oximeter] Respiratory Rate Blood Pressure 122/73 Blood Pressure [Le ft Arm] Blood Pressure [Ri ght Arm] Pulse Oximetry 94 96 Oxygen Delivery Me thod 03/18/25 17:57 03/18/25 18:02 03/18/25 18:07 Temperature Pulse Rate Pulse Rate [Pulse Oximeter] Respiratory Rate Blood Pressure Blood Pressure [Le ft Arm] Blood Pressure [Ri ght Arm] Pulse Oximetry 97 98 95 Oxygen Delivery Me thod 03/18/25 18:10 03/18/25 18:12 03/18/25 18:13 Temperature Pulse Rate 111 H Pulse Rate [Pulse Oximeter] Respiratory Rate Blood Pressure 108/65 Blood Pressure [Le ft Arm] Blood Pressure [Ri ght Arm] Pulse Oximetry 96 94 Oxygen Delivery Me thod 03/18/25 18:17 03/18/25 18:22 03/18/25 18:27 Temperature Pulse Rate Pulse Rate [Pulse Oximeter] Respiratory Rate Blood Pressure Blood Pressure [Le ft Arm] Blood Pressure [Ri ght Arm] Pulse Oximetry 97 97 99 Oxygen Delivery Me thod 03/18/25 18:32 03/18/25 18:33 03/18/25 18:37 Temperature 98.1 F Pulse Rate Pulse Rate [Pulse Oximeter] Respiratory Rate 18 Blood Pressure Blood Pressure [Le ft Arm] Blood Pressure [Ri ght Arm] Pulse Oximetry 99 98 Oxygen Delivery Me thod 03/18/25 18:39 03/18/25 18:42 03/18/25 18:47 Temperature Pulse Rate 83 Pulse Rate [Pulse Oximeter] Respiratory Rate Blood Pressure 119/73 Blood Pressure [Le ft Arm] Blood Pressure [Ri ght Arm] Pulse Oximetry 98 99 Oxygen Delivery Me thod 03/18/25 18:52 03/18/25 18:54 03/18/25 18:57 Temperature Pulse Rate 85 Pulse Rate [Pulse Oximeter] Respiratory Rate Blood Pressure 123/82 Blood Pressure [Le ft Arm] Blood Pressure [Ri ght Arm] Pulse Oximetry 99 99 Oxygen Delivery Me thod 03/18/25 19:02 03/18/25 19:07 03/18/25 19:09 Temperature Pulse Rate 100 Pulse Rate [Pulse Oximeter] Respiratory Rate Blood Pressure 139/90 H Blood Pressure [Le ft Arm] Blood Pressure [Ri ght Arm] Pulse Oximetry 97 99 Oxygen Delivery Me thod 03/18/25 19:12 03/18/25 19:17 03/18/25 19:22 Temperature Pulse Rate Pulse Rate [Pulse Oximeter] Respiratory Rate Blood Pressure Blood Pressure [Le ft Arm] Blood Pressure [Ri ght Arm] Pulse Oximetry 99 98 98 Oxygen Delivery Ma thod 03/18/25 19:23 03/18/25 19:27 03/18/25 19:32 Temperature Pulse Rate 94 Pulse Rate [Pulse Oximeter] Respiratory Rate Blood Pressure 137/86 Blood Pressure [Le ft Arm] Blood Pressure [Ri ght Arm] Pulse Oximetry 98 100 Oxygen Delivery Ma thod 03/18/25 19:37 03/18/25 19:39 03/18/25 19:42 Temperature Pulse Rate 113 H Pulse Rate [Pulse Oximeter] Respiratory Rate Blood Pressure 122/70 Blood Pressure [Le ft Arm] Blood Pressure [Ri ght Arm] [facility] 03/18/25 19:52 03/18/25 19:57 Temperature Pulse Rate Pulse Rate [Pulse Oximeter] Respiratory Rate Blood Pressure Blood Pressure [Le ft Arm] Blood Pressure [Ri ght Arm] Pulse Oximetry 98 [facility] 20[facility]02 03/18/25 20:07 03/18/25 20:12 Temperature Pulse Rate Pulse Rate [Pulse Oximeter] Respiratory Rate Blood Pressure Blood Pressure [Le ft Arm] Blood Pressure [Ri ght Arm] Pulse Oximetry 100 100 100 Oxygen Delivery Ma thod 03/18/25 20:17 03/18/25 20:22 03/18/25 20:25 Temperature Pulse Rate 148 H Pulse Rate [Pulse Oximeter] Respiratory Rate Blood Pressure 136/75 Blood Pressure [Le ft Arm] Blood Pressure [Ri ght Arm] Pulse Oximetry 100 96 Oxygen Delivery Ma thod 03/18/25 20:27 03/18/25 20:30 03/18/25 20:33 Temperature Pulse Rate Pulse Rate [Pulse Oximeter] Respiratory Rate Blood Pressure Blood Pressure [Le ft Arm] Blood Pressure [Ri ght Arm] Pulse Oximetry 95 91 98 Oxygen Delivery Ma thod 03/18/25 20:38 03/18/25 20:43 03/18/25 20:48 Temperature Pulse Rate 106 H Pulse Rate [Pulse Oximeter] Respiratory Rate Blood Pressure 131/69 Blood Pressure [Le ft Arm] Blood Pressure [Ri ght Arm] Pulse Oximetry 96 97 99 Oxygen Delivery Me thod 03/18/25 20:53 03/18/25 20:54 03/18/25 20:55 Temperature 98.0 F Pulse Rate 87 Pulse Rate [Pulse Oximeter] Respiratory Rate Blood Pressure 118/57 L Blood Pressure [Le ft Arm] Blood Pressure [Ri ght Arm] Pulse Oximetry 98 Oxygen Delivery Me thod 03/18/25 20:58 03/18/25 21:09 03/18/25 21:25 Temperature Pulse Rate 91 88 Pulse Rate [Pulse Oximeter] Respiratory Rate Blood Pressure 114/59 L 136/69 Blood Pressure [Le ft Arm] Blood Pressure [Ri ght Arm] Pulse Oximetry 98 Oxygen Delivery Me thod 03/18/25 21:25 03/18/25 21:40 03/18/25 21:54 Temperature 98.0 F Pulse Rate 85 88 Pulse Rate [Pulse Oximeter] Respiratory Rate Blood Pressure 128/69 129/72 Blood Pressure [Le ft Arm] Blood Pressure [Ri ght Arm] [facility]xim[facility] 21:54 03/18/25 22:09 03/18/25 22:24 Temperature 98.6 F Pulse Rate 89 95 Pulse Rate [Pulse Oximeter] Respiratory Rate Blood Pressure 126/62 120/60 Blood Pressure [Le ft Arm] Blood Pressure [Ri ght Arm] Pulse Oximetry Oxygen Delivery Me od 03/18/25 22:39 03/18/25 22:54 03/19/25 00:16 Temperature 98.6 F Pulse Rate 94 87 Pulse Rate [Pulse Oximeter] 85 Respiratory Rate 18 Blood Pressure 114/60 115/60 Blood Pressure [Le ft Arm] Blood Pressure [Ri ght Arm] 113/72 Pulse Oximetry 94 Oxygen Delivery Me thod Room Air 03/19/25 04:00 03/19/25 07:47 Temperature 98.1 F 98.1 F Pulse Rate Pulse Rate [Pulse Oximeter] 82 76 Respiratory Rate 16 16 Blood Pressure Blood Pressure [Le ft Arm] 104/73 Blood Pressure [Ri ght Arm] 102/69 Pulse Oximetry 95 97 Oxygen Delivery Me thod Room Air Room Air OB - DS: Summary Hospital Course Hospital Course: The patient is a 34 year old G [] P [] at [] weeks gestation that was admitted to the Center on 03/18/25 for []. She had an [uncomplicated/complicated] [vaginal/] delivery. She delivered a viable [male/female] . She is [breast/bottle] feeding. the patient has done well. Infant Gender: Male Time Spent with Patient Time attestation: Total time spent providing and/or coordinating discharge services: Discharge Plan Discharge Disposition: Home, Self-Care Date of Admission: 03/18/25 06:24 Attending Provider on Discharge: Janessa Garcia Primary Care Provider: Monika Blackman Condition: Stable Anticipated Discharge Date/Time: 03/19/25 12:17 Discharge Medications: New docusate sodium 100 mg Capsule 100 mg PO BID Qty: 100 0RF ibuprofen 600 mg Tablet 600 mg PO Q6H PRNQty: 30 0RF Continued PNV #[id number] acid-dha 35 mg iron-5 mg iron-1 mg capsule 1 cap PO QDAY Discontinued (DME) lancets [FreeStyle Lancets] 28 gauge misc See Rx Instructions .ROUTE QID Qty: 100 Rx Instructions: As directed (DME) FreeStyle Lite Strips Strip See Rx Instructions .ROUTE QID Qty: 10 Rx Instructions: As directed (DME) lancets Misc See Rx Instructions .MEDSUPPLY Qty: 360 3RF Rx Instructions: Test blood sugar 4 times daily. ferrous sulfate [FeroSul] 325 mg (65 mg iron) tablet 325 mg PO QDAY (DME) Test Strips Misc See Rx Instructions .MEDSUPPLY Qty: 360 3RF Rx Instructions: Test blood sugar 4 times daily. Discharge Orders: Discharge Order (Routine); Ordered 03/19/25 Ordered By: Janessa Garcia Patient Education: Vaginal Delivery (DC) Additional Instructions: Discharge instructions were reviewed with the patient including signs and symptoms of infection and home going medications Nothing vaginally for 6 weeks: no tampons or intercourse Off Work or School for a minimum of 6 weeks Symptoms to report to doctor: * Bleeding that saturates more than one pad per hour * Passing clots larger than the size of a golf ball * Pain not relieved by prescribed medication * Fever above 100.4 degrees Fahrenheit * A foul vaginal odor * Difficulty in emotions, mood, and functions * Thoughts of hurting yourself and/or * Painful, reddened area in your breast * Any drainage, redness, or tenderness in your IV/epidural site * Severe headache that doesn't improve after taking medications * Changes in vision, including temporary loss of vision, blurred vision, and/or light sensitivity * Upper abdominal pain (usually under ribs on the right side) * Decrease in urination or painful, frequent urinating * Chest pain * Shortness of breath * Tenderness or pain with redness and/swelling in the calf(s) of your leg Follow-up appointments: Optional 2-week visit: discuss infant feeding concerns, review control options and screen for anxiety/depression. 6-week visit for an annual exam. consultation services are available to all mothers and babies for the first year after delivery.? To make an appointment, please call [phone]. Activity Level: Other Discharge Diet: Regular Follow Up Appointments: Monika Blackman, PROGRESSIVE CARE UNIT REGISTERED NURSE, SUSTAINABLE COMMUNITIES DESIGNER [Primary Care Provider, Family Practice] [facility] [Outside] Forms: [employer] Info Instructions
[2025-03-19 13:24] VITALS: BP 96/64; PULSE 83; RESP 16; TEMP 36.6; O2SAT 96
[2025-03-19 16:04] VITALS: BP 98/68; PULSE 79; RESP 16; TEMP 36.6; O2SAT 96
[2025-03-19] MEDS: ACETAMINOPHEN 500 MG TABLET 1000 MG PO ×2 (16:14→22:01)
[2025-03-19] MEDS: MEASLES,MUMPS,RUBELLA VACC/PF 1 DOSE INJ 1 EACH SUBCUT (16:35)
[2025-03-19 19:40] VITALS: BP 103/70; PULSE 77; RESP 16; TEMP 36.8; O2SAT 98
== END 2025-03-19 22:17 | disposition home or self-care (01) | DRG 807 ==
PROVIDERS: Admitting Provider Obstetrics & Gynecology; PCP Nurse Practitioner Family; Visit Provider Obstetrics & Gynecology
DX: O24.429 Gestational diabetes mellitus in childbirth, unspecified control (principal); Z37.0 Single live birth; O32.0XX0 Maternal care for unstable lie, not applicable or unspecified; O99.02 Anemia complicating childbirth; D50.9 Iron deficiency anemia, unspecified; Z3A.38 38 weeks gestation of pregnancy
CPT/HCPCS: 01967; 36415; 76815; 82962; 85018; 85025; 86592; 86850; 86900; 86901; 88307; A9270; J2405; J2795; J7120

== ENCOUNTER 2025-07-15 06:07 | Day surgery (SDC) | payer OTHER, SELFPAY ==
[2025-07-15] VITALS (18 sets, daily range): BP systolic 103–119; BP diastolic 64–79; PULSE 71–110; RESP 14–16; TEMP 36.3–36.7; O2SAT 90–97; BMI 34.7
[2025-07-15] MEDS: LACTATED RINGERS 1000 ML 1,000 ML 100 ML IV ×2 (06:10→09:01)
[2025-07-15] MEDS: SODIUM CHLORIDE 0.9 % (FLUSH) 10 ML SYRINGE IVF (06:46)
[2025-07-15 06:54] LABS: Ur HCG Qualitative* Negative (Negative)
[2025-07-15] MEDS: BUPIVACAINE 0.25% 30 ML INJECTION (07:58)
[2025-07-15] MEDS: SILVER NITRATE APPLICATOR 1 EACH STICK..EA. TOPICAL (08:06)
--- NOTE | 2025-07-15 08:35 | P.ANES_ITS ---
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
--- NOTE | 2025-07-15 08:35 | W.ANESCHARGE ---
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
--- NOTE | 2025-07-15 08:51 | P.GYNPRC_ITS ---
Procedure Note Date of procedure: 07/15/25 Will [facility] bill your pro fee for this procedure?: Yes Pre-op diagnosis: Multiparity Undesired fertility Post-op diagnosis: Same Procedure: Laparoscopic bilateral salpingectomy Anesthesia: GETA Complications: None Surgeon: Luna Valdez MD [employer] Underwriter: Jessenia Cortez Estimated blood loss (mL): 5 IV fluids (mL): 800 Urine Output (mL): 200 Pathology: specimen obtained, sent to pathology (bilateral Fallopian tubes) Condition: stable Disposition: same day Findings: 1. Upon pelvic exam under anesthesia, the cervix and vagina were normal in appearance. Uterus was mobile and anteverted, of normal size and texture. There were no palpable adnexal masses. 2. Upon laparoscopy, survey of the upper abdomen revealed a normal appearance to the inferior edge of the liver, gallbladder and stomach. Bowels were grossly normal appearance. Survey of the pelvis revealed normal appearance to the uterus. Bilateral tubes and ovaries were normal in appearance. The cul-de-sac and bladder reflection were normal in appearance. Procedure Description: Patient was taken to the operating room with IV running. She was positioned in dorsal lithotomy position with her legs fully supported in Yellofin stirrups. General anesthesia was administered. She was prepped and draped in the usual sterile fashion. Bimanual exam was performed for the above-noted findings. Speculum was inserted. A single-toothed uterine manipulator was inserted through the cervix into the lower uterine segment, and affixed to the anterior cervical lip. Speculum was removed. Rodrigez catheter was placed. Patient's legs were placed in neutral position. Attention was turned to patient's abdomen. The infraumbilical area was infiltrated with small amount of Marcaine. An infraumbilical incision was made with a scalpel and carried through to the underlying layer of fascia with a hemostat. The 5 mm Fios Kii trocar was assembled with laparoscope within, and insufflator attached. While tenting up the abdomen, the trocar was passed through the anterior abdominal wall into the peritoneal cavity. Trocar was removed. Pneumoperitoneum was achieved. Survey of abdomen and pelvis revealed the above-noted findings. Two additional port sites were created. The first was in the patient's left lower quadrant, just superior medial to the left ASIS. The second was a hand's breath superior to and slightly medial to the first. Each was infiltrated with small amount of Marcaine prior to incision. A 5 mm incision was made at each site, making sure the large vessels were out of harm's way. A 5 mm Fios Kii port was inserted at each site, under direct visualization and without complication. The balloon on each of the three ports was inflated, holding each in place. The left tube was elevated. The blood supply was cauterized and transected with the I Do Venuesunderbeat cautery device. Dissection was carried laterally to medially through the mesosalpinx, and the tube was ultimately cauterized and transected at the left uterine cornua. Hemostasis was noted. Left tube was removed through the port and sent to pathology. This procedure was repeated on the right side, and hemostasis was again noted. Right tube was removed the port and sent to pathology. All instruments were removed from the ports, and pneumoperitoneum was released. The ports were removed. The skin of each port site was closed with a subcuticular stitch of 4-0 Monocryl. Surgical glue was applied above this. With the patient's legs back in lithotomy position, the uterine manipulator was removed. Hemostasis was noted. The Rodrigez catheter was removed. Patient tolerated procedure well and was taken to recovery area in stable condition.
[2025-07-15] MEDS: ONDANSETRON 2 MG/ML inj 4 MG IVP (09:01)
--- NOTE | 2025-07-15 10:03 | P.ANES_ITS ---
Anesthesia Charges Start Date/Time Anesthesia Start Date: 07/15/25 Anesthesia Start Time: 07:17 Stop Date/Time Anesthesia Stop Date: 07/15/25 Anesthesia Stop Time: 08:31 Coding CPT Codes CPT Codes: ANESTH SURG LOWER ABDOMEN - 61764 ([id number]) QK - [facility] 2-4 CNCRNT ANES PROC, QX - SANITARY INSPECTOR SVC W/ MD MED DIRECTION, P2 - PATIENT W/MILD SYST DISEASE
--- NOTE | 2025-07-15 10:03 | W.ANESCHARGE ---
Anesthesia Charges Start Date/Time Anesthesia Start Date: 07/15/25 Anesthesia Start Time: 07:17 Stop Date/Time Anesthesia Stop Date: 07/15/25 Anesthesia Stop Time: 08:31 Coding CPT Codes CPT Codes: ANESTH SURG LOWER ABDOMEN - 34160 ([id number]) QK - CERTIFIED REGISTERED NURSE PRACTITIONER 2-4 CNCRNT ANES PROC, QX - DEFENCE INTELLIGENCE ANALYST SVC W/ MD MED DIRECTION, P2 - PATIENT W/MILD SYST DISEASE
[2025-07-15] MEDS: METOCLOPRAMIDE HCL 5 MG/ML INJ 10 MG IVP (10:38)
== END 2025-07-15 11:25 | disposition home or self-care (01) ==
LOC: OR 06:09
PROVIDERS: PCP Nurse Practitioner Family; Visit Provider Obstetrics & Gynecology
PROC: (CPT 58661; principal; 2025-07-15 07:15)
DX: Z30.2 Encounter for sterilization (principal)
CPT/HCPCS: 58661; 00840; 36415; 81025; 86850; 86900; 86901; A9270; J0330; J0665; J1100; J1885; J2250; J2405; J2704; J2765; J3010; J3490; J7120